=== PATIENT | male | born 1950 | race Hispanic/Latino ===

== ENCOUNTER 2019-01-11 19:57 | Inpatient (IN) | payer MEDICARE ==
--- NOTE | 2019-01-11 20:32 | Emergency Department Report ---
ED Neuro Deficit HPI - General Chief Complaint: Neuro Symptoms/Deficit Stated Complaint: HYPERGLYCEMIA Time Seen by Provider: 01/11/19 20:16 Source: patient, EMS Mode of arrival: Stretcher Limitations: Physical Limitation - History of Present Illness Initial Comments: Patient is a 68-year-old male that presents emergency with complaints of altered mental status and slurred speech. History Per the patient's caregiver and family and EMS. The patient last known well time is 1545 yesterday. She says she came back this morning at 9 AM and noticed he was having difficulties moving and his speech slurred. Patient's caregiver states that patient is on chronic pain medications and patches and tends to overmedicate. Brought in by EMS. Report received from EMS. Patient has a history of chronic pain, polypharmacy, diabetes, hypertension Report received from EMS: EMS states that the patient's blood pressure 124/74, heart rate 104, blood sugar read as high. Patient's presenting illness was slurred speech and difficulty stocking. Negative on the [place] stroke scale -: Sudden Location: speech Presenting Symptoms: Present: Unable to Speak Clearly, Altered Mental Status History of same: Yes Place: home Severity: severe Improves With: none Worsens With: none On Anticoagulants: No Context: sudden onset Associated Symptoms: confusion, loss of appetite, malise, weakness - Related Data Home Medications: Home Medications Medication Instructions Recorded Confirmed Last Taken Pregabalin [Lyrica] 300 mg PO BID 07/24/18 01/11/19 Unknown Buprenorphine [Butrans] 1 each TD QWEEK MDD 1 01/11/19 01/11/19 01/08/19 Insulin Glargine [Lantus VIAL] 40 units SQ QHS 01/11/19 01/11/19 Unknown Lotensin Hct 20-12.5 mg Tablet 1 tab PO DAILY 01/11/19 01/11/19 Unknown Allergies/Adverse Reactions: Allergies Allergy/AdvReac Type Severity Reaction Status Date / Time codeine Allergy Shortness Verified 01/11/19 20:03 of Breath levofloxacin [From Levaquin] AdvReac Anaphylaxis Verified 01/11/19 20:03 ED Review of Systems ROS: Stated complaint: HYPERGLYCEMIA Other details as noted in HPI Comment: Unobtainable due to pts medical conditions ED Past Medical Hx - Past Medical History Previous Medical History?: Yes Hx Hypertension: Yes Hx Diabetes: Yes Additional medical history: PVD - Surgical History Past Surgical History?: Yes Additional Surgical History: [id number] disc surgery in 1988 - Family History Family history: no significant - Social History Smoking Status: Unknown if ever smoked Substance Use Type: None - Medications Home Medications: Home Medications Medication Instructions Recorded Confirmed Last Taken Type Pregabalin [Lyrica] 300 mg PO BID 07/24/18 01/11/19 Unknown History Buprenorphine [Butrans] 1 each TD QWEEK MDD 1 01/11/19 01/11/19 01/08/19 History Insulin Glargine [Lantus VIAL] 40 units SQ QHS 01/11/19 01/11/19 Unknown History Lotensin Hct 20-12.5 mg Tablet 1 tab PO DAILY 01/11/19 01/11/19 Unknown History ED Neuro Physical Exam - General Limitations: Altered Mental Status, Physical Limitation General appearance: alert, in no apparent distress Suspected Stroke: Yes - Head Head exam: Present: atraumatic, normocephalic - Eye Eye exam: Present: normal appearance, PERRL Pupils: Present: normal accommodation - ENT ENT exam: Present: mucous membranes moist - Neck Neck exam: Present: normal inspection - Respiratory Respiratory exam: Present: normal lung sounds bilaterally. Absent: respiratory distress, wheezes, rales - Cardiovascular Cardiovascular Exam: Present: regular rate, normal rhythm. Absent: systolic murmur, diastolic murmur, rubs, gallop - GI/Abdominal GI/Abdominal exam: Present: soft, normal bowel sounds. Absent: distended, tenderness, guarding - Rectal Rectal exam: Present: deferred - Extremities Exam Extremities exam: Present: normal capillary refill, pedal edema, other (multiple areas of skin breakdown and redness on the patient's bilateral feet.). Absent: calf tenderness - Back Exam Back exam: Present: normal inspection - Neurological Exam Neurological exam: Present: alert, altered (patient is A&O 2) - NIHSS Assessment Interval: Baseline 1a. Level of Consciousness: alert/keenly responsive 1b. LOC Questions: answers both correctly 1c. LOC Commands: performs tasks correctly 2. Best Gaze: normal 3. Visual: no visual loss 4. Facial Palsy: minor paralysis 5b. Motor Arm Right: no drift 5a. Motor Arm Left: no drift 6a. Motor Leg Left: no drift 6b. Motor Leg Right: no drift 7. Limb Ataxia: absent 8. Sensory: normal 9. Best Language: no aphasia 10. Dysarthria: mild/moderate dysarthria 11. Extinction/Inattention: no abnormality Total Score: 2 Stroke Severity: Minor Stroke - Skin Skin exam: Present: warm, dry, normal color, rash (Vesicular rash noted on right hip.), other (multiple areas of breakdown on patient's bilateral feet and toes with redness. Redness noted to the sacral area but no skin breakdown to the sacrum.) ED Course Vital Signs 01/11/19 01/11/19 01/11/19 20:45 21:00 21:01 Temperature 99.5 F Pulse Rate 112 H 108 H Respiratory 7 L 15 18 Rate Blood Pressure 132/96 Blood Pressure 132/96 [Right] O2 Sat by Pulse 98 97 Oximetry 01/11/19 01/11/19 01/11/19 21:15 21:30 21:45 Temperature Pulse Rate 104 H 107 H 107 H Respiratory 15 25 H 12 Rate Blood Pressure 153/69 150/94 131/67 Blood Pressure [Right] O2 Sat by Pulse 97 97 97 Oximetry 01/11/19 01/11/19 01/11/19 22:00 22:15 22:30 Temperature Pulse Rate 108 H 107 H 107 H Respiratory 17 14 12 Rate Blood Pressure 131/67 139/92 126/90 Blood Pressure [Right] O2 Sat by Pulse 96 97 98 Oximetry 01/11/19 01/11/19 01/11/19 22:45 23:00 23:08 Temperature Pulse Rate 109 H 109 H 108 H Respiratory 27 H 12 13 Rate Blood Pressure 140/80 135/90 Blood Pressure [Right] O2 Sat by Pulse 97 99 99 Oximetry 01/11/19 01/11/19 01/11/19 23:15 23:30 23:45 Temperature Pulse Rate 117 H 108 H 110 H Respiratory 16 28 H 26 H Rate Blood Pressure 150/99 134/85 124/74 Blood Pressure [Right] O2 Sat by Pulse 99 97 99 Oximetry 01/12/19 01/12/19 00:00 00:15 Temperature Pulse Rate 109 H 109 H Respiratory 27 H 11 L Rate Blood Pressure 119/79 110/74 Blood Pressure [Right] O2 Sat by Pulse Oximetry - Reevaluation(s) Reevaluation #1: I discussed all results with patient and family. Patient will be admitted to the hospitalist service. Patient and family agree with plan of care. 01/11/19 22:25 - Consultations Consultation #1: Discussed case with neurologist and neurologist does not recommend TPA or CTA and recommends admission for further stroke workup. 01/11/19 20:45 Consultation #2: Hospitalist consult for admission. Hospitalist to admit patient and assume care of patient. 01/11/19 22:25 - Lab Data Result diagrams: 01/11/19 20:33 01/11/19 23:00 Lab Results 01/11/19 01/11/19 01/11/19 Range/Units 20:33 20:33 20:33 WBC 14.8 H (4.5-11.0) K/mm3 RBC 4.96 (3.65-5.03) M/mm3 Hgb 13.6 (11.8-15.2) gm/dl Hct 42.2 (35.5-45.6) % MCV 85 (84-94) fl MCH 28 (28-32) pg MCHC 32 (32-34) % RDW 16.8 H (13.2-15.2) % Plt Count 324 (140-440) K/mm3 Add Manual Diff Complete Total Counted 100 Seg Neuts % (Manual) 77.0 H (40.0-70.0) % Band Neutrophils % 1.0 % Lymphocytes % (Manual) 16.0 (13.4-35.0) % Reactive Lymphs % (Man) 0 % Monocytes % (Manual) 6.0 (0.0-7.3) % Eosinophils % (Manual) 0 (0.0-4.3) % Basophils % (Manual) 0 (0.0-1.8) % Metamyelocytes % 0 % Myelocytes % 0 % Promyelocytes % 0 % Blast Cells % 0 % Nucleated RBC % Not Reportable Seg Neutrophils # Man 11.4 H (1.8-7.7) K/mm3 Band Neutrophils # 0.1 K/mm3 Lymphocytes # (Manual) 2.4 (1.2-5.4) K/mm3 Abs React Lymphs (Man) 0.0 K/mm3 Monocytes # (Manual) 0.9 H (0.0-0.8) K/mm3 Eosinophils # (Manual) 0.0 (0.0-0.4) K/mm3 Basophils # (Manual) 0.0 (0.0-0.1) K/mm3 Metamyelocytes # 0.0 K/mm3 Myelocytes # 0.0 K/mm3 Promyelocytes # 0.0 K/mm3 Blast Cells # 0.0 K/mm3 WBC Morphology Not Reportable Hypersegmented Neuts Not Reportable Hyposegmented Neuts Not Reportable Hypogranular Neuts Not Reportable Smudge Cells Not Reportable Toxic Granulation Not Reportable Toxic Vacuolation Not Reportable Dohle Bodies Not Reportable Pelger-Huet Anomaly Not Reportable Marcus Rods Not Reportable Platelet Estimate Consistent w auto Clumped Platelets Not Reportable Plt Clumps, EDTA Not Reportable Large Platelets Not Reportable Giant Platelets Not Reportable Platelet Satelliting Not Reportable Plt Morphology Comment Not Reportable RBC Morphology Not Reportable Dimorphic RBCs Not Reportable Polychromasia Not Reportable Hypochromasia Not Reportable Poikilocytosis Not Reportable Anisocytosis 1+ Microcytosis Not Reportable Macrocytosis Not Reportable Spherocytes Not Reportable Pappenheimer Bodies Not Reportable Sickle Cells Not Reportable Target Cells Not Reportable Tear Drop Cells Not Reportable Ovalocytes Not Reportable Helmet Cells Not Reportable Nguyen-Parkdale Bodies Not Reportable Strum Rings Not Reportable [place] Cells Not Reportable Bite Cells Not Reportable Crenated Cell Not Reportable Elliptocytes Not Reportable Acanthocytes (Spur) Not Reportable Rouleaux Not Reportable Hemoglobin C Crystals Not Reportable Schistocytes Not Reportable Malaria parasites Not Reportable Edson Bodies Not Reportable Hem Pathologist Commnt No PT 15.3 H (12.2-14.9) Sec. INR 1.24 H (0.87-1.13) APTT 22.4 L (24.2-36.6) Sec. Thrombin Time (15.1-19.6) Sec. VBG pH (7.320-7.420) Sodium 124 L (137-145) mmol/L Potassium 3.8 (3.6-5.0) mmol/L Chloride 87.1 L (98-107) mmol/L Carbon Dioxide 20 L (22-30) mmol/L Anion Gap 21 mmol/L BUN 45 H (9-20) mg/dL Creatinine 1.3 (0.8-1.5) mg/dL Estimated GFR 55 ml/min BUN/Creatinine Ratio 35 % Glucose 801 H* (75-100) mg/dL POC Glucose (70-105) Lactic Acid (0.7-2.0) mmol/L Calcium 8.3 L (8.4-10.2) mg/dL Phosphorus (2.5-4.5) mg/dL Magnesium (1.7-2.3) mg/dL Troponin T 0.036 H (0.00-0.029) ng/mL Triglycerides 301 H (2-149) mg/dL Cholesterol 137 (50-199) mg/dL LDL Cholesterol Direct 85 (50-130) mg/dL HDL Cholesterol 25 L (40-59) mg/dL Cholesterol/HDL Ratio 5.48 % 01/11/19 01/11/19 01/11/19 Range/Units 20:33 20:33 22:02 WBC (4.5-11.0) K/mm3 RBC (3.65-5.03) M/mm3 Hgb (11.8-15.2) gm/dl Hct (35.5-45.6) % MCV (84-94) fl MCH (28-32) pg MCHC (32-34) % RDW (13.2-15.2) % Plt Count (140-440) K/mm3 Add Manual Diff Total Counted Seg Neuts % (Manual) (40.0-70.0) % Band Neutrophils % % Lymphocytes % (Manual) (13.4-35.0) % Reactive Lymphs % (Man) % Monocytes % (Manual) (0.0-7.3) % Eosinophils % (Manual) (0.0-4.3) % Basophils % (Manual) (0.0-1.8) % Metamyelocytes % % Myelocytes % % Promyelocytes % % Blast Cells % % Nucleated RBC % Seg Neutrophils # Man (1.8-7.7) K/mm3 Band Neutrophils # K/mm3 Lymphocytes # (Manual) (1.2-5.4) K/mm3 Abs React Lymphs (Man) K/mm3 Monocytes # (Manual) (0.0-0.8) K/mm3 Eosinophils # (Manual) (0.0-0.4) K/mm3 Basophils # (Manual) (0.0-0.1) K/mm3 Metamyelocytes # K/mm3 Myelocytes # K/mm3 Promyelocytes # K/mm3 Blast Cells # K/mm3 WBC Morphology Hypersegmented Neuts Hyposegmented Neuts Hypogranular Neuts Smudge Cells Toxic Granulation Toxic Vacuolation Dohle Bodies Pelger-Huet Anomaly Marcus Rods Platelet Estimate Clumped Platelets Plt Clumps, EDTA Large Platelets Giant Platelets Platelet Satelliting Plt Morphology Comment RBC Morphology Dimorphic RBCs Polychromasia Hypochromasia Poikilocytosis Anisocytosis Microcytosis Macrocytosis Spherocytes Pappenheimer Bodies Sickle Cells Target Cells Tear Drop Cells Ovalocytes Helmet Cells Nguyen-Parkdale Bodies Strum Rings [place] Cells Bite Cells Crenated Cell Elliptocytes Acanthocytes (Spur) Rouleaux Hemoglobin C Crystals Schistocytes Malaria parasites Edson Bodies Hem Pathologist Commnt PT (12.2-14.9) Sec. INR (0.87-1.13) APTT (24.2-36.6) Sec. Thrombin Time 17.8 (15.1-19.6) Sec. VBG pH (7.320-7.420) Sodium 128 L (137-145) mmol/L Potassium 4.0 (3.6-5.0) mmol/L Chloride 91.8 L (98-107) mmol/L Carbon Dioxide 21 L (22-30) mmol/L Anion Gap 19 mmol/L BUN 44 H (9-20) mg/dL Creatinine 1.2 (0.8-1.5) mg/dL Estimated GFR > 60 ml/min BUN/Creatinine Ratio 37 % Glucose 718 H* (75-100) mg/dL POC Glucose (70-105) Lactic Acid (0.7-2.0) mmol/L Calcium 8.0 L (8.4-10.2) mg/dL Phosphorus 3.40 (2.5-4.5) mg/dL Magnesium 2.30 (1.7-2.3) mg/dL Troponin T (0.00-0.029) ng/mL Triglycerides (2-149) mg/dL Cholesterol (50-199) mg/dL LDL Cholesterol Direct (50-130) mg/dL HDL Cholesterol (40-59) mg/dL Cholesterol/HDL Ratio % 01/11/19 01/11/19 01/11/19 Range/Units 22:02 22:02 23:00 WBC (4.5-11.0) K/mm3 RBC (3.65-5.03) M/mm3 Hgb (11.8-15.2) gm/dl Hct (35.5-45.6) % MCV (84-94) fl MCH (28-32) pg MCHC (32-34) % RDW (13.2-15.2) % Plt Count (140-440) K/mm3 Add Manual Diff Total Counted Seg Neuts % (Manual) (40.0-70.0) % Band Neutrophils % % Lymphocytes % (Manual) (13.4-35.0) % Reactive Lymphs % (Man) % Monocytes % (Manual) (0.0-7.3) % Eosinophils % (Manual) (0.0-4.3) % Basophils % (Manual) (0.0-1.8) % Metamyelocytes % % Myelocytes % % Promyelocytes % % Blast Cells % % Nucleated RBC % Seg Neutrophils # Man (1.8-7.7) K/mm3 Band Neutrophils # K/mm3 Lymphocytes # (Manual) (1.2-5.4) K/mm3 Abs React Lymphs (Man) K/mm3 Monocytes # (Manual) (0.0-0.8) K/mm3 Eosinophils # (Manual) (0.0-0.4) K/mm3 Basophils # (Manual) (0.0-0.1) K/mm3 Metamyelocytes # K/mm3 Myelocytes # K/mm3 Promyelocytes # K/mm3 Blast Cells # K/mm3 WBC Morphology Hypersegmented Neuts Hyposegmented Neuts Hypogranular Neuts Smudge Cells Toxic Granulation Toxic Vacuolation Dohle Bodies Pelger-Huet Anomaly Marcus Rods Platelet Estimate Clumped Platelets Plt Clumps, EDTA Large Platelets Giant Platelets Platelet Satelliting Plt Morphology Comment RBC Morphology Dimorphic RBCs Polychromasia Hypochromasia Poikilocytosis Anisocytosis Microcytosis Macrocytosis Spherocytes Pappenheimer Bodies Sickle Cells Target Cells Tear Drop Cells Ovalocytes Helmet Cells Nguyen-Parkdale Bodies Strum Rings Luz Cells Bite Cells Crenated Cell Elliptocytes Acanthocytes (Spur) Rouleaux Hemoglobin C Crystals Schistocytes Malaria parasites Edson Bodies Hem Pathologist Commnt PT (12.2-14.9) Sec. INR (0.87-1.13) APTT (24.2-36.6) Sec. Thrombin Time (15.1-19.6) Sec. VBG pH 7.401 (7.320-7.420) Sodium 133 L (137-145) mmol/L Potassium 3.5 L (3.6-5.0) mmol/L Chloride 95.1 L (98-107) mmol/L Carbon Dioxide 24 (22-30) mmol/L Anion Gap 17 mmol/L BUN 43 H (9-20) mg/dL Creatinine 1.4 (0.8-1.5) mg/dL Estimated GFR 51 ml/min BUN/Creatinine Ratio 31 % Glucose 588 H* (75-100) mg/dL POC Glucose (70-105) Lactic Acid 1.80 (0.7-2.0) mmol/L Calcium 7.8 L (8.4-10.2) mg/dL Phosphorus (2.5-4.5) mg/dL Magnesium (1.7-2.3) mg/dL Troponin T (0.00-0.029) ng/mL Triglycerides (2-149) mg/dL Cholesterol (50-199) mg/dL LDL Cholesterol Direct (50-130) mg/dL HDL Cholesterol (40-59) mg/dL Cholesterol/HDL Ratio % // Range/Units 23:02 WBC (4.5-11.0) K/mm3 RBC (3.65-5.03) M/mm3 Hgb (11.8-15.2) gm/dl Hct (35.5-45.6) % MCV (84-94) fl MCH (28-32) pg MCHC (32-34) % RDW (13.2-15.2) % Plt Count (140-440) K/mm3 Add Manual Diff Total Counted Seg Neuts % (Manual) (40.0-70.0) % Band Neutrophils % % Lymphocytes % (Manual) (13.4-35.0) % Reactive Lymphs % (Man) % Monocytes % (Manual) (0.0-7.3) % Eosinophils % (Manual) (0.0-4.3) % Basophils % (Manual) (0.0-1.8) % Metamyelocytes % % Myelocytes % % Promyelocytes % % Blast Cells % % Nucleated RBC % Seg Neutrophils # Man (1.8-7.7) K/mm3 Band Neutrophils # K/mm3 Lymphocytes # (Manual) (1.2-5.4) K/mm3 Abs React Lymphs (Man) K/mm3 Monocytes # (Manual) (0.0-0.8) K/mm3 Eosinophils # (Manual) (0.0-0.4) K/mm3 Basophils # (Manual) (0.0-0.1) K/mm3 Metamyelocytes # K/mm3 Myelocytes # K/mm3 Promyelocytes # K/mm3 Blast Cells # K/mm3 WBC Morphology Hypersegmented Neuts Hyposegmented Neuts Hypogranular Neuts Smudge Cells Toxic Granulation Toxic Vacuolation Dohle Bodies Pelger-Huet Anomaly Marcus Rods Platelet Estimate Clumped Platelets Plt Clumps, EDTA Large Platelets Giant Platelets Platelet Satelliting Plt Morphology Comment RBC Morphology Dimorphic RBCs Polychromasia Hypochromasia Poikilocytosis Anisocytosis Microcytosis Macrocytosis Spherocytes Pappenheimer Bodies Sickle Cells Target Cells Tear Drop Cells Ovalocytes Helmet Cells Nguyen-Parkdale Bodies Strum Rings Luz Cells Bite Cells Crenated Cell Elliptocytes Acanthocytes (Spur) Rouleaux Hemoglobin C Crystals Schistocytes Malaria parasites Edson Bodies Hem Pathologist Commnt PT (12.2-14.9) Sec. INR (0.87-1.13) APTT (24.2-36.6) Sec. Thrombin Time (15.1-19.6) Sec. VBG pH (7.320-7.420) Sodium (137-145) mmol/L Potassium (3.6-5.0) mmol/L Chloride (98-107) mmol/L Carbon Dioxide (22-30) mmol/L Anion Gap mmol/L BUN (9-20) mg/dL Creatinine (0.8-1.5) mg/dL Estimated GFR ml/min BUN/Creatinine Ratio % Glucose (75-100) mg/dL POC Glucose > 500 H (70-105) Lactic Acid (0.7-2.0) mmol/L Calcium (8.4-10.2) mg/dL Phosphorus (2.5-4.5) mg/dL Magnesium (1.7-2.3) mg/dL Troponin T (0.00-0.029) ng/mL Triglycerides (2-149) mg/dL Cholesterol (50-199) mg/dL LDL Cholesterol Direct (50-130) mg/dL HDL Cholesterol (40-59) mg/dL Cholesterol/HDL Ratio % - EKG Data -: EKG Interpreted by Me EKG shows normal: sinus rhythm, axis, intervals, QRS complexes, ST-T waves Rate: tachycardia - Radiology Data Radiology results: report reviewed CT head/brain wo con INDICATION: stroke. TECHNIQUE: Routine CT head without contrast. All CT scans at this location are performed using CT dose reduction for ALARA by means of automated exposure control. COMPARISON: Head CT on 02/29/2016 FINDINGS: BRAIN / INTRACRANIAL CONTENTS: No acute hemorrhage, mass effect, midline shift, or hydrocephalus. No appreciable acute large territorial or lacunar infarct. No chronic infarct. Age-commensurate ventricular and cisternal/sulcal prominence. ORBITS: No significant abnormality of visualized orbits. SINUSES / MASTOIDS: No significant abnormality of visualized sinuses and mastoid air cells. ADDITIONAL FINDINGS: None. IMPRESSION: 1. No acute intracranial abnormality. CHEST 1 VIEW INDICATION / CLINICAL INFORMATION: ams. COMPARISON: None FINDINGS: SUPPORT DEVICES: None. HEART / MEDIASTINUM: No significant abnormality. LUNGS / PLEURA: No significant pulmonary or pleural abnormality. No pneumothorax. ADDITIONAL FINDINGS: No significant additional findings. IMPRESSION: No acute pulmonary or pleural abnormality.. - Medical Decision Making Patient is a 68-year-old male that presents emergency room for slurred speech and difficulty speaking and weakness. Patient's symptoms are gone for more than 24 hours. Last known well time was 345 yesterday. Neurology consultation and code stroke ran based on complaints. Patient's history per caregiver, EMS and family due to the patient's confusion and altered mental status. Neurology recommendations received an neurology note reviewed. Patient is on a candidate for TPA or further advanced imaging i.e. CTA in the ER but will require further stroke workup and MRI as an inpatient. Patient's labs have multiple ab normalities. All labs reviewed. Patient's chest x-ray negative. Patient had CT negative. EKG reviewed and noted tachycardia. Patient given fluids. Patient given antibiotics for skin cellulitis of lower extremities. Patient started on a diabetic ketoacidosis protocol due to acidosis and elevated blood sugar. Patient admitted to the hospitalist service. Patient admitted into the ICU. Differential diagnosis include but not exclusive to weakness, slurred speech, CVA, metabolic encephalopathy, Sirs, sepsis, deconditioning, dehydration, hyperglycemia, DKA, HHS - Differential Diagnosis see MDM Critical Care Time: Yes Critical care attestation.: If time is entered above; I have spent that time in minutes in the direct care of this critically ill patient, excluding procedure time. Critical Care Time: 55 minutes ED Disposition Clinical Impression: SIRS (systemic inflammatory response syndrome), Metabolic encephalopathy, Slurred speech, Dehydration, Weakness, Elevated troponin I level, Physical deconditioning Cellulitis Qualifiers: Site of cellulitis: extremity Site of cellulitis of extremity: lower extremity Laterality: right Qualified Code(s): L03.115 - Cellulitis of right lower limb DKA (diabetic ketoacidoses) Qualifiers: Diabetes mellitus type: type 2 Diabetes mellitus complication detail: without coma Qualified Code(s): E11.10 - Type 2 diabetes mellitus with ketoacidosis without coma Shingles Qualifiers: Herpes zoster complications: without complications Qualified Code(s): B02.9 - Zoster without complications Altered mental state Qualifiers: Altered mental status type: unspecified Qualified Code(s): R41.82 - Altered mental status, unspecified Disposition: DC-09 OP ADMIT IP TO THIS HOSP Is pt being admited?: Yes Does the pt Need Aspirin: No Condition: Critical Time of Disposition: 22:11
--- NOTE | 2019-01-11 20:43 | Consultation ---
History of Present Illness History of present illness: [facility] Consult [facility] Impression: Patient with somnolence and slurred speech. Possible drug intoxication, but given left nasolabial fold flattening need to rule out new right hemispheric stroke. Not a tpa candidate due to: out of window Not an RANDY candidate due to: out of window, presentation not suggestive of LVO Differential Diagnosis: 1. Cardioembolic stroke 2. Small vessel disease/lacune 3. Thromboembolic, [id number] mechanism 4. Hypercoagulable state-related infarct 5. Transient ischemic attack 6. Thrombotic mechanism, large artery disease Comments: Door time: 1956 [facility] contacted: 2010 [facility] at bedside: 2019 NIHSS assessment time: 2027 Recommendations: MRI brain wo ASA Permissive HTN Statin inpatient neurology consultation Inpatient stroke evaluation as per Neurology/ Internal Medicine Discussed with ED MD --------- CC: stroke alert History of Present Illness Patient is a68 year old man with a history of chronic pain, polypharmacy, DM, HTN presenting with AMS. Last seen normal by his caregiver yesterday at 1545. This morning she arrived a little after 0900 and he would not eat or get up to move. His speech has been slurred. Caregiver states she noted some of his pain meds were missing, namely pain patches. She states he tends to overmedicate with his analgesics and this can happen. She was concerned so had him transported to the ED. Diagnostic: CT head wo - nothing acute Exam: NIHSS score: 3 Somnolent Left nasolabial fold flat Slurred speech Medical Decision Making: - Extensive number of diagnosis or management options are considered above. - Extensive amount of complex data reviewed. - High risk of complication and/or morbidity or mortality are associated with differential diagnostic considerations above. - There may be Uncertain outcome and increased probability of prolonged funct ional impairment or high probability of severe prolonged functional impairment associated with some of these differential diagnosis. Medical Data Reviewed: 1.Data reviewed include clinical labs, radiology, Medical Tests; 2.Tests results discussed w/performing or interpreting physician; 3.Obtaining/reviewing old medical records; 4.Obtaining case history from another source; 5.Independent review of image, tracing or specimen. Patient was informed the Neurology Consult would happen via Tele[facility] consult by way of interactive audio and video telecommunications and consented to receiving care in this manner. Medications and Allergies Allergies Allergy/AdvReac Type Severity Reaction Status Date / Time codeine Allergy Shortness Verified 01/11/19 20:03 of Breath levofloxacin [From Levaquin] AdvReac Anaphylaxis Verified 01/11/19 20:03 Home Medications Medication Instructions Recorded Confirmed Last Taken Type Lantus 40 units SQ HS 07/24/18 07/24/18 Unknown History Pregabalin [Lyrica] 300 mg PO BID 07/24/18 07/24/18 Unknown History Lisinopril [Zestril TAB] 20 mg PO QDAY #30 tablet 07/27/18 Unknown Rx Sulfamethoxazole/Trimethoprim 1 each PO Q12HR #10 tablet 07/27/18 Unknown Rx [Bactrim DS TAB] metroNIDAZOLE [Flagyl TAB] 500 mg PO Q8HR #15 tablet 07/27/18 Unknown Rx - Level of Consciousness 1a. Level of Consciousness: arousable/minor stimuli - LOC Questions 1b. LOC Questions: answers both correctly - LOC Command 1c. LOC Commands: performs tasks correctly - Best Gaze 2. Best Gaze: normal - Visual 3. Visual: no visual loss - Facial Palsy 4. Facial Palsy: minor paralysis - Motor Arm 5a. Motor Arm Left: no drift 5b. Motor Arm Right: no drift - Motor Leg 6a. Motor Leg Left: no drift 6b. Motor Leg Right: no drift - Limb Ataxia 7. Limb Ataxia: absent - Sensory 8. Sensory: normal - Best Language 9. Best Language: no aphasia - Dysarthria 10. Dysarthria: mild/moderate dysarthria - Extinction and Inattention 11. Extinction/Inattention: no abnormality - Scoring Total Score: 3 Stroke Severity: Minor Stroke
--- NOTE | 2019-01-11 20:49 | Cat Scan Report ---
CT head/brain wo con INDICATION: stroke. TECHNIQUE: Routine CT head without contrast. All CT scans at this location are performed using CT dos e reduction for ALARA by means of automated exposure control. COMPARISON: Head CT on 02/29/2016 FINDINGS: BRAIN / INTRACRANIAL CONTENTS: No acute hemorrhage, mass effect, midline shift, or hydrocephalus. No appreciable acute large territorial or lacunar infarct. No chronic infarct. Age-commensurate ventricu lar and cisternal/sulcal prominence. ORBITS: No significant abnormality of visualized orbits. SINUSES / MASTOIDS: No significant abnormality of visualized sinuses and mastoid air cells. ADDITIONAL FINDINGS: None. IMPRESSION: 1. No acute intracranial abnormality. Findings discussed with the ordering physician at 7:45 PM central time on 01/11/2019. Signer Name: Peter Charles MD Signed: 01/11/2019 8:45 PM Workstation Name: [id number]
[2019-01-11 20:50] LABS: Hematocrit 42.2 % (35.5-45.6); Hemoglobin 13.6 gm/dl (11.8-15.2); Mean Corpuscular HGB Conc 32 % (32-34); Mean Corpuscular Volume 85 fl (84-94); Platelet Count 324 K/mm3 (140-440); Red Blood Count 4.96 M/mm3 (3.65-5.03); Red Cell Distribution Width 16.8 % (13.2-15.2)
[2019-01-11 21:03] LABS: Calcium 8.3 mg/dL (8.4-10.2)
[2019-01-11 21:06] LABS: INR 1.24 (0.87-1.13); Partial Thromboplastin Time 22.4 Sec. (24.2-36.6)
[2019-01-11] MEDS ORDERED: D50W (25GM) Syringe IV PRN (21:19)
[2019-01-11] MEDS ORDERED: NACL 0.9% 1000 ML 1,000 ML IV ONE (21:19)
[2019-01-11] MEDS ORDERED: MAXIPIME/NS 2 GM/100 ML 2 GM/100 ML BAG IV ONE (21:20)
[2019-01-11] MEDS ORDERED: CLEOCIN 600 MG/50 mL 600 MG/50 ML BAG IV ONE (21:40)
[2019-01-11 21:46] LABS: Chol/HDL Ratio 5.48 %
[2019-01-11 22:00] LABS: Anisocytosis 1+; Band Neutrophils # (Manual) 0.1 K/mm3; Basophils % (Manual) 0 % (0.0-1.8); Eosinophils % (Manual) 0 % (0.0-4.3); Platelet Estimate Consistent w Auto; Total Cells Counted 100
[2019-01-11] MEDS ORDERED: HumuLIN R 100 UNITS in NACL 0.9% 99 ML IV SCH (22:00)
--- NOTE | 2019-01-11 22:45 | XRay Report ---
CHEST 1 VIEW INDICATION / CLINICAL INFORMATION: ams. COMPARISON: None FINDINGS: SUPPORT DEVICES: None. HEART / MEDIASTINUM: No significant abnormality. LUNGS / PLEURA: No significant pulmonary or pleural abnormality. No pneumothorax. ADDITIONAL FINDINGS: No significant additional findings. IMPRESSION: No acute pulmonary or pleural abnormality. Signer Name: Chacho Santos MD FACR Signed: 01/11/2019 10:40 PM Workstation Name: [id number]
[2019-01-11 23:09] LABS: BUN/Creatinine Ratio 37; Blood Urea Nitrogen 44 mg/dL (9-20); Hemolysis Index 27
[2019-01-11 23:39] LABS: Calcium 7.8 mg/dL (8.4-10.2)
[2019-01-12] MEDS ORDERED: VANCOMYCIN PHARMACY TO DOSE IV SCH (01:00)
[2019-01-12] MEDS ORDERED: NACL 0.9% 1000 ML 1,000 ML IV SCH (01:00)
[2019-01-12] MEDS ORDERED: VANCOMYCIN 1,750 MG in NACL 0.9% 500 ML 500 ML IV ONE (01:00)
[2019-01-12] MEDS: KCL 10MEQ/100ML 10 MEQ/100 ML BAG IV SCH ×5 (01:33→14:25)
[2019-01-12] MEDS ORDERED: TORADOL IV NR (03:18)
[2019-01-12] MEDS ORDERED: D5W/0.45% NACL/KCL 20 MEQ 20 MEQ/1,000 ML BAG IV SCH (04:00)
[2019-01-12 04:37] LABS: BUN/Creatinine Ratio 33; Blood Urea Nitrogen 39 mg/dL (9-20); Calcium 8.5 mg/dL (8.4-10.2); Hemolysis Index 5
--- NOTE | 2019-01-12 05:11 | History and Physical Report ---
CHIEF COMPLAINT: Change in mental status. Other complaint includes slurred speech. HISTORY OF PRESENTING ILLNESS: The patient is a 68-year-old male who lives alone and has a tariff clerk coming in to check on him. The patient was noted by the health tariff clerk that came in to be having mental status change with slurred speech. Also, the patient's right foot was noted to be swollen red and oozing fluids and the patient was sent in for evaluation. There was no history of fever or chills and no history of chest pain, shortness of breath, nausea or vomiting. PAST MEDICAL HISTORY: Pertinent for diabetes mellitus, hypertension, peripheral vascular disease. PAST SURGICAL HISTORY: Pertinent for surgery involving the L4, L5, S1 vertebral bones. FAMILY HISTORY: Family history was reviewed and noncontributory. SOCIAL HISTORY: The patient lives alone, does not smoke, does not drink alcohol and does not use illicit drug. MEDICATIONS: The patient is on Lyrica 300 mg by mouth twice daily. The patient is on buprenorphine 1 transdermally every week. The patient is also on Lantus insulin 40 units subcutaneous at bedtime and Lotensin/hydrochlorothiazide 20/12.5 one by mouth daily. ALLERGIES: The patient is allergic to CODEINE and LEVOFLOXACIN. REVIEW OF SYSTEMS: CONSTITUTIONAL: There is no fever, no chills, no diaphoresis. HEENT: There is no headache or sore throat. CARDIOVASCULAR SYSTEM: There is no chest pain or orthopnea. RESPIRATORY SYSTEM: There is no shortness of breath or cough. GASTROINTESTINAL SYSTEM: There is no abdominal pain, nausea, vomiting, diarrhea or constipation. NEUROLOGICAL SYSTEM: Altered mental status noted. Slurred speech noted. There is no numbness. MUSCULOSKELETAL: Swelling and pain in the right foot noted. DERMATOLOGICAL SYSTEM: Fluid discharge from the right foot with skin excoriation noted and redness of the right also noted with multiple skin excoriation and scattered all over the body. GENITOURINARY SYSTEM: There is no dysuria, hematuria or flank pain. Rest of system review is normal. PHYSICAL EXAMINATION: GENERAL: At the time of exam, the patient was found to be lethargic, but arousable and able to communicate and not in acute distress. VITAL SIGNS: Initially show temperature of 99.5 degrees Fahrenheit, pulse of 112, normal respiratory rate , blood pressure 132/96, O2 sat of 98% on room air. HEENT: Showed pupils to be equal, round, reactive to light and accommodating. Extraocular muscles are intact. NECK: Supple with no JVD or carotid bruit. CARDIOVASCULAR SYSTEM: Showed normal first and second heart sounds with no gallops or murmur. RESPIRATORY SYSTEM: Show good air entry on both sides of the lungs with no abnormal breath sounds. GASTROINTESTINAL SYSTEM: Show abdomen to be full, soft, nontender with no organomegaly or rigidity. NEUROLOGICAL: Shows the patient to be lethargic with flattening of the left nasolabial fold and slurred speech. There was also no weakness of any part of the limbs. The sensory function was intact. MUSCULOSKELETAL SYSTEM: Shows swelling of the right foot with oozing of fluid and redness. DERMATOLOGICAL SYSTEM: Shows redness of the right area with fluid oozing out of the right foot, especially in the distal toe areas. There are multiple areas of excoriations scattered all over the skin of the body. GENITOURINARY SYSTEM: Showed no costovertebral angle tenderness. PERTINENT LABORATORY AND IMAGING STUDIES: The patient has CT of the head without contrast done that showed no acute intracranial lesion. Also, the patient had chest x-ray done that shows no acute pulmonary or pleural abnormality. LABORATORY RESULTS: The patient's CBC showed elevated white count of 14,800 with normal hemoglobin and normal hematocrit with CBC differential showing high segmented neutrophil. The patient's coagulation studies show slight increase in protime of 15.3 with slight increase in INR of 1.24. The patient's chemistry showed low sodium level of 133 with slightly low potassium level of 3.5 and low chloride of 95.1 with normal CO2 of 24 and anion gap of 14 with slightly elevated BUN of 43 and normal creatinine level of 1.4 with low estimated GFR of 51 and high blood glucose of about 588. The patient's calcium level was also low with a value of 7.8 and troponin level was elevated with a value of 0.036 with rest of chemistry being unremarkable. DIAGNOSES: 1. Altered mental status with possible cerebrovascular accident. 2. Hyperosmolar state. 3. Elevated troponin level. 4. Cellulitis of the right foot. PLAN OF CARE: 1. The patient will be admitted to ICU. 2. The patient will continue IV insulin drip started in the Emergency Room until blood glucose normalizes. 3. The patient will have basic metabolic panel checked at 2 hourly and 8 hourly intervals. 4. The patient will have IV normal saline running at 125 mL an hour. 5. The patient will have IV potassium chloride 20 mEq given over 1 hour. 6. The patient will be on IV vancomycin with pharmacy to dose. 7. The patient will be on IV cefepime or Maxipime 1 gram q. 8 hours. 8. The patient will have wound care nurse consult for evaluation and treatment of right foot cellulitis. 9. The patient will have Neurology consult with Dr. Prashant Leija in the morning and will also have speech therapy consult for evaluation and treatment. 10. The patient will have Cardiology consult with Dr. Montero because of elevated troponin levels. 11. The patient will have critical care consult with Dr. Sheffield because of ICU admission that requires IV insulin drip. 12. The patient will have MRI of the brain without contrast done this morning. 13. The patient will have bilateral carotid Doppler done this morning because of suspected stroke. 14. The patient will have 2D echo done this morning for evaluation for possible stroke. 15. The patient will be on p.r.n. medications like Tylenol 650 mg by mouth every 4 hours for fever and headache and will also be on IV Zofran 4 mg every 8 hours as needed for nausea and vomiting. 16. The patient will be on oxygen by nasal cannula at 2 liters per minute. JOB# [id number] [facility]IS[facility]
[2019-01-12] MEDS: MAXIPIME/NS 1 GM/100 ML 1 GM/100 ML BAG IV SCH ×3 (07:00→22:33)
[2019-01-12 07:35] LABS: Creatine Kinase MB 1.2 ng/mL (0.0-4.0)
[2019-01-12 07:40] LABS: BUN/Creatinine Ratio 36; Blood Urea Nitrogen 36 mg/dL (9-20); Calcium 8.3 mg/dL (8.4-10.2); Hemolysis Index 4
--- NOTE | 2019-01-12 07:49 | Progress Note ---
Assessment and Plan Assessment and plan: --Hyperosmolar nonketotic hyperglycemia; On insulin drip, blood sugars reasonably controlled Start ADA diet, DC insulin drip, start long-acting 7030 insulin Check A1C, diabetic education, nutrition and education --Non-ST elevation RI; nonspecific elevation of cardiac enzymes Continue current cardiac medications, follow echocardiogram, cardiology consult --Possible acute CVA;slurred speech and left-sided weakness not a candidate for TPA Continue aspirin and statin ,Neuro workup is in progress, neurology consult. --Hypokalemia; replace per protocol monitor lites --Hyponatremia; isn't on admission, probably pseudohyponatremia Secondary to hyperglycemia, mild improvement --History of hypertension; blood pressures well controlled Continue current management, PRN hydralazine --Diabetic foot infection:Elevate the limb, IV antibiotics Wound cultures, wound care, ID consult if needed Vascular consult, arterial venous Doppler X-ray bilateral feet and ankles to rule out osteomyelitis --Dyslipidemia; Statin --DVT prophylaxis; Lovenox --Full code; Monitor closely and adjust the management as needed Patient is stable to be transferred out of ICU to [facility] unit Critical care time 35 minutes History Interval history: Patient seen and examined,Chart reviewed Patient was admitted with Hyperosmolar nonketotic Hyperglycemia on insulin drip, Patient's blood sugars reasonable Patient was also admitted with strokelike symptoms, workup is in progress Neck awake responding appropriately Vital signs noted Hospitalist Physical - Constitutional Vitals: Temp Pulse Resp BP Pulse Ox 99.5 F 101 H 31 H 138/81 96 01/11/19 21:00 01/12/19 07:41 01/12/19 07:41 01/12/19 07:41 01/12/19 07:41 General appearance: Present: no acute distress, well-nourished - EENT Eyes: Present: PERRL, EOM intact - Neck Neck: Present: supple, normal ROM - Respiratory Respiratory effort: normal Respiratory: bilateral: diminished, negative: rales, rhonchi, wheezing - Cardiovascular Rhythm: regular Heart Sounds: Present: S1 & S2 - Extremities Extremities: abnormal (diabetic foot infection) Extremity abnormal: edema, erythema - Abdominal General gastrointestinal: soft, non-tender, non-distended, normal bowel sounds - Integumentary Integumentary: Present: clear, warm - Psychiatric Psychiatric: appropriate mood/affect, cooperative - Neurologic Neurologic: moves all extremities, other (Lt-sided weakness) Results - Labs CBC & Chem 7: 01/11/19 20:33 01/12/19 15:07 Labs: Laboratory Last Values WBC 14.8 K/mm3 (4.5-11.0) H 01/11/19 20:33 RBC 4.96 M/mm3 (3.65-5.03) 01/11/19 20:33 Hgb 13.6 gm/dl (11.8-15.2) 01/11/19 20:33 Hct 42.2 % (35.5-45.6) 01/11/19 20:33 MCV 85 fl (84-94) 01/11/19 20:33 MCH 28 pg (28-32) 01/11/19 20:33 MCHC 32 % (32-34) 01/11/19 20:33 RDW 16.8 % (13.2-15.2) H 01/11/19 20:33 Plt Count 324 K/mm3 (140-440) 01/11/19 20:33 Add Manual Diff Complete 01/11/19 20:33 Total Counted 100 01/11/19 20:33 Seg Neuts % (Manual) 77.0 % (40.0-70.0) H 01/11/19 20:33 1.0 % 01/11/19 20:33 16.0 % (13.4-35.0) 01/11/19 20:33 Reactive Lymphs % (Man) 0 % 01/11/19 20:33 6.0 % (0.0-7.3) 01/11/19 20:33 0 % (0.0-4.3) 01/11/19 20:33 0 % (0.0-1.8) 01/11/19 20:33 0 % 01/11/19 20:33 0 % 01/11/19 20:33 0 % 01/11/19 20:33 0 % 01/11/19 20:33 Nucleated RBC % Not Reportable 01/11/19 20:33 Seg Neutrophils # Man 11.4 K/mm3 (1.8-7.7) H 01/11/19 20:33 Band Neutrophils # 0.1 K/mm3 01/11/19 20:33 2.4 K/mm3 (1.2-5.4) 01/11/19 20:33 Abs React Lymphs (Man) 0.0 K/mm3 01/11/19 20:33 0.9 K/mm3 (0.0-0.8) H 01/11/19 20:33 0.0 K/mm3 (0.0-0.4) 01/11/19 20:33 0.0 K/mm3 (0.0-0.1) 01/11/19 20:33 0.0 K/mm3 01/11/19 20:33 0.0 K/mm3 01/11/19 20:33 0.0 K/mm3 01/11/19 20:33 Blast Cells # 0.0 K/mm3 01/11/19 20:33 WBC Morphology Not Reportable 01/11/19 20:33 Hypersegmented Neuts Not Reportable 01/11/19 20:33 Hyposegmented Neuts Not Reportable 01/11/19 20:33 Hypogranular Neuts Not Reportable 01/11/19 20:33 Not Reportable 01/11/19 20:33 Not Reportable 01/11/19 20:33 Not Reportable 01/11/19 20:33 Not Reportable 01/11/19 20:33 Not Reportable 01/11/19 20:33 Not Reportable 01/11/19 20:33 Consistent w auto 01/11/19 20:33 Not Reportable 01/11/19 20:33 Plt Clumps, EDTA Not Reportable 01/11/19 20:33 Not Reportable 01/11/19 20:33 Not Reportable 01/11/19 20:33 Not Reportable 01/11/19 20:33 Plt Morphology Comment Not Reportable 01/11/19 20:33 RBC Morphology Not Reportable 01/11/19 20:33 Dimorphic RBCs Not Reportable 01/11/19 20:33 Not Reportable 01/11/19 20:33 Not Reportable 01/11/19 20:33 Not Reportable 01/11/19 20:33 1+ 01/11/19 20:33 Not Reportable 01/11/19 20:33 Not Reportable 01/11/19 20:33 Not Reportable 01/11/19 20:33 Not Reportable 01/11/19 20:33 Not Reportable 01/11/19 20:33 Not Reportable 01/11/19 20:33 Not Reportable 01/11/19 20:33 Not Reportable 01/11/19 20:33 Not Reportable 01/11/19 20:33 Not Reportable 01/11/19 20:33 Not Reportable 01/11/19 20:33 Not Reportable 01/11/19 20:33 Not Reportable 01/11/19 20:33 Not Reportable 01/11/19 20:33 Not Reportable 01/11/19 20:33 Acanthocytes (Spur) Not Reportable 01/11/19 20:33 Rouleaux Not Reportable 01/11/19 20:33 Not Reportable 01/11/19 20:33 Not Reportable 01/11/19 20:33 Not Reportable 01/11/19 20:33 Not Reportable 01/11/19 20:33 Hem Pathologist Commnt No 01/11/19 20:33 PT 15.3 Sec. (12.2-14.9) H 01/11/19 20:33 INR 1.24 (0.87-1.13) H 01/11/19 20:33 APTT 22.4 Sec. (24.2-36.6) L 01/11/19 20:33 17.8 Sec. (15.1-19.6) 01/11/19 20:33 VBG pH 7.401 (7.320-7.420) 01/11/19 22:02 Sodium 137 mmol/L (137-145) 01/12/19 06:47 Potassium 3.3 mmol/L (3.6-5.0) L 01/12/19 06:47 Chloride 101.0 mmol/L (98-107) 01/12/19 06:47 Carbon Dioxide 24 mmol/L (22-30) 01/12/19 06:47 15 mmol/L 01/12/19 06:47 BUN 36 mg/dL (9-20) H 01/12/19 06:47 1.0 mg/dL (0.8-1.5) 01/12/19 06:47 Estimated GFR > 60 ml/min 01/12/19 06:47 36 % 01/12/19 06:47 Glucose 121 mg/dL (75-100) H 01/12/19 06:47 POC Glucose 118 (70-105) H 01/12/19 06:26 Lactic Acid 1.80 mmol/L (0.7-2.0) 01/11/19 22:02 Calcium 8.3 mg/dL (8.4-10.2) L 01/12/19 06:47 Phosphorus 3.40 mg/dL (2.5-4.5) 01/11/19 20:33 Magnesium 2.30 mg/dL (1.7-2.3) 01/11/19 20:33 27 units/L (55-170) L 01/12/19 06:47 CK-MB (CK-2) 1.2 ng/mL (0.0-4.0) 01/12/19 06:47 CK-MB (CK-2) Rel Index 4.4 (0-4) H 01/12/19 06:47 0.031 ng/mL (0.00-0.029) H 01/12/19 06:47 Triglycerides 301 mg/dL (2-149) H 01/11/19 20:33 Cholesterol 137 mg/dL (50-199) 01/11/19 20:33 85 mg/dL (50-130) 01/11/19 20:33 25 mg/dL (40-59) L 01/11/19 20:33 5.48 % 01/11/19 20:33 Active Medications - Current Medications Current Medications: Generic Name Dose Route Start Last Admin Trade Name Freq PRN Reason Stop Dose Admin Acetaminophen 650 mg 01/12/19 00:10 Tylenol PO Q4H PRN Fever >101 Dextrose 0 ml 01/11/19 21:19 D50w (25gm) Syringe IV PRN PRN Hypoglycemia Heparin Sodium (Porcine) 5,000 unit 01/12/19 10:00 Heparin SUB-Q Q12HR MOOES Insulin Human Regular 100 100 mls @ 1 mls/hr 01/11/19 22:00 01/12/19 06:25 units/ Sodium Chloride IV 1.5 units/hr TITR MOOSE 1.5 mls/hr Titration Protocol 1 UNITS/HR Cefepime HCl 1 gm in 100 mls @ 200 mls/hr 01/12/19 06:00 01/12/19 07:00 Maxipime/Ns 1 Gm/100 Ml IV 200 mls/hr Q8HR MOOSE Administration Protocol Vancomycin HCl 1,250 mg/ 275 mls @ 183.333 mls/hr 01/12/19 14:00 Sodium Chloride IV Q24H MOOSE Potassium Chloride/Dextrose/Sod Cl 20 meq in 1,000 mls @ 125 mls/hr 01/12/19 04:00 01/12/19 03:59 D5w/0.45% Nacl/Kcl 20 Meq IV 125 mls/hr DIRECT MOOSE Administration
[2019-01-12] MEDS ORDERED: K-DUR PO ONE (07:50)
--- NOTE | 2019-01-12 10:16 | Consultation ---
History of Present Illness Consult date: 01/12/19 Requesting physician: ISSAC MORALEZ Consult reason: elevated troponin History of present illness: Patient is a 68-year-old male with a past medical history of HTN, DM, debility, ? muscular dystrophy, psych d/o. He is lethargic on evaluation and thus HPI is obtained per the chart. He presented for evaluation of altered mental status and slurred speech noted by pt's caregiver. Patient's caregiver states that patient is on chronic pain medications and patches and tends to overmedicate. Following arrival, pt noted to have hyperglycemia with suspected HHNK and was initiated on insulin gtt. Pt also noted to have minimally elevated troponins and thus cardiology has been consulted. Past History Past Medical History: diabetes, hypertension, other (? muscular dystrophy ) Medications and Allergies Allergies Allergy/AdvReac Type Severity Reaction Status Date / Time codeine Allergy Shortness Verified 01/11/19 20:03 of Breath levofloxacin [From Levaquin] AdvReac Anaphylaxis Verified 01/11/19 20:03 Home Medications Medication Instructions Recorded Confirmed Last Taken Type Pregabalin [Lyrica] 300 mg PO BID 07/24/18 01/11/19 Unknown History Buprenorphine [Butrans] 1 each TD QWEEK MDD 1 01/11/19 01/11/19 01/08/19 History Insulin Glargine [Lantus VIAL] 40 units SQ QHS 01/11/19 01/11/19 Unknown History Lotensin Hct 20-12.5 mg Tablet 1 tab PO DAILY 01/11/19 01/11/19 Unknown History Active Meds: Active Medications Acetaminophen (Tylenol) 650 mg PO Q4H PRN PRN Reason: Fever >101 Dextrose (D50w (25gm) Syringe) 0 ml IV PRN PRN PRN Reason: Hypoglycemia Heparin Sodium (Porcine) (Heparin) 5,000 unit SUB-Q Q12HR [facility] Insulin Human Regular 100 (units/ Sodium Chloride) 100 mls @ 1 mls/hr IV TITR [facility]; Protocol Last Titration: 01/12/19 06:25 Dose: 1.5 units/hr, 1.5 mls/hr Documented by: Cefepime HCl (Maxipime/Ns 1 Gm/100 Ml) 1 gm in 100 mls @ 200 mls/hr IV Q8HR [facility]; Protocol Last Admin: 01/12/19 07:00 Dose: 200 mls/hr Documented by: Vancomycin HCl 1,250 mg/ (Sodium Chloride) 275 mls @ 183.333 mls/hr IV Q24H [facility] Potassium Chloride/Dextrose/Sod Cl (D5w/0.45% Nacl/Kcl 20 Meq) 20 meq in 1,000 mls @ 125 mls/hr IV DIRECT MOOSE Last Admin: 01/12/19 03:59 Dose: 125 mls/hr Documented by: Potassium Chloride (Kcl 10meq/100ml) 10 meq in 100 mls @ 100 mls/hr IV Q1H MOOSE Stop: 01/12/19 11:59 Review of Systems ROS unobtainable: due to mental status Physical Examination Vital Signs Pulse Resp 112 H 7 L 01/11/19 20:45 01/11/19 20:45 General appearance: other (lethargic) Cardiac: Positive: Reg Rate and Rhythm, S1/S2 Lungs: Positive: Decreased Breath Sounds Neuro: Positive: Other (lethargic) Skin: Negative: Rash Extremities: Absent: edema Results 01/11/19 20:33 01/12/19 06:47 Cardiac Enzymes 01/12/19 Range/Units 06:47 CK-MB (CK-2) 1.2 (0.0-4.0) ng/mL Coagulation 01/11/19 Range/Units 20:33 PT 15.3 H (12.2-14.9) Sec. INR 1.24 H (0.87-1.13) APTT 22.4 L (24.2-36.6) Sec. Lipids 01/11/19 Range/Units 20:33 Triglycerides 301 H (2-149) mg/dL Cholesterol 137 (50-199) mg/dL HDL Cholesterol 25 L (40-59) mg/dL Cholesterol/HDL Ratio 5.48 % CBC 01/11/19 Range/Units 20:33 WBC 14.8 H (4.5-11.0) K/mm3 RBC 4.96 (3.65-5.03) M/mm3 Hgb 13.6 (11.8-15.2) gm/dl Hct 42.2 (35.5-45.6) % Plt Count 324 (140-440) K/mm3 Comprehensive Metabolic Panel 01/11/19 01/11/19 01/11/19 Range/Units 20:33 22:02 23:00 Sodium 124 L 128 L 133 L (137-145) mmol/L Potassium 3.8 4.0 3.5 L (3.6-5.0) mmol/L Chloride 87.1 L 91.8 L 95.1 L (98-107) mmol/L Carbon Dioxide 20 L 21 L 24 (22-30) mmol/L BUN 45 H 44 H 43 H (9-20) mg/dL Creatinine 1.3 1.2 1.4 (0.8-1.5) mg/dL Glucose 801 H* 718 H* 588 H* (75-100) mg/dL Calcium 8.3 L 8.0 L 7.8 L (8.4-10.2) mg/dL 01/12/19 01/12/19 Range/Units 03:56 06:47 Sodium 136 L 137 (137-145) mmol/L Potassium 3.7 3.3 L (3.6-5.0) mmol/L Chloride 99.2 101.0 (98-107) mmol/L Carbon Dioxide 23 24 (22-30) mmol/L BUN 39 H 36 H (9-20) mg/dL Creatinine 1.2 1.0 (0.8-1.5) mg/dL Glucose 220 H 121 H (75-100) mg/dL Calcium 8.5 8.3 L (8.4-10.2) mg/dL - Imaging and Cardiology Echo: pending EKG: report reviewed, image reviewed EKG interpretations - Telemetry EKG Rhythm: Sinus Rhythm - EKG Sinus rhythms and dysrhythmias: sinus rhythm Assessment and Plan Pt noted to have minimally elevated troponins which are nonspecific at this t william, ECG with no acute ischemic changes. Cont to trend Maki and repeat ECG in AM. Initiate ASA and statin. Await echo. Pt also noted to have mild sinus tachycardia, likely physiologic. Can consider low dose BB if necessary for HR control if BPs permit. Further recs to follow per hospital course. The patient has been seen in conjunction with Dr. Cammy Montalvo who agrees with the assessment and plan of care. - Patient Problems (1) Diabetes mellitus with hyperglycemia Current Visit: Yes Status: Acute (2) HHNC (hyperglycemic hyperosmolar nonketotic coma) Current Visit: Yes Status: Suspected (3) Altered mental state Current Visit: Yes Status: Acute Qualifiers: Altered mental status type: unspecified Qualified Code(s): R41.82 - Altered mental status, unspecified (4) Slurred speech Current Visit: Yes Status: Acute (5) Elevated troponin I level Current Visit: Yes Status: Acute (6) Sinus tachycardia Current Visit: Yes Status: Acute (7) HTN (hypertension) Current Visit: Yes Status: Chronic Qualifiers: Hypertension type: essential hypertension Qualified Code(s): I10 - Essential (primary) hypertension (8) Physical deconditioning Current Visit: Yes Status: Chronic
[2019-01-12] MEDS: HEPARIN SUB-Q SCH ×2 (10:59→22:33)
--- NOTE | 2019-01-12 11:20 | Vascular Lab Report ---
BILATERAL CAROTID DOPPLER ULTRASOUND INDICATION : Stroke TECHNIQUE: Grayscale and color Doppler imaging performed through the neck. COMPARISON: None FINDINGS: Right: There is minimal soft plaque in the carotid bulb. Peak systolic velocity in the CCA is 86 cm /s with end-diastolic velocity of 12 cm/s. Peak systolic velocity in the proximal ICA is 51 cm/s with end-diastolic velocity of 12 cm/s. ICA to CCA ratio is less than 2. There is antegrade flow in the ECA and the vertebral artery. Left: There is minimal partially calcified plaque in the carotid bulb. Peak systolic velocity in the CCA is 88 cm/s with end-diastolic velocity of 18 cm/s. Peak systolic velocity in the proximal ICA is 59 cm/s with end-diastolic velocity of 19 cm/s. ICA to CCA ratio is less than 2. There is antegrade flow in the ECA and the vertebral artery. IMPRESSION: No hemodynamically significant stenosis by NASCET criteria. Signer Name: Cheo Steward Jr, MD Signed: 01/12/2019 11:15 AM Workstation Name: [id number]
[2019-01-12 12:40] LABS: Creatine Kinase MB < 1.0 ng/mL (0.0-4.0)
[2019-01-12] MEDS ORDERED: VANCOMYCIN 1,250 MG in NACL 0.9% 250ML 250 ML IV SCH (14:00)
--- NOTE | 2019-01-12 14:02 | Consultation ---
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 Slurred speech and weakness were noted. Patient seen and evaluated but outside of the safe window for TPA. Was found to be in diabetic ketoacidosis so started on insulin drip and admitted to the ICU. Currently being evaluated by neurology. No family present at bedside. Past History Past Medical History: diabetes, hypertension, other (? muscular dystrophy ) Past Surgical History: No surgical history Social history: Lives alone Family history: no significant family history Medications and Allergies Allergies Allergy/AdvReac Type Severity Reaction Status Date / Time codeine Allergy Shortness Verified 01/11/19 20:03 of Breath levofloxacin [From Levaquin] AdvReac Anaphylaxis Verified 01/11/19 20:03 Home Medications Medication Instructions Recorded Confirmed Last Taken Type Pregabalin [Lyrica] 300 mg PO BID 07/24/18 01/11/19 Unknown History Buprenorphine [Butrans] 1 each TD QWEEK MDD 1 01/11/19 01/11/19 01/08/19 History Insulin Glargine [Lantus VIAL] 40 units SQ QHS 01/11/19 01/11/19 Unknown History Lotensin Hct 20-12.5 mg Tablet 1 tab PO DAILY 01/11/19 01/11/19 Unknown History Active Meds: Active Medications Acetaminophen (Tylenol) 650 mg PO Q4H PRN PRN Reason: Fever >101 Aspirin (Baby Aspirin) 81 mg PO QDAY [facility] Atorvastatin Calcium (Lipitor) 20 mg PO QHS [facility] Dextrose (D50w (25gm) Syringe) 0 ml IV PRN PRN PRN Reason: Hypoglycemia Heparin Sodium (Porcine) (Heparin) 5,000 unit SUB-Q Q12HR [facility] Last Admin: 01/12/19 10:59 Dose: 5,000 unit Documented by: Insulin Human Regular 100 (units/ Sodium Chloride) 100 mls @ 1 mls/hr IV TITR [facility]; Protocol Stop: 01/12/19 15:00 Last Titration: 01/12/19 10:59 Dose: 1.5 units/hr, 1.5 mls/hr Documented by: Cefepime HCl (Maxipime/Ns 1 Gm/100 Ml) 1 gm in 100 mls @ 200 mls/hr IV Q8HR [facility]; Protocol Last Admin: 01/12/19 07:00 Dose: 200 mls/hr Documented by: Vancomycin HCl 1,250 mg/ (Sodium Chloride) 275 mls @ 183.333 mls/hr IV Q24H [facility] Potassium Chloride/Dextrose/Sod Cl (D5w/0.45% Nacl/Kcl 20 Meq) 20 meq in 1,000 mls @ 125 mls/hr IV DIRECT [facility] Stop: 01/12/19 23:59 Last Admin: 01/12/19 03:59 Dose: 125 mls/hr Documented by: Insulin Human Isoph/Insulin Regular (Humulin 70/30) 10 unit SUB-Q ONCE ONE Stop: 01/12/19 14:01 Insulin Human Isoph/Insulin Regular (Humulin 70/30) 10 unit SUB-Q ONCE ONE Stop: 01/12/19 22:01 Insulin Human Isoph/Insulin Regular (Humulin 70/30) 10 unit SUB-Q BIDDIAB [facility] Insulin Human Lispro (Humalog) 0 unit SUB-Q ACHS [facility]; Protocol Review of Systems All systems: negative Exam - Constitutional Vitals: Temp Pulse Resp BP Pulse Ox 99.7 F H 105 H 31 H 109/69 99 01/12/19 12:00 01/12/19 12:41 01/12/19 12:41 01/12/19 12:41 01/12/19 12:41 Results - Labs CBC & Chem 7: 01/11/19 20:33 01/12/19 06:47 Labs: Abnormal lab results 01/11/19 01/11/19 01/11/19 Range/Units 20:33 20:33 20:33 WBC 14.8 H (4.5-11.0) K/mm3 RDW 16.8 H (13.2-15.2) % Seg Neuts % (Manual) 77.0 H (40.0-70.0) % Seg Neutrophils # Man 11.4 H (1.8-7.7) K/mm3 Monocytes # (Manual) 0.9 H (0.0-0.8) K/mm3 PT 15.3 H (12.2-14.9) Sec. INR 1.24 H (0.87-1.13) APTT 22.4 L (24.2-36.6) Sec. Sodium 124 L (137-145) mmol/L Potassium (3.6-5.0) mmol/L Chloride 87.1 L (98-107) mmol/L Carbon Dioxide 20 L (22-30) mmol/L BUN 45 H (9-20) mg/dL Glucose 801 H* (75-100) mg/dL POC Glucose (70-105) Calcium 8.3 L (8.4-10.2) mg/dL Total Creatine Kinase (55-170) units/L CK-MB (CK-2) Rel Index (0-4) Troponin T 0.036 H (0.00-0.029) ng/mL Triglycerides 301 H (2-149) mg/dL HDL Cholesterol 25 L (40-59) mg/dL 01/11/19 01/11/19 01/11/19 Range/Units 22:02 23:00 23:02 WBC (4.5-11.0) K/mm3 RDW (13.2-15.2) % Seg Neuts % (Manual) (40.0-70.0) % Seg Neutrophils # Man (1.8-7.7) K/mm3 Monocytes # (Manual) (0.0-0.8) K/mm3 PT (12.2-14.9) Sec. INR (0.87-1.13) APTT (24.2-36.6) Sec. Sodium 128 L 133 L (137-145) mmol/L Potassium 3.5 L (3.6-5.0) mmol/L Chloride 91.8 L 95.1 L (98-107) mmol/L Carbon Dioxide 21 L (22-30) mmol/L BUN 44 H 43 H (9-20) mg/dL Glucose 718 H* 588 H* (75-100) mg/dL POC Glucose > 500 H (70-105) Calcium 8.0 L 7.8 L (8.4-10.2) mg/dL Total Creatine Kinase (55-170) units/L CK-MB (CK-2) Rel Index (0-4) Troponin T (0.00-0.029) ng/mL Triglycerides (2-149) mg/dL HDL Cholesterol (40-59) mg/dL 01/12/19 01/12/19 01/12/19 Range/Units 00:11 01:10 02:02 WBC (4.5-11.0) K/mm3 RDW (13.2-15.2) % Seg Neuts % (Manual) (40.0-70.0) % Seg Neutrophils # Man (1.8-7.7) K/mm3 Monocytes # (Manual) (0.0-0.8) K/mm3 PT (12.2-14.9) Sec. INR (0.87-1.13) APTT (24.2-36.6) Sec. Sodium (137-145) mmol/L Potassium (3.6-5.0) mmol/L Chloride (98-107) mmol/L Carbon Dioxide (22-30) mmol/L BUN (9-20) mg/dL Glucose (75-100) mg/dL POC Glucose 434 H 434 H 317 H (70-105) Calcium (8.4-10.2) mg/dL Total Creatine Kinase (55-170) units/L CK-MB (CK-2) Rel Index (0-4) Troponin T (0.00-0.029) ng/mL Triglycerides (2-149) mg/dL HDL Cholesterol (40-59) mg/dL 01/12/19 01/12/19 01/12/19 Range/Units 03:15 03:56 04:11 WBC (4.5-11.0) K/mm3 RDW (13.2-15.2) % Seg Neuts % (Manual) (40.0-70.0) % Seg Neutrophils # Man (1.8-7.7) K/mm3 Monocytes # (Manual) (0.0-0.8) K/mm3 PT (12.2-14.9) Sec. INR (0.87-1.13) APTT (24.2-36.6) Sec. Sodium 136 L (137-145) mmol/L Potassium (3.6-5.0) mmol/L Chloride (98-107) mmol/L Carbon Dioxide (22-30) mmol/L BUN 39 H (9-20) mg/dL Glucose 220 H (75-100) mg/dL POC Glucose 219 H 137 H (70-105) Calcium (8.4-10.2) mg/dL Total Creatine Kinase (55-170) units/L CK-MB (CK-2) Rel Index (0-4) Troponin T (0.00-0.029) ng/mL Triglycerides (2-149) mg/dL HDL Cholesterol (40-59) mg/dL 01/12/19 01/12/19 01/12/19 Range/Units 05:12 06:26 06:47 WBC (4.5-11.0) K/mm3 RDW (13.2-15.2) % Seg Neuts % (Manual) (40.0-70.0) % Seg Neutrophils # Man (1.8-7.7) K/mm3 Monocytes # (Manual) (0.0-0.8) K/mm3 PT (12.2-14.9) Sec. INR (0.87-1.13) APTT (24.2-36.6) Sec. Sodium (137-145) mmol/L Potassium 3.3 L (3.6-5.0) mmol/L Chloride (98-107) mmol/L Carbon Dioxide (22-30) mmol/L BUN 36 H (9-20) mg/dL Glucose 121 H (75-100) mg/dL POC Glucose 145 H 118 H (70-105) Calcium 8.3 L (8.4-10.2) mg/dL Total Creatine Kinase (55-170) units/L CK-MB (CK-2) Rel Index (0-4) Troponin T (0.00-0.029) ng/mL Triglycerides (2-149) mg/dL HDL Cholesterol (40-59) mg/dL 01/12/19 01/12/19 01/12/19 Range/Units 06:47 07:48 09:07 WBC (4.5-11.0) K/mm3 RDW (13.2-15.2) % Seg Neuts % (Manual) (40.0-70.0) % Seg Neutrophils # Man (1.8-7.7) K/mm3 Monocytes # (Manual) (0.0-0.8) K/mm3 PT (12.2-14.9) Sec. INR (0.87-1.13) APTT (24.2-36.6) Sec. Sodium (137-145) mmol/L Potassium (3.6-5.0) mmol/L Chloride (98-107) mmol/L Carbon Dioxide (22-30) mmol/L BUN (9-20) mg/dL Glucose (75-100) mg/dL POC Glucose 114 H 159 H (70-105) Calcium (8.4-10.2) mg/dL Total Creatine Kinase 27 L (55-170) units/L CK-MB (CK-2) Rel Index 4.4 H (0-4) Troponin T 0.031 H (0.00-0.029) ng/mL Triglycerides (2-149) mg/dL HDL Cholesterol (40-59) mg/dL 01/12/19 01/12/19 01/12/19 Range/Units 10:55 12:04 12:47 WBC (4.5-11.0) K/mm3 RDW (13.2-15.2) % Seg Neuts % (Manual) (40.0-70.0) % Seg Neutrophils # Man (1.8-7.7) K/mm3 Monocytes # (Manual) (0.0-0.8) K/mm3 PT (12.2-14.9) Sec. INR (0.87-1.13) APTT (24.2-36.6) Sec. Sodium (137-145) mmol/L Potassium (3.6-5.0) mmol/L Chloride (98-107) mmol/L Carbon Dioxide (22-30) mmol/L BUN (9-20) mg/dL Glucose (75-100) mg/dL POC Glucose 142 H 183 H (70-105) Calcium (8.4-10.2) mg/dL Total Creatine Kinase 33 L (55-170) units/L CK-MB (CK-2) Rel Index (0-4) Troponin T (0.00-0.029) ng/mL Triglycerides (2-149) mg/dL HDL Cholesterol (40-59) mg/dL - Imaging and Cardiology Chest x-ray: image reviewed (clear, no evidence of acute disease) Assessment and Plan 68 y/o male with known diabetes, admitted with weakness, concerned for CVA, and found to be in DKA. 1. Agree with Insulin drip, Anion Gap is closed. Will transition to long acting insulin. Pharmacy has just ordered this. Will likely need adjustments in long acting insulin. 2. Neurology evaluating now. Follow up on their recs. MRI is pending 3. Sinus tach, appears stable. Will look for other causes, would not treat with medication 4. From a critical care standpoint, stable for transfer out of unit. Will ask IMS to transfer. CCT 31minute
[2019-01-12 15:40] LABS: BUN/Creatinine Ratio 34; Blood Urea Nitrogen 31 mg/dL (9-20); Hemolysis Index 24
[2019-01-12] MEDS: HumaLOG SUB-Q SCH ×2 (17:26→22:33)
[2019-01-12 17:50] LABS: Alanine Aminotransferase 6 units/L (7-56)
--- NOTE | 2019-01-12 20:05 | Consultation ---
History of Present Illness Consult date: 01/12/19 Requesting physician: NOVA RODRIGUEZ Reason for Consult: slurred speech, flattened left nasolabial fold Chief complaint: slurred speech, flattened left nasolabial fold History of present illness: This 68-year-old right-handed white male was admitted for slurred speech with possible left nasal labial fold flattening. Sodium was noted to be 124 but is now 137. Glucose was as high as 801 and now is 121. LDL is 81. He denies headache but he states he has been having trouble saying words but not any difficulty thinking of the words. He has had recent pain in both arms but no chest pain and complains of feeling "worn out" or "tired". CT scan shows moderate to severe atrophy. Duplex of carotids was normal. Past medical history: Medical illnesses: Diabetes but no hypertension or stroke or [place]. Surgeries: None Social history: Negative for tobacco, alcohol or illicit drugs. Single, no children, never . 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 Family history: Negative for strokes, epilepsy, diabetes or hypertension. Review of systems: No headaches or dizziness, unknown if snoring, does nap or doze off at times. No memory problems. No paresthesias. General physical exam: General appearance: Well-developed but overweight (per BMI) late 60s white male, sleepy, with obvious purulent right foot. HEENT: Atraumatic, normocephalic, no bruits. Neck: Supple, no bruits. Heart: No murmur or extra sounds. Extremities: Edematous swollen and purulent right foot, scaling on both feet, no pulses palpable on either side but no pretibial edema. Neurologic exam: Mental status: Arouses to wake, alert, season is Spring but cannot give year even after 1999 as prompt, cannot give day of week, says he is at [employer]. Speech is clear. Cannot do 3 of 3 objects task, gives president after first name prompt but cannot give visitor services specialist. He cannot do serial sevens or even 5+7, echoing only the 7. Spells WORLD forwards correctly but cannot spell it backwards. Cannot do right-left task. Names comb but not its teeth and pen but not its point. Cranial nerves: Partial extinction superior nunez, no papilledema, left pupil greater than right and nonreactive on the left to light. Right pupil reacts to accommodation but not the left. EOMs full, sensory intact, no facial weakness, Rao is midline, gags are positive, poor shoulder shrug bilaterally with questionable effort, tongue protrudes in the midline. Cerebellar: Finger to nose dysmetric bilaterally especially left, cannot do heel to kelly since unable to move his legs enough. Sensory exam: Light touch diminished below the waist, pinprick diminished below the knees, vibration is absent in toes bilaterally, double simultaneous stimulation intact in arms but cannot do in lower extremities. Motor exam upper extremities: No drift or pronation, animal treatment investigator are 5 bilaterally, there is first DI atrophy on the right. Rapid alternating movements are slow bilaterally. Motor exam of lower extremities: Cannot lift legs off the bed that support. Iliopsoas are 5. Quadriceps with knees supported are 4 right and 4- left, and anterior tibials and gastrocnemius are 5- bilaterally. Rapid alternating movements are slow bilaterally. Reflexes: Jaw jerk is negative, palmomental is positive bilaterally, snout is slightly positive. Triceps, biceps and brachioradialis are trace bilaterally. Uyen's is negative bilaterally. Knee jerks and ankle jerks are 0 bilaterally even with reinforcement and without clonus. Toes are bilaterally downgoing to Babinski testing. Past History Past Medical History: diabetes, hypertension, other (? muscular dystrophy ) Past Surgical History: No surgical history Social history: Lives alone Family history: no significant family history Medications and Allergies Allergies Allergy/AdvReac Type Severity Reaction Status Date / Time codeine Allergy Shortness Verified 01/11/19 20:03 of Breath levofloxacin [From Levaquin] AdvReac Anaphylaxis Verified 01/11/19 20:03 Home Medications Medication Instructions Recorded Confirmed Last Taken Type Pregabalin [Lyrica] 300 mg PO BID 07/24/18 01/11/19 Unknown History Buprenorphine [Butrans] 1 each TD QWEEK MDD 1 01/11/19 01/11/19 01/08/19 History Insulin Glargine [Lantus VIAL] 40 units SQ QHS 01/11/19 01/11/19 Unknown History Lotensin Hct 20-12.5 mg Tablet 1 tab PO DAILY 01/11/19 01/11/19 Unknown History Active Meds: Active Medications Acetaminophen (Tylenol) 650 mg PO Q4H PRN PRN Reason: Fever >101 Aspirin (Baby Aspirin) 81 mg PO QDAY [facility] Atorvastatin Calcium (Lipitor) 20 mg PO QHS [facility] Dextrose (D50w (25gm) Syringe) 0 ml IV PRN PRN PRN Reason: Hypoglycemia Heparin Sodium (Porcine) (Heparin) 5,000 unit SUB-Q Q12HR [facility] Last Admin: 01/12/19 10:59 Dose: 5,000 unit Documented by: Cefepime HCl (Maxipime/Ns 1 Gm/100 Ml) 1 gm in 100 mls @ 200 mls/hr IV Q8HR [facility]; Protocol Last Admin: 01/12/19 14:27 Dose: 200 mls/hr Documented by: Vancomycin HCl 1,250 mg/ (Sodium Chloride) 275 mls @ 183.333 mls/hr IV Q24H [facility] Last Admin: 01/12/19 15:18 Dose: 183.333 mls/hr Documented by: Insulin Human Isoph/Insulin Regular (Humulin 70/30) 10 unit SUB-Q BIDDIAB [facility] Insulin Human Lispro (Humalog) 0 unit SUB-Q ACHS [facility]; Protocol Last Admin: 01/12/19 17:26 Dose: 4 unit Documented by: Physical Examination - Vital Signs Vital Signs: Vital Signs Pulse Resp 112 H 7 L 01/11/19 20:45 01/11/19 20:45 Results - Laboratory Findings CBC and BMP: 01/11/19 20:33 01/12/19 15:07 Abnormal Lab Findings: Abnormal Labs 01/11/19 01/11/19 01/11/19 20:33 20:33 20:33 WBC 14.8 H RDW 16.8 H Seg Neuts % (Manual) 77.0 H Seg Neutrophils # Man 11.4 H Monocytes # (Manual) 0.9 H PT 15.3 H INR 1.24 H APTT 22.4 L Sodium 124 L Potassium Chloride 87.1 L Carbon Dioxide 20 L BUN 45 H Glucose 801 H* POC Glucose Calcium 8.3 L ALT Total Creatine Kinase CK-MB (CK-2) Rel Index Troponin T 0.036 H Triglycerides 301 H HDL Cholesterol 25 L 01/11/19 01/11/19 01/11/19 22:02 23:00 23:02 WBC RDW Seg Neuts % (Manual) Seg Neutrophils # Man Monocytes # (Manual) PT INR APTT Sodium 128 L 133 L Potassium 3.5 L Chloride 91.8 L 95.1 L Carbon Dioxide 21 L BUN 44 H 43 H Glucose 718 H* 588 H* POC Glucose > 500 H Calcium 8.0 L 7.8 L ALT Total Creatine Kinase CK-MB (CK-2) Rel Index Troponin T Triglycerides HDL Cholesterol 01/12/19 01/12/19 01/12/19 00:11 01:10 02:02 WBC RDW Seg Neuts % (Manual) Seg Neutrophils # Man Monocytes # (Manual) PT INR APTT Sodium Potassium Chloride Carbon Dioxide BUN Glucose POC Glucose 434 H 434 H 317 H Calcium ALT Total Creatine Kinase CK-MB (CK-2) Rel Index Troponin T Triglycerides HDL Cholesterol 01/12/19 01/12/19 01/12/19 03:15 03:56 04:11 WBC RDW Seg Neuts % (Manual) Seg Neutrophils # Man Monocytes # (Manual) PT INR APTT Sodium 136 L Potassium Chloride Carbon Dioxide BUN 39 H Glucose 220 H POC Glucose 219 H 137 H Calcium ALT Total Creatine Kinase CK-MB (CK-2) Rel Index Troponin T Triglycerides HDL Cholesterol 01/12/19 01/12/19 01/12/19 05:12 06:26 06:47 WBC RDW Seg Neuts % (Manual) Seg Neutrophils # Man Monocytes # (Manual) PT INR APTT Sodium Potassium 3.3 L Chloride Carbon Dioxide BUN 36 H Glucose 121 H POC Glucose 145 H 118 H Calcium 8.3 L ALT Total Creatine Kinase CK-MB (CK-2) Rel Index Troponin T Triglycerides HDL Cholesterol 01/12/19 01/12/19 01/12/19 06:47 07:48 09:07 WBC RDW Seg Neuts % (Manual) Seg Neutrophils # Man Monocytes # (Manual) PT INR APTT Sodium Potassium Chloride Carbon Dioxide BUN Glucose POC Glucose 114 H 159 H Calcium ALT Total Creatine Kinase 27 L CK-MB (CK-2) Rel Index 4.4 H Troponin T 0.031 H Triglycerides HDL Cholesterol 01/12/19 01/12/19 01/12/19 10:55 12:04 12:47 WBC RDW Seg Neuts % (Manual) Seg Neutrophils # Man Monocytes # (Manual) PT INR APTT Sodium Potassium Chloride Carbon Dioxide BUN Glucose POC Glucose 142 H 183 H Calcium ALT Total Creatine Kinase 33 L CK-MB (CK-2) Rel Index Troponin T Triglycerides HDL Cholesterol 01/12/19 01/12/19 15:07 16:57 WBC RDW Seg Neuts % (Manual) Seg Neutrophils # Man Monocytes # (Manual) PT INR APTT Sodium 133 L Potassium Chloride Carbon Dioxide 19 L BUN 31 H Glucose 221 H POC Glucose Calcium 8.0 L ALT 6 L Total Creatine Kinase CK-MB (CK-2) Rel Index Troponin T Triglycerides HDL Cholesterol Assessment and Plan Impression: 1. Metabolic encephalopathy 2. Memory loss 3. Dysarthria 4. Peripheral neuropathy Plan: 1. Brain MRI already ordered. Will add spine MRIs given possible sensory level though more likely peripheral neuropathy pattern. 2. Memory labs and NH3 45 min critical care time spent. Thanks for an interesting consultation on this unfortunate late 60's male. Signing off, call if any unexpected MRI findings.
[2019-01-12 21:13] LABS: BUN/Creatinine Ratio 30; Blood Urea Nitrogen 24 mg/dL (9-20); Calcium 7.8 mg/dL (8.4-10.2); Hemolysis Index 30
--- NOTE | 2019-01-12 22:05 | XRay Report ---
BILATERAL FEET 4 VIEWS BILATERAL ANKLES 4 VIEWS INDICATION / CLINICAL INFORMATION: Cellulitis/swelling of bilateral feet and ankles. COMPARISON: None available. FINDINGS: BONES and JOINT(S): There is generalized osteopenia. No acute displaced fracture or dislocation is se en. Calcaneal enthesophytes are noted bilaterally with degenerative changes of the mid feet and foref eet. No suspicious destructive bony changes are seen. SOFT TISSUES: There is mild dorsal edema along the right midfoot. No additional acute soft tissue abn ormality. Moderate generalized atherosclerosis is noted. ADDITIONAL FINDINGS: None. IMPRESSION: 1. Mild edema of the right foot without an acute osseous abnormality. 2. Additional findings as above. Signer Name: Fam Smith MD Signed: 01/12/2019 10:00 PM Workstation Name: [id number]
[2019-01-13] MEDS: TYLENOL PO PRN ×3 (01:58→23:19)
[2019-01-13] MEDS: MAXIPIME/NS 1 GM/100 ML 1 GM/100 ML BAG IV SCH ×2 (05:53→13:52)
[2019-01-13 06:08] LABS: Hematocrit 32.7 % (35.5-45.6); Mean Corpuscular HGB Conc 34 % (32-34); Mean Corpuscular Volume 83 fl (84-94); Platelet Count 256 K/mm3 (140-440); Red Blood Count 3.92 M/mm3 (3.65-5.03); Red Cell Distribution Width 16.3 % (13.2-15.2)
[2019-01-13 06:29] LABS: Albumin 2.1 g/dL (3.9-5); BUN/Creatinine Ratio 25; Blood Urea Nitrogen 20 mg/dL (9-20); Calcium 7.8 mg/dL (8.4-10.2); Hemolysis Index 0
[2019-01-13 06:39] LABS: Alanine Aminotransferase < 5 units/L (7-56)
[2019-01-13] MEDS: HumaLOG SUB-Q SCH ×3 (07:40→16:46)
--- NOTE | 2019-01-13 07:48 | Progress Note ---
Assessment and Plan Assessment and plan: --Possible acute CVA;slurred speech and left-sided weakness not a candidate for TPA Continue aspirin and statin ,Neuro workup is in progress, Patient refused MRI studies recommended by neurology --Hyperosmolar nonketotic hyperglycemia; On insulin drip, blood sugars reasonably controlled Start ADA diet, DC insulin drip, start long-acting 7030 insulin July 2018 HbA1c is 10.0, diabetic education, nutrition and education --Insulin-dependent diabetes mellitus; Uncontrolled blood sugars, secondary to noncompliance Accu-Chek sliding scale coverage, long-acting insulin increased to 20 units 7030 Novolin twice a day --Bilateral ankle and foot cellulitis/diabetic foot infection Continue wound care, IV antibiotics, follow cultures, elevated bili and Vascular/surgery consulted, Foot x-rays; no evidence of osteomyelitis --Peripheral Vascular disease: On antiplatelets and statins Vascular following --Non-ST elevation IA; nonspecific elevation of cardiac enzymes Continue current cardiac medications, follow echocardiogram, cardiology consult --Hyponatremia; present on admission, resolved probably pseudohyponatremia, Secondary to hyperglycemia, --History of hypertension; blood pressures well controlled Continue current management, PRN hydralazine --Dyslipidemia; Statin --DVT prophylaxis; Lovenox --Full code; Consults and recommendations noted and appreciated Monitor closely and adjust the management as needed Plan of care reviewed with the patient caregiver at the bedside as well as his nurse I also discussed with neurologist History Interval history: Patient seen and examined this morning ,medical records reviewed Patient is very upset that he was not given food. Refused MRI studies ordered by neurologist Alert and awake Vital signs reviewed Hospitalist Physical - Constitutional Vitals: Temp Pulse Resp BP Pulse Ox 100.2 F H 97 H 18 107/65 95 01/13/19 01:49 01/13/19 01:49 01/13/19 01:49 01/13/19 01:49 01/13/19 01:49 General appearance: Present: no acute distress, well-nourished, other (lateral awake) - EENT Eyes: Present: PERRL, EOM intact - Neck Neck: Present: supple, normal ROM - Respiratory Respiratory effort: normal Respiratory: bilateral: diminished, negative: rales, rhonchi, wheezing - Cardiovascular Rhythm: regular Heart Sounds: Present: S1 & S2 - Extremities Extremities: no ischemia, abnormal (chronic infection with bilateral feet, dres sing in place) Extremity abnormal: edema - Abdominal General gastrointestinal: soft, non-tender, non-distended, normal bowel sounds - Integumentary Integumentary: Present: clear, warm - Psychiatric Psychiatric: appropriate mood/affect, cooperative - Neurologic Neurologic: moves all extremities, other (residual weakness) Results - Labs CBC & Chem 7: 01/13/19 05:46 01/13/19 05:46 Labs: Laboratory Last Values WBC 8.3 K/mm3 (4.5-11.0) 01/13/19 05:46 RBC 3.92 M/mm3 (3.65-5.03) 01/13/19 05:46 Hgb 11.0 gm/dl (11.8-15.2) L 01/13/19 05:46 Hct 32.7 % (35.5-45.6) L D 01/13/19 05:46 MCV 83 fl (84-94) L 01/13/19 05:46 MCH 28 pg (28-32) 01/13/19 05:46 MCHC 34 % (32-34) 01/13/19 05:46 RDW 16.3 % (13.2-15.2) H 01/13/19 05:46 Plt Count 256 K/mm3 (140-440) 01/13/19 05:46 Add Manual Diff Complete 01/11/19 20:33 Total Counted 100 01/11/19 20:33 Seg Neuts % (Manual) 77.0 % (40.0-70.0) H 01/11/19 20:33 1.0 % 01/11/19 20:33 16.0 % (13.4-35.0) 01/11/19 20:33 Reactive Lymphs % (Man) 0 % 01/11/19 20:33 6.0 % (0.0-7.3) 01/11/19 20:33 0 % (0.0-4.3) 01/11/19 20:33 0 % (0.0-1.8) 01/11/19 20:33 0 % 01/11/19 20:33 0 % 01/11/19 20:33 0 % 01/11/19 20:33 0 % 01/11/19 20:33 Nucleated RBC % Not Reportable 01/11/19 20:33 Seg Neutrophils # Man 11.4 K/mm3 (1.8-7.7) H 01/11/19 20:33 Band Neutrophils # 0.1 K/mm3 01/11/19 20:33 2.4 K/mm3 (1.2-5.4) 01/11/19 20:33 Abs React Lymphs (Man) 0.0 K/mm3 01/11/19 20:33 0.9 K/mm3 (0.0-0.8) H 01/11/19 20:33 0.0 K/mm3 (0.0-0.4) 01/11/19 20:33 0.0 K/mm3 (0.0-0.1) 01/11/19 20:33 0.0 K/mm3 01/11/19 20:33 0.0 K/mm3 01/11/19 20:33 0.0 K/mm3 01/11/19 20:33 Blast Cells # 0.0 K/mm3 01/11/19 20:33 WBC Morphology Not Reportable 01/11/19 20:33 Hypersegmented Neuts Not Reportable 01/11/19 20:33 Hyposegmented Neuts Not Reportable 01/11/19 20:33 Hypogranular Neuts Not Reportable 01/11/19 20:33 Not Reportable 01/11/19 20:33 Not Reportable 01/11/19 20:33 Not Reportable 01/11/19 20:33 Not Reportable 01/11/19 20:33 Not Reportable 01/11/19 20:33 Not Reportable 01/11/19 20:33 Consistent w auto 01/11/19 20:33 Not Reportable 01/11/19 20:33 Plt Clumps, EDTA Not Reportable 01/11/19 20:33 Not Reportable 01/11/19 20:33 Not Reportable 01/11/19 20:33 Not Reportable 01/11/19 20:33 Plt Morphology Comment Not Reportable 01/11/19 20:33 RBC Morphology Not Reportable 01/11/19 20:33 Dimorphic RBCs Not Reportable 01/11/19 20:33 Not Reportable 01/11/19 20:33 Not Reportable 01/11/19 20:33 Not Reportable 01/11/19 20:33 1+ 01/11/19 20:33 Not Reportable 01/11/19 20:33 Not Reportable 01/11/19 20:33 Not Reportable 01/11/19 20:33 Not Reportable 01/11/19 20:33 Not Reportable 01/11/19 20:33 Not Reportable 01/11/19 20:33 Not Reportable 01/11/19 20:33 Not Reportable 01/11/19 20:33 Not Reportable 01/11/19 20:33 Not Reportable 01/11/19 20:33 Not Reportable 01/11/19 20:33 Not Reportable 01/11/19 20:33 Not Reportable 01/11/19 20:33 Not Reportable 01/11/19 20:33 Not Reportable 01/11/19 20:33 Acanthocytes (Spur) Not Reportable 01/11/19 20:33 Rouleaux Not Reportable 01/11/19 20:33 Not Reportable 01/11/19 20:33 Not Reportable 01/11/19 20:33 Not Reportable 01/11/19 20:33 Not Reportable 01/11/19 20:33 Hem Pathologist Commnt No 01/11/19 20:33 PT 15.3 Sec. (12.2-14.9) H 01/11/19 20:33 INR 1.24 (0.87-1.13) H 01/11/19 20:33 APTT 22.4 Sec. (24.2-36.6) L 01/11/19 20:33 17.8 Sec. (15.1-19.6) 01/11/19 20:33 VBG pH 7.401 (7.320-7.420) 01/11/19 22:02 Sodium 136 mmol/L (137-145) L 01/13/19 05:46 Potassium 3.6 mmol/L (3.6-5.0) 01/13/19 05:46 Chloride 105.7 mmol/L (98-107) 01/13/19 05:46 Carbon Dioxide 19 mmol/L (22-30) L 01/13/19 05:46 15 mmol/L 01/13/19 05:46 BUN 20 mg/dL (9-20) 01/13/19 05:46 0.8 mg/dL (0.8-1.5) 01/13/19 05:46 Estimated GFR > 60 ml/min 01/13/19 05:46 25 % 01/13/19 05:46 Glucose 298 mg/dL (75-100) H 01/13/19 05:46 POC Glucose 359 (70-105) H 01/13/19 07:12 Lactic Acid 1.80 mmol/L (0.7-2.0) 01/11/19 22:02 Calcium 7.8 mg/dL (8.4-10.2) L 01/13/19 05:46 Phosphorus 3.40 mg/dL (2.5-4.5) 01/11/19 20:33 Magnesium 1.80 mg/dL (1.7-2.3) 01/13/19 05:46 0.30 mg/dL (0.1-1.2) 01/13/19 05:46 AST 6 units/L (5-40) 01/13/19 05:46 ALT < 5 units/L (7-56) L 01/13/19 05:46 77 units/L (35-129) 01/13/19 05:46 34.0 umol/L (25-60) 01/12/19 16:57 33 units/L (55-170) L 01/12/19 12:04 CK-MB (CK-2) < 1.0 ng/mL (0.0-4.0) 01/12/19 12:04 CK-MB (CK-2) Rel Index 3.0 (0-4) 01/12/19 12:04 0.012 ng/mL (0.00-0.029) 01/12/19 12:04 5.5 g/dL (6.3-8.2) L 01/13/19 05:46 2.1 g/dL (3.9-5) L 01/13/19 05:46 0.6 % 01/13/19 05:46 Triglycerides 301 mg/dL (2-149) H 01/11/19 20:33 Cholesterol 137 mg/dL (50-199) 01/11/19 20:33 85 mg/dL (50-130) 01/11/19 20:33 25 mg/dL (40-59) L 01/11/19 20:33 5.48 % 01/11/19 20:33 Vitamin B12 357.4 pg/mL (211-911) 01/12/19 16:57 7.96 ng/mL (7.3-26.0) 01/12/19 16:57 TSH 1.160 mlU/mL (0.270-4.200) 01/12/19 16:57 Free T4 0.98 ng/dL (0.76-1.46) 01/12/19 16:57 Active Medications - Current Medications Current Medications: Generic Name Dose Route Start Last Admin Trade Name Freq PRN Reason Stop Dose Admin Acetaminophen 650 mg 01/12/19 00:10 01/13/19 01:58 Tylenol PO 650 mg Q4H PRN Administration Fever >101 Aspirin 81 mg 01/13/19 10:00 Baby Aspirin PO QDAY MOOSE Atorvastatin Calcium 20 mg 01/12/19 22:00 01/12/19 22:33 Lipitor PO 20 mg QHS MOOSE Administration Dextrose 0 ml 01/11/19 21:19 D50w (25gm) Syringe IV PRN PRN Hypoglycemia Heparin Sodium (Porcine) 5,000 unit 01/12/19 10:00 01/12/19 22:33 Heparin SUB-Q 5,000 unit Q12HR MOOSE Administration Cefepime HCl 1 gm in 100 mls @ 200 mls/hr 01/12/19 06:00 01/13/19 05:53 Maxipime/Ns 1 Gm/100 Ml IV 200 mls/hr Q8HR MOOSE Administration Protocol Vancomycin HCl 1,250 mg/ 275 mls @ 183.333 mls/hr 01/12/19 14:00 01/12/19 15 :18 Sodium Chloride IV 183.333 mls/hr Q24H MOOSE Administration Insulin Human Isoph/Insulin Regular 20 unit 01/13/19 08:00 Humulin 70/30 SUB-Q BIDDIAB MOOSE Insulin Human Lispro 0 unit 01/12/19 16:30 01/13/19 07:40 Humalog SUB-Q 8 unit ACHS MOOSE Administration Protocol Nutrition/Malnutrition Assess - Dietary Evaluation Nutrition/Malnutrition Findings: Nutrition Notes Start: 01/12/19 10:44 Freq: Status: Active Protocol: Document 01/12/19 10:44 LP (Rec: 01/12/19 10:56 LP [email or web address]) Nutrition Notes Need for Assessment generated from: sprinkler tender Initial or Follow up Assessment Current Diagnosis Decubitus(Pressure Ulcer), Diabetes,Hypertension Other Pertinent Diagnosis cellulitis, DKA, DM foot wound , AMS Current Diet NPO Labs/Tests K 3.3 Pertinent Medications Insulin Drip KCL Height 5 ft 10 in Weight 87.4 kg [place] Body Weight (kg) 75.45 BMI 27.6 Subjective/Other Information Screen for MST and skin risk. Pt has foot wound. Pt with AMS and unable to talk to, no family at bedside. Burn Absent Trauma Absent #1 Nutrition Diagnosis Increased nutrient needs ( specify in comment below) Comments: protein Etiology Wound healing As Evidenced by Signs and Symptoms Pt with infected foot wound Is patient on ventilator? No Is Patient Ambulatory and/or Out of Bed No REE-([facility]-confined to bed) Calculation Used for Recommendations [facility] Additional Notes Protein needs are 87-105g (1-1 .2g/kg) Fluid needs are 1ml/kcal Nutrition Intervention Change Diet Order: Advance diet to cardiac/ consistent CHO Add Supplement/Snack (indicate name/kcal Darryl BID /protein ) Provides kCal: 190 Provides Protein (gm) 5 Goal #1 Meet at least 80% of kcal and protein needs Goal #2 Wound healing Anticipated Discharge Needs: Cardiac/consistent CHO with ONS as needed Follow-Up By: 01/16/19 Additional Comments Follow for assessment needs, intakes
[2019-01-13 09:26] LABS: Band Neutrophils # (Manual) 0.2 K/mm3; Basophils % (Manual) 0 % (0.0-1.8); Total Cells Counted 100
[2019-01-13 09:27] LABS: Platelet Estimate Consistent w Auto; RBC Morphology Normal
[2019-01-13] MEDS: HEPARIN SUB-Q SCH ×2 (10:10→23:06)
[2019-01-13] MEDS: BABY ASPIRIN PO SCH (10:12)
[2019-01-13] MEDS: VANCOMYCIN/NS 1 GM/250 ML 1 GM/250 ML BAG IV SCH ×2 (10:13→23:10)
--- NOTE | 2019-01-13 12:14 | Progress Note ---
Assessment and Plan Echo reviewed - EF 40-45%, impaired relaxation. Minimally elevated troponins appear nonspecific at this time. Cont ASA and statin, initiate BB in setting of mild LV dysfunction. No apparent clinical evidence of acutely decompensated HF at this time. Can consider stress test as OP once medically stable to r/o ischemic CMP. Currently stable cardiac status. Nothing further to add from cardiac perspective at this time. Will sign off. Recommend follow up in our office with Dr. Cammy Montalvo within 1-2 weeks of hospital discharge ([phone]). The patient has been seen in conjunction with Dr. Cammy Montalvo who agrees with the assessment and plan of care. - Patient Problems (1) Diabetes mellitus with hyperglycemia Current Visit: Yes Status: Acute (2) HHNC (hyperglycemic hyperosmolar nonketotic coma) Current Visit: Yes Status: Suspected (3) Altered mental state Current Visit: Yes Status: Acute Qualifiers: Altered mental status type: unspecified Qualified Code(s): R41.82 - Altered mental status, unspecified (4) Slurred speech Current Visit: Yes Status: Acute (5) Elevated troponin I level Current Visit: Yes Status: Acute (6) Cardiomyopathy Current Visit: Yes Status: Chronic (7) Sinus tachycardia Current Visit: Yes Status: Acute (8) HTN (hypertension) Current Visit: Yes Status: Chronic Qualifiers: Hypertension type: essential hypertension Qualified Code(s): I10 - Essential (primary) hypertension (9) Physical deconditioning Current Visit: Yes Status: Chronic Subjective Date of service: 01/13/19 Principal diagnosis: HHNK Interval history: pt resting in bed, states he is feeling better, appears more alert. fever noted overnight. Objective Last Vital Signs Temp 98.2 F 01/13/19 07:05 Pulse 87 01/13/19 08:00 Resp 20 01/13/19 08:00 BP 133/74 01/13/19 07:05 Pulse Ox 96 01/13/19 08:00 - Physical Examination General: No Apparent Distress HEENT: Positive: PERRL, Normocephaly, Mucus Membranes Moist Neck: Positive: neck supple, trachea midline Cardiac: Positive: Reg Rate and Rhythm, S1/S2 Lungs: Positive: Decreased Breath Sounds Neuro: Positive: Grossly Intact Abdomen: Negative: Tender Skin: Negative: Rash Extremities: Absent: edema - Labs and Meds Cardiac Enzymes 01/12/19 01/12/19 01/13/19 Range/Units 12:04 16:57 05:46 AST 7 6 (5-40) units/L CK-MB (CK-2) < 1.0 (0.0-4.0) ng/mL CBC 01/13/19 Range/Units 05:46 WBC 8.3 (4.5-11.0) K/mm3 RBC 3.92 (3.65-5.03) M/mm3 Hgb 11.0 L (11.8-15.2) gm/dl Hct 32.7 L D (35.5-45.6) % Plt Count 256 (140-440) K/mm3 Comprehensive Metabolic Panel 01/12/19 01/12/19 01/12/19 Range/Units 15:07 16:57 20:43 Sodium 133 L 132 L (137-145) mmol/L Potassium 3.8 3.9 (3.6-5.0) mmol/L Chloride 100.8 101.2 (98-107) mmol/L Carbon Dioxide 19 L 21 L (22-30) mmol/L BUN 31 H 24 H (9-20) mg/dL Creatinine 0.9 0.8 (0.8-1.5) mg/dL Glucose 221 H 336 H (75-100) mg/dL Calcium 8.0 L 7.8 L (8.4-10.2) mg/dL AST 7 (5-40) units/L ALT 6 L (7-56) units/L Alkaline Phosphatase (35-129) units/L Total Protein (6.3-8.2) g/dL Albumin (3.9-5) g/dL 01/13/19 Range/Units 05:46 Sodium 136 L (137-145) mmol/L Potassium 3.6 (3.6-5.0) mmol/L Chloride 105.7 (98-107) mmol/L Carbon Dioxide 19 L (22-30) mmol/L BUN 20 (9-20) mg/dL Creatinine 0.8 (0.8-1.5) mg/dL Glucose 298 H (75-100) mg/dL Calcium 7.8 L (8.4-10.2) mg/dL AST 6 (5-40) units/L ALT < 5 L (7-56) units/L Alkaline Phosphatase 77 (35-129) units/L Total Protein 5.5 L (6.3-8.2) g/dL Albumin 2.1 L (3.9-5) g/dL - Imaging and Cardiology EKG: report reviewed, image reviewed Echo: pending - EKG Sinus rhythms and dysrhythmias: sinus rhythm
--- NOTE | 2019-01-13 12:47 | Consultation ---
History of Present Illness Consult date: 01/13/19 Chief complaint: foot wound - History of present illness History of present illness: 68 yo M with hx of DM, foot wounds presented to ER with caregiver due to slurred speech and difficulty moving. The patient is ambulatory with assistance. Patient is a 68-year-old male that presents emergency with complaints of altered mental status and slurred speech. The patient also had redness of right foot and wound care was ordered. He was seen by paraffin plant sweater operator who recommended surgical and vascular consult. Per the patient and caregiver, the patient previously had a wound on the plantar aspect of the left foot for which he was being seen at [facility] last year. The wound did heal. Patient does not remember trauma to the foot. He wears sneakers to walk. He states he only has pressure sensation in the feet and does not feel sharp objects. Past History Past Medical History: diabetes, hypertension, other (? muscular dystrophy ) Past Surgical History: No surgical history Social history: Lives alone Family history: no significant family history Medications and Allergies Allergies Allergy/AdvReac Type Severity Reaction Status Date / Time codeine Allergy Shortness Verified 01/11/19 20:03 of Breath levofloxacin [From Levaquin] AdvReac Anaphylaxis Verified 01/11/19 20:03 Home Medications Medication Instructions Recorded Confirmed Last Taken Type Pregabalin [Lyrica] 300 mg PO BID 07/24/18 01/11/19 Unknown History Buprenorphine [Butrans] 1 each TD QWEEK MDD 1 01/11/19 01/11/19 01/08/19 History Insulin Glargine [Lantus VIAL] 40 units SQ QHS 01/11/19 01/11/19 Unknown History Lotensin Hct 20-12.5 mg Tablet 1 tab PO DAILY 01/11/19 01/11/19 Unknown History Active Meds: Active Medications Acetaminophen (Tylenol) 650 mg PO Q4H PRN PRN Reason: Fever >101 Last Admin: 01/13/19 01:58 Dose: 650 mg Documented by: Aspirin (Baby Aspirin) 81 mg PO QDAY [facility] Last Admin: 01/13/19 10:12 Dose: 81 mg Documented by: Atorvastatin Calcium (Lipitor) 20 mg PO QHS [facility] Last Admin: 01/12/19 22:33 Dose: 20 mg Documented by: Dextrose (D50w (25gm) Syringe) 0 ml IV PRN PRN PRN Reason: Hypoglycemia Heparin Sodium (Porcine) (Heparin) 5,000 unit SUB-Q Q12HR [facility] Last Admin: 01/13/19 10:10 Dose: 5,000 unit Documented by: Cefepime HCl (Maxipime/Ns 1 Gm/100 Ml) 1 gm in 100 mls @ 200 mls/hr IV Q8HR MOOSE; Protocol Last Admin: 01/13/19 05:53 Dose: 200 mls/hr Documented by: Vancomycin HCl (Vancomycin/Ns 1 Gm/250 Ml) 1 gm in 250 mls @ 166.667 mls/hr IV Q12HR MOOSE Last Admin: 01/13/19 10:13 Dose: 166.667 mls/hr Documented by: Insulin Human Isoph/Insulin Regular (Humulin 70/30) 20 unit SUB-Q BIDDIAB MOOSE Insulin Human Lispro (Humalog) 0 unit SUB-Q ACHS MOOSE; Protocol Last Admin: 01/13/19 11:53 Dose: 3 unit Documented by: Metoprolol Tartrate (Lopressor) 25 mg PO BID [facility] Review of Systems All systems: negative (10 pt ROS performed and negative except for that listed in HPI) Exam Vital Signs Pulse Resp 112 H 7 L 01/11/19 20:45 01/11/19 20:45 Narrative exam: Gen; AAOx3. NAD CV; s1, s2+ resp; even and unlabored Ext: LE warm with dry skin. L foot with small wound on plantar aspect of great toe with surrounding callus. No drainage. Red base. Some blanching erythema of medial aspect of great toe. No induration or fluctuance. Alginate applied to wound, covered with 4x4 gauze and wrapped with kerlex. R foot with edema, erythema. There is a wound on the lateral aspect of the great toe (in between toes) that can be probed and tunnels to approximately 2.5 cm. Some necrotic skin present which was easily wiped away with gauze. The dorsal aspect of the foot has blisters which drained pus and serosanguenous fluid. 2 openings presents which were probed with a cotton tip applicator. Superficial and connected. All purulent fluid expressed. All open wounds covered with alginate, 4x4 gauze, and foot wrapped with kerlex. Patient has no sharp/dull discrimination. Results - Labs 01/13/19 05:46 01/13/19 05:46 Abnormal lab results 01/12/19 01/12/19 01/12/19 Range/Units 12:04 12:47 15:07 Hgb (11.8-15.2) gm/dl Hct (35.5-45.6) % MCV (84-94) fl RDW (13.2-15.2) % Seg Neuts % (Manual) (40.0-70.0) % Lymphocytes % (Manual) (13.4-35.0) % Lymphocytes # (Manual) (1.2-5.4) K/mm3 Sodium 133 L (137-145) mmol/L Carbon Dioxide 19 L (22-30) mmol/L BUN 31 H (9-20) mg/dL Glucose 221 H (75-100) mg/dL POC Glucose 183 H (70-105) Calcium 8.0 L (8.4-10.2) mg/dL ALT (7-56) units/L Total Creatine Kinase 33 L (55-170) units/L Total Protein (6.3-8.2) g/dL Albumin (3.9-5) g/dL 01/12/19 01/12/19 01/12/19 Range/Units 15:55 16:57 17:15 Hgb (11.8-15.2) gm/dl Hct (35.5-45.6) % MCV (84-94) fl RDW (13.2-15.2) % Seg Neuts % (Manual) (40.0-70.0) % Lymphocytes % (Manual) (13.4-35.0) % Lymphocytes # (Manual) (1.2-5.4) K/mm3 Sodium (137-145) mmol/L Carbon Dioxide (22-30) mmol/L BUN (9-20) mg/dL Glucose (75-100) mg/dL POC Glucose 305 H 266 H (70-105) Calcium (8.4-10.2) mg/dL ALT 6 L (7-56) units/L Total Creatine Kinase (55-170) units/L Total Protein (6.3-8.2) g/dL Albumin (3.9-5) g/dL 01/12/19 01/12/1919 Range/Units 20:43 21:14 05:46 Hgb (11.8-15.2) gm/dl Hct (35.5-45.6) % MCV (84-94) fl RDW (13.2-15.2) % Seg Neuts % (Manual) (40.0-70.0) % Lymphocytes % (Manual) (13.4-35.0) % Lymphocytes # (Manual) (1.2-5.4) K/mm3 Sodium 132 L 136 L (137-145) mmol/L Carbon Dioxide 21 L 19 L (22-30) mmol/L BUN 24 H (9-20) mg/dL Glucose 336 H 298 H (75-100) mg/dL POC Glucose 350 H (70-105) Calcium 7.8 L 7.8 L (8.4-10.2) mg/dL ALT < 5 L (7-56) units/L Total Creatine Kinase (55-170) units/L Total Protein 5.5 L (6.3-8.2) g/dL Albumin 2.1 L (3.9-5) g/dL 01/13/19 01/13/19 01/13/19 Range/Units 05:46 07:12 11:39 Hgb 11.0 L (11.8-15.2) gm/dl Hct 32.7 L D (35.5-45.6) % MCV 83 L (84-94) fl RDW 16.3 H (13.2-15.2) % Seg Neuts % (Manual) 91.0 H (40.0-70.0) % Lymphocytes % (Manual) 3.0 L (13.4-35.0) % Lymphocytes # (Manual) 0.2 L (1.2-5.4) K/mm3 Sodium (137-145) mmol/L Carbon Dioxide (22-30) mmol/L BUN (9-20) mg/dL Glucose (75-100) mg/dL POC Glucose 359 H 236 H (70-105) Calcium (8.4-10.2) mg/dL ALT (7-56) units/L Total Creatine Kinase (55-170) units/L Total Protein (6.3-8.2) g/dL Albumin (3.9-5) g/dL Diabetes panel 01/12/19 01/12/19 01/12/19 Range/Units 15:07 16:57 20:43 Sodium 133 L 132 L (137-145) mmol/L Potassium 3.8 3.9 (3.6-5.0) mmol/L Chloride 100.8 101.2 (98-107) mmol/L Carbon Dioxide 19 L 21 L (22-30) mmol/L BUN 31 H 24 H (9-20) mg/dL Creatinine 0.9 0.8 (0.8-1.5) mg/dL Glucose 221 H 336 H (75-100) mg/dL Calcium 8.0 L 7.8 L (8.4-10.2) mg/dL AST 7 (5-40) units/L ALT 6 L (7-56) units/L Alkaline Phosphatase (35-129) units/L Total Protein (6.3-8.2) g/dL Albumin (3.9-5) g/dL 01/13/19 Range/Units 05:46 Sodium 136 L (137-145) mmol/L Potassium 3.6 (3.6-5.0) mmol/L Chloride 105.7 (98-107) mmol/L Carbon Dioxide 19 L (22-30) mmol/L BUN 20 (9-20) mg/dL Creatinine 0.8 (0.8-1.5) mg/dL Glucose 298 H (75-100) mg/dL Calcium 7.8 L (8.4-10.2) mg/dL AST 6 (5-40) units/L ALT < 5 L (7-56) units/L Alkaline Phosphatase 77 (35-129) units/L Total Protein 5.5 L (6.3-8.2) g/dL Albumin 2.1 L (3.9-5) g/dL Thyroid panel 01/12/19 Range/Units 16:57 TSH 1.160 (0.270-4.200) mlU/mL Calcium panel 01/12/19 01/12/19 01/13/19 Range/Units 15:07 20:43 05:46 Calcium 8.0 L 7.8 L 7.8 L (8.4-10.2) mg/dL Albumin 2.1 L (3.9-5) g/dL Pituitary panel 01/12/19 01/12/19 01/12/19 Range/Units 15:07 16:57 20:43 Sodium 133 L 132 L (137-145) mmol/L Potassium 3.8 3.9 (3.6-5.0) mmol/L Chloride 100.8 101.2 (98-107) mmol/L Carbon Dioxide 19 L 21 L (22-30) mmol/L BUN 31 H 24 H (9-20) mg/dL Creatinine 0.9 0.8 (0.8-1.5) mg/dL Glucose 221 H 336 H (75-100) mg/dL Calcium 8.0 L 7.8 L (8.4-10.2) mg/dL TSH 1.160 (0.270-4.200) mlU/mL 01/13/19 Range/Units 05:46 Sodium 136 L (137-145) mmol/L Potassium 3.6 (3.6-5.0) mmol/L Chloride 105.7 (98-107) mmol/L Carbon Dioxide 19 L (22-30) mmol/L BUN 20 (9-20) mg/dL Creatinine 0.8 (0.8-1.5) mg/dL Glucose 298 H (75-100) mg/dL Calcium 7.8 L (8.4-10.2) mg/dL TSH (0.270-4.200) mlU/mL Adrenal panel 01/12/19 01/12/19 01/12/19 Range/Units 15:07 16:57 20:43 Sodium 133 L 132 L (137-145) mmol/L Potassium 3.8 3.9 (3.6-5.0) mmol/L Chloride 100.8 101.2 (98-107) mmol/L Carbon Dioxide 19 L 21 L (22-30) mmol/L BUN 31 H 24 H (9-20) mg/dL Creatinine 0.9 0.8 (0.8-1.5) mg/dL Glucose 221 H 336 H (75-100) mg/dL Calcium 8.0 L 7.8 L (8.4-10.2) mg/dL Total Bilirubin (0.1-1.2) mg/dL AST 7 (5-40) units/L ALT 6 L (7-56) units/L Alkaline Phosphatase (35-129) units/L Total Protein (6.3-8.2) g/dL Albumin (3.9-5) g/dL 01/13/19 Range/Units 05:46 Sodium 136 L (137-145) mmol/L Potassium 3.6 (3.6-5.0) mmol/L Chloride 105.7 (98-107) mmol/L Carbon Dioxide 19 L (22-30) mmol/L BUN 20 (9-20) mg/dL Creatinine 0.8 (0.8-1.5) mg/dL Glucose 298 H (75-100) mg/dL Calcium 7.8 L (8.4-10.2) mg/dL Total Bilirubin 0.30 (0.1-1.2) mg/dL AST 6 (5-40) units/L ALT < 5 L (7-56) units/L Alkaline Phosphatase 77 (35-129) units/L Total Protein 5.5 L (6.3-8.2) g/dL Albumin 2.1 L (3.9-5) g/dL - Imaging Additional studies: R foot xray Assessment and Plan 68 yo M with 1. cellulitis, infection of right foot 2. wound of right great toe 3. chronic wound of left great toe 4. DM 5. PVD Plan: 1. continue IV abx 2. right toe wound culture obtained - will follow up 3. continue wound care per orders 4. A&D ointment to both legs 5. offloading 6. optimize nutrition, obtain prealbumin 7. vascular consulted, arterial duplex obtained - pending official read 8. no urgent need for surgical debridement Patient will need follow up in wound care center upon dc Thank you, please call with questions
--- NOTE | 2019-01-13 13:38 | Progress Note ---
Subjective Date of service: 01/13/19 Principal diagnosis: paraparesis, dysarthria Interval history: Refused MRI after starting it. Nurse says brother who is a PA tried to convince to have it, to no avail. Dr. Najera asked me to speak to patient about it. Spoke to him, denies claustrophobia just does not want more tests. Says he would not agree even to a CT of spine. Will update Dr. Najera. Objective - Vital Sign Vital Signs - 12hr 01/13/19 01/13/19 01/13/19 01:49 07:05 08:00 Temperature 100.2 F H 98.2 F Pulse Rate 97 H 87 Pulse Rate [ 87 Apical] Respiratory 18 20 20 Rate Blood Pressure 107/65 133/74 O2 Sat by Pulse 95 96 96 Oximetry - Laboratory Findings CBC and BMP: 01/13/19 05:46 01/13/19 05:46 Abnormal Lab Findings: Abnormal Labs 01/11/19 01/11/19 01/11/19 20:33 20:33 20:33 WBC 14.8 H Hgb Hct MCV RDW 16.8 H Seg Neuts % (Manual) 77.0 H Lymphocytes % (Manual) Seg Neutrophils # Man 11.4 H Lymphocytes # (Manual) Monocytes # (Manual) 0.9 H PT 15.3 H INR 1.24 H APTT 22.4 L Sodium 124 L Potassium Chloride 87.1 L Carbon Dioxide 20 L BUN 45 H Glucose 801 H* POC Glucose Calcium 8.3 L ALT Total Creatine Kinase CK-MB (CK-2) Rel Index Troponin T 0.036 H Total Protein Albumin Triglycerides 301 H HDL Cholesterol 25 L 01/11/19 01/11/19 01/11/19 22:02 23:00 23:02 WBC Hgb Hct MCV RDW Seg Neuts % (Manual) Lymphocytes % (Manual) Seg Neutrophils # Man Lymphocytes # (Manual) Monocytes # (Manual) PT INR APTT Sodium 128 L 133 L Potassium 3.5 L Chloride 91.8 L 95.1 L Carbon Dioxide 21 L BUN 44 H 43 H Glucose 718 H* 588 H* POC Glucose > 500 H Calcium 8.0 L 7.8 L ALT Total Creatine Kinase CK-MB (CK-2) Rel Index Troponin T Total Protein Albumin Triglycerides HDL Cholesterol 01/12/19 01/12/19 01/12/19 00:11 01:10 02:02 WBC Hgb Hct MCV RDW Seg Neuts % (Manual) Lymphocytes % (Manual) Seg Neutrophils # Man Lymphocytes # (Manual) Monocytes # (Manual) PT INR APTT Sodium Potassium Chloride Carbon Dioxide BUN Glucose POC Glucose 434 H 434 H 317 H Calcium ALT Total Creatine Kinase CK-MB (CK-2) Rel Index Troponin T Total Protein Albumin Triglycerides HDL Cholesterol 01/12/19 01/12/19 01/12/19 03:15 03:56 04:11 WBC Hgb Hct MCV RDW Seg Neuts % (Manual) Lymphocytes % (Manual) Seg Neutrophils # Man Lymphocytes # (Manual) Monocytes # (Manual) PT INR APTT Sodium 136 L Potassium Chloride Carbon Dioxide BUN 39 H Glucose 220 H POC Glucose 219 H 137 H Calcium ALT Total Creatine Kinase CK-MB (CK-2) Rel Index Troponin T Total Protein Albumin Triglycerides HDL Cholesterol 01/12/19 01/12/19 01/12/19 05:12 06:26 06:47 WBC Hgb Hct MCV RDW Seg Neuts % (Manual) Lymphocytes % (Manual) Seg Neutrophils # Man Lymphocytes # (Manual) Monocytes # (Manual) PT INR APTT Sodium Potassium 3.3 L Chloride Carbon Dioxide BUN 36 H Glucose 121 H POC Glucose 145 H 118 H Calcium 8.3 L ALT Total Creatine Kinase CK-MB (CK-2) Rel Index Troponin T Total Protein Albumin Triglycerides HDL Cholesterol 01/12/19 01/12/19 01/12/19 06:47 07:48 09:07 WBC Hgb Hct MCV RDW Seg Neuts % (Manual) Lymphocytes % (Manual) Seg Neutrophils # Man Lymphocytes # (Manual) Monocytes # (Manual) PT INR APTT Sodium Potassium Chloride Carbon Dioxide BUN Glucose POC Glucose 114 H 159 H Calcium ALT Total Creatine Kinase 27 L CK-MB (CK-2) Rel Index 4.4 H Troponin T 0.031 H Total Protein Albumin Triglycerides HDL Cholesterol 01/12/19 01/12/19 01/12/19 10:55 12:04 12:47 WBC Hgb Hct MCV RDW Seg Neuts % (Manual) Lymphocytes % (Manual) Seg Neutrophils # Man Lymphocytes # (Manual) Monocytes # (Manual) PT INR APTT Sodium Potassium Chloride Carbon Dioxide BUN Glucose POC Glucose 142 H 183 H Calcium ALT Total Creatine Kinase 33 L CK-MB (CK-2) Rel Index Troponin T Total Protein Albumin Triglycerides HDL Cholesterol 01/12/19 01/12/19 01/12/19 15:07 15:55 16:57 WBC Hgb Hct MCV RDW Seg Neuts % (Manual) Lymphocytes % (Manual) Seg Neutrophils # Man Lymphocytes # (Manual) Monocytes # (Manual) PT INR APTT Sodium 133 L Potassium Chloride Carbon Dioxide 19 L BUN 31 H Glucose 221 H POC Glucose 305 H Calcium 8.0 L ALT 6 L Total Creatine Kinase CK-MB (CK-2) Rel Index Troponin T Total Protein Albumin Triglycerides HDL Cholesterol 01/12/19 01/12/19 01/12/19 17:15 20:43 21:14 WBC Hgb Hct MCV RDW Seg Neuts % (Manual) Lymphocytes % (Manual) Seg Neutrophils # Man Lymphocytes # (Manual) Monocytes # (Manual) PT INR APTT Sodium 132 L Potassium Chloride Carbon Dioxide 21 L BUN 24 H Glucose 336 H POC Glucose 266 H 350 H Calcium 7.8 L ALT Total Creatine Kinase CK-MB (CK-2) Rel Index Troponin T Total Protein Albumin Triglycerides HDL Cholesterol 01/13/19 01/13/19 01/13/19 05:46 05:46 07:12 WBC Hgb 11.0 L Hct 32.7 L D MCV 83 L RDW 16.3 H Seg Neuts % (Manual) 91.0 H Lymphocytes % (Manual) 3.0 L Seg Neutrophils # Man Lymphocytes # (Manual) 0.2 L Monocytes # (Manual) PT INR APTT Sodium 136 L Potassium Chloride Carbon Dioxide 19 L BUN Glucose 298 H POC Glucose 359 H Calcium 7.8 L ALT < 5 L Total Creatine Kinase CK-MB (CK-2) Rel Index Troponin T Total Protein 5.5 L Albumin 2.1 L Triglycerides HDL Cholesterol 01/13/19 11:39 WBC Hgb Hct MCV RDW Seg Neuts % (Manual) Lymphocytes % (Manual) Seg Neutrophils # Man Lymphocytes # (Manual) Monocytes # (Manual) PT INR APTT Sodium Potassium Chloride Carbon Dioxide BUN Glucose POC Glucose 236 H Calcium ALT Total Creatine Kinase CK-MB (CK-2) Rel Index Troponin T Total Protein Albumin Triglycerides HDL Cholesterol
[2019-01-13] MEDS: AD OINTMENT TP SCH (13:52)
--- NOTE | 2019-01-13 13:53 | Vascular Lab Report ---
DUPLEX DOPPLER LOWER EXTREMITY ARTERIAL, BILATERAL INDICATION: PVD/ Diabetic foot infection. Peripheral vascular disease. TECHNIQUE: Arterial duplex examination of both lower extremities performed using B-mode, color flow and spectral Doppler assessment. FINDINGS: RIGHT: Common Femoral Artery: PSV 90 cm/sec. Triphasic waveform. Proximal SFA: PSV 87 cm/sec. Triphasic waveform. Mid SFA: PSV 78 cm/sec. Triphasic waveform. Distal SFA: PSV 58 cm/sec. Triphasic waveform. Popliteal artery: PSV 88 cm/sec. Triphasic waveform. Posterior tibial artery: PSV 92 cm/sec. Triphasic waveform. Anterior tibial artery: PSV 69 cm/sec. Triphasic waveform. LEFT: Common Femoral Artery: PSV 133 cm/sec. Triphasic waveform. Proximal SFA: PSV 97 cm/sec. Triphasic waveform. Mid SFA: PSV 72 cm/sec. Triphasic waveform. Distal SFA: PSV 63 cm/sec. Triphasic waveform. Popliteal artery: PSV 87 cm/sec. Triphasic waveform. Posterior tibial artery: PSV 79 cm/sec. Triphasic waveform. Dorsalis Pedis Artery: PSV 33 cm/sec. Triphasic waveform. IMPRESSION: No significant lower extremity peripheral artery disease. Doppler Waveform: * Triphasic is normal. * Biphasic is abnormal if clear transition from triphasic signal along vascular tree. * Monophasic is abnormal. Signer Name: Cheo Steward Jr, MD Signed: 01/13/2019 1:48 PM Workstation Name: [id number]
--- NOTE | 2019-01-13 13:53 | Vascular Lab Report ---
DUPLEX DOPPLER LOWER EXTREMITY VEINS, BILATERAL INDICATION: cellulitis,r/o DVT. TECHNIQUE: Duplex doppler imaging was performed through the veins of both lower extremities using ve nous compression and other maneuvers. COMPARISON: No relevant prior imaging study available. FINDINGS: Right Common femoral vein: Negative. Right Superficial femoral vein: Negative. Right Popliteal vein: Negative. Right Calf veins: Negative. Left Common femoral vein: Negative. Left Superficial femoral vein: Negative. Left Popliteal vein: Negative. Left Calf veins: Negative. Additional findings: None.. IMPRESSION: No sonographic evidence for DVT in either lower extremity. Signer Name: Cheo Steward Jr, MD Signed: 01/13/2019 1:49 PM Workstation Name: [id number]
--- NOTE | 2019-01-13 14:36 | Progress Note ---
Assessment and Plan 68 y/o male with known diabetes, admitted with weakness, concerned for CVA, and found to be in DKA. 1. Stable pulm status. Will sign off at this time. Call if any questions or concerns. Subjective Date of service: 01/13/19 Principal diagnosis: paraparesis, dysarthria Interval history: Successful transfer out of unit. On room air. Appears to have refused MRI based on neurology note. Objective - Constitutional Vitals: Vital Signs - 12hr 01/13/19 01/13/19 07:05 08:00 Temperature 98.2 F Pulse Rate 87 Pulse Rate [ 87 Apical] Respiratory 20 20 Rate Blood Pressure 133/74 O2 Sat by Pulse 96 96 Oximetry - Labs CBC & Chem 7: 01/13/19 05:46 01/13/19 05:46 Labs: Abnormal lab results 01/12/19 01/12/19 01/12/19 Range/Units 15:07 15:55 16:57 Hgb (11.8-15.2) gm/dl Hct (35.5-45.6) % MCV (84-94) fl RDW (13.2-15.2) % Seg Neuts % (Manual) (40.0-70.0) % Lymphocytes % (Manual) (13.4-35.0) % Lymphocytes # (Manual) (1.2-5.4) K/mm3 Sodium 133 L (137-145) mmol/L Carbon Dioxide 19 L (22-30) mmol/L BUN 31 H (9-20) mg/dL Glucose 221 H (75-100) mg/dL POC Glucose 305 H (70-105) Calcium 8.0 L (8.4-10.2) mg/dL ALT 6 L (7-56) units/L Total Protein (6.3-8.2) g/dL Albumin (3.9-5) g/dL 01/12/19 01/12/19 01/12/19 Range/Units 17:15 20:43 21:14 Hgb (11.8-15.2) gm/dl Hct (35.5-45.6) % MCV (84-94) fl RDW (13.2-15.2) % Seg Neuts % (Manual) (40.0-70.0) % Lymphocytes % (Manual) (13.4-35.0) % Lymphocytes # (Manual) (1.2-5.4) K/mm3 Sodium 132 L (137-145) mmol/L Carbon Dioxide 21 L (22-30) mmol/L BUN 24 H (9-20) mg/dL Glucose 336 H (75-100) mg/dL POC Glucose 266 H 350 H (70-105) Calcium 7.8 L (8.4-10.2) mg/dL ALT (7-56) units/L Total Protein (6.3-8.2) g/dL Albumin (3.9-5) g/dL 01/13/19 01/13/19 01/13/19 Range/Units 05:46 05:46 07:12 Hgb 11.0 L (11.8-15.2) gm/dl Hct 32.7 L D (35.5-45.6) % MCV 83 L (84-94) fl RDW 16.3 H (13.2-15.2) % Seg Neuts % (Manual) 91.0 H (40.0-70.0) % Lymphocytes % (Manual) 3.0 L (13.4-35.0) % Lymphocytes # (Manual) 0.2 L (1.2-5.4) K/mm3 Sodium 136 L (137-145) mmol/L Carbon Dioxide 19 L (22-30) mmol/L BUN (9-20) mg/dL Glucose 298 H (75-100) mg/dL POC Glucose 359 H (70-105) Calcium 7.8 L (8.4-10.2) mg/dL ALT < 5 L (7-56) units/L Total Protein 5.5 L (6.3-8.2) g/dL Albumin 2.1 L (3.9-5) g/dL 01/13/19 Range/Units 11:39 Hgb (11.8-15.2) gm/dl Hct (35.5-45.6) % MCV (84-94) fl RDW (13.2-15.2) % Seg Neuts % (Manual) (40.0-70.0) % Lymphocytes % (Manual) (13.4-35.0) % Lymphocytes # (Manual) (1.2-5.4) K/mm3 Sodium (137-145) mmol/L Carbon Dioxide (22-30) mmol/L BUN (9-20) mg/dL Glucose (75-100) mg/dL POC Glucose 236 H (70-105) Calcium (8.4-10.2) mg/dL ALT (7-56) units/L Total Protein (6.3-8.2) g/dL Albumin (3.9-5) g/dL Medications & Allergies - Medications Allergies/Adverse Reactions: Allergies codeine Allergy (Verified 01/11/19 20:03) Shortness of Breath levofloxacin [From Levaquin] Adverse Reaction (Verified 01/11/19 20:03) Anaphylaxis Home Medications: Home Medications Medication Instructions Recorded Confirmed Last Taken Type Pregabalin [Lyrica] 300 mg PO BID 07/24/18 01/11/19 Unknown History Buprenorphine [Butrans] 1 each TD QWEEK MDD 1 01/11/19 01/11/19 01/08/19 History Insulin Glargine [Lantus VIAL] 40 units SQ QHS 01/11/19 01/11/19 Unknown History Lotensin Hct 20-12.5 mg Tablet 1 tab PO DAILY 01/11/19 01/11/19 Unknown History Active Medications: Generic Name Dose Route Start Last Admin Trade Name Freq PRN Reason Stop Dose Admin Acetaminophen 650 mg 01/12/19 00:10 01/13/19 01:58 Tylenol PO 650 mg Q4H PRN Administration Fever >101 Aspirin 81 mg 01/13/19 10:00 01/13/19 10:12 Baby Aspirin PO 81 mg QDAY MOOSE Administration Atorvastatin Calcium 20 mg 01/12/19 22:00 01/12/19 22:33 Lipitor PO 20 mg QHS MOOSE Administration Dextrose 0 ml 01/11/19 21:19 D50w (25gm) Syringe IV PRN PRN Hypoglycemia Heparin Sodium (Porcine) 5,000 unit 01/12/19 10:00 01/13/19 10:10 Heparin SUB-Q 5,000 unit Q12HR MOOSE Administration Cefepime HCl 1 gm in 100 mls @ 200 mls/hr 01/12/19 06:00 01/13/19 13:52 Maxipime/Ns 1 Gm/100 Ml IV 200 mls/hr Q8HR MOOSE Administration Protocol Vancomycin HCl 1 gm in 250 mls @ 166.667 mls/hr 01/13/19 10:00 01/13/19 10:13 Vancomycin/Ns 1 Gm/250 Ml IV 166.667 mls/hr Q12HR MOOSE Administration Insulin Human Isoph/Insulin Regular 20 unit 01/13/19 17:00 Humulin 70/30 SUB-Q BIDDIAB MOOSE Insulin Human Lispro 0 unit 01/12/19 16:30 01/13/19 11:53 Humalog SUB-Q 3 unit ACHS MOOSE Administration Protocol Metoprolol Tartrate 25 mg 01/13/19 22:00 Lopressor PO BID MOOSE Vitamin A/Vitamin D 1 applic 01/13/19 13:00 01/13/19 13:52 Ad Ointment TP 1 applic QDAY MOOSE Administration
--- NOTE | 2019-01-13 14:53 | Consultation ---
History of Present Illness - Reason for Consult Consult date: 01/13/19 nonhealing wounds bilateral feet - History of Present Illness With a history of nonhealing wounds to bilateral feet presents with altered mental status secondary to hyperosmolar nonketotic hyperglycemia. Ultrasound evaluation of his legs demonstrate no evidence of DVT. The patient does have multiphasic wave flow in the visualized vessels. On examination, the patient has sequela of venous insufficiency. His lower legs legs are warm Past History Past Medical History: diabetes, hypertension, other (? muscular dystrophy ) Past Surgical History: No surgical history Social history: Lives alone Family history: no significant family history Medications and Allergies Allergies Allergy/AdvReac Type Severity Reaction Status Date / Time codeine Allergy Shortness Verified 01/11/19 20:03 of Breath levofloxacin [From Levaquin] AdvReac Anaphylaxis Verified 01/11/19 20:03 Home Medications Medication Instructions Recorded Confirmed Last Taken Type Pregabalin [Lyrica] 300 mg PO BID 07/24/18 01/11/19 Unknown History Buprenorphine [Butrans] 1 each TD QWEEK MDD 1 01/11/19 01/11/19 01/08/19 History Insulin Glargine [Lantus VIAL] 40 units SQ QHS 01/11/19 01/11/19 Unknown History Lotensin Hct 20-12.5 mg Tablet 1 tab PO DAILY 01/11/19 01/11/19 Unknown History Active Meds: Active Medications Acetaminophen (Tylenol) 650 mg PO Q4H PRN PRN Reason: Fever >101 Last Admin: 01/13/19 14:40 Dose: 650 mg Documented by: Aspirin (Baby Aspirin) 81 mg PO QDAY [facility] Last Admin: 01/13/19 10:12 Dose: 81 mg Documented by: Atorvastatin Calcium (Lipitor) 20 mg PO QHS [facility] Last Admin: 01/12/19 22:33 Dose: 20 mg Documented by: Dextrose (D50w (25gm) Syringe) 0 ml IV PRN PRN PRN Reason: Hypoglycemia Heparin Sodium (Porcine) (Heparin) 5,000 unit SUB-Q Q12HR [facility] Last Admin: 01/13/19 10:10 Dose: 5,000 unit Documented by: Cefepime HCl (Maxipime/Ns 1 Gm/100 Ml) 1 gm in 100 mls @ 200 mls/hr IV Q8HR [facility]; Protocol Last Admin: 01/13/19 13:52 Dose: 200 mls/hr Documented by: Vancomycin HCl (Vancomycin/Ns 1 Gm/250 Ml) 1 gm in 250 mls @ 166.667 mls/hr IV Q12HR [facility] Last Admin: 01/13/19 10:13 Dose: 166.667 mls/hr Documented by: Insulin Human Isoph/Insulin Regular (Humulin 70/30) 20 unit SUB-Q BIDDIAB MOOSE Insulin Human Lispro (Humalog) 0 unit SUB-Q ACHS MOOSE; Protocol Last Admin: 01/13/19 11:53 Dose: 3 unit Documented by: Metoprolol Tartrate (Lopressor) 25 mg PO BID MOOSE Vitamin A/Vitamin D (Ad Ointment) 1 applic TP QDAY [facility] Last Admin: 01/13/19 13:52 Dose: 1 applic Documented by: Review of Systems ROS unobtainable: due to mental status Exam - Constitutional Vitals: Temp Pulse Resp BP Pulse Ox 98.2 F 87 20 133/74 96 01/13/19 07:05 01/13/19 08:00 01/13/19 08:00 01/13/19 07:05 01/13/19 08:00 General appearance: Present: no acute distress - EENT Eyes: Present: EOM intact ENT: hearing intact - Neck Neck: Present: supple, normal ROM - Respiratory Respiratory effort: normal - Extremities Extremities: abnormal Extremity abnormal: edema - Abdominal Male genitourinary: Present: deferred - Rectal Rectal Exam: deferred - Psychiatric Psychiatric: cooperative - Neurologic Neurologic: moves all extremities Results - Labs CBC & Chem 7: 01/13/19 05:46 01/13/19 05:46 Labs: Abnormal lab results 01/12/19 01/12/19 01/12/19 Range/Units 15:07 15:55 16:57 Hgb (11.8-15.2) gm/dl Hct (35.5-45.6) % MCV (84-94) fl RDW (13.2-15.2) % Seg Neuts % (Manual) (40.0-70.0) % Lymphocytes % (Manual) (13.4-35.0) % Lymphocytes # (Manual) (1.2-5.4) K/mm3 Sodium 133 L (137-145) mmol/L Carbon Dioxide 19 L (22-30) mmol/L BUN 31 H (9-20) mg/dL Glucose 221 H (75-100) mg/dL POC Glucose 305 H (70-105) Calcium 8.0 L (8.4-10.2) mg/dL ALT 6 L (7-56) units/L Total Protein (6.3-8.2) g/dL Albumin (3.9-5) g/dL 01/12/19 01/12/19 01/12/19 Range/Units 17:15 20:43 21:14 Hgb (11.8-15.2) gm/dl Hct (35.5-45.6) % MCV (84-94) fl RDW (13.2-15.2) % Seg Neuts % (Manual) (40.0-70.0) % Lymphocytes % (Manual) (13.4-35.0) % Lymphocytes # (Manual) (1.2-5.4) K/mm3 Sodium 132 L (137-145) mmol/L Carbon Dioxide 21 L (22-30) mmol/L BUN 24 H (9-20) mg/dL Glucose 336 H (75-100) mg/dL POC Glucose 266 H 350 H (70-105) Calcium 7.8 L (8.4-10.2) mg/dL ALT (7-56) units/L Total Protein (6.3-8.2) g/dL Albumin (3.9-5) g/dL 01/13/19 01/13/19 01/13/19 Range/Units 05:46 05:46 07:12 Hgb 11.0 L (11.8-15.2) gm/dl Hct 32.7 L D (35.5-45.6) % MCV 83 L (84-94) fl RDW 16.3 H (13.2-15.2) % Seg Neuts % (Manual) 91.0 H (40.0-70.0) % Lymphocytes % (Manual) 3.0 L (13.4-35.0) % Lymphocytes # (Manual) 0.2 L (1.2-5.4) K/mm3 Sodium 136 L (137-145) mmol/L Carbon Dioxide 19 L (22-30) mmol/L BUN (9-20) mg/dL Glucose 298 H (75-100) mg/dL POC Glucose 359 H (70-105) Calcium 7.8 L (8.4-10.2) mg/dL ALT < 5 L (7-56) units/L Total Protein 5.5 L (6.3-8.2) g/dL Albumin 2.1 L (3.9-5) g/dL 01/13/19 Range/Units 11:39 Hgb (11.8-15.2) gm/dl Hct (35.5-45.6) % MCV (84-94) fl RDW (13.2-15.2) % Seg Neuts % (Manual) (40.0-70.0) % Lymphocytes % (Manual) (13.4-35.0) % Lymphocytes # (Manual) (1.2-5.4) K/mm3 Sodium (137-145) mmol/L Carbon Dioxide (22-30) mmol/L BUN (9-20) mg/dL Glucose (75-100) mg/dL POC Glucose 236 H (70-105) Calcium (8.4-10.2) mg/dL ALT (7-56) units/L Total Protein (6.3-8.2) g/dL Albumin (3.9-5) g/dL - Imaging and Cardiology Venous US: report reviewed, image reviewed Assessment and Plan Given the patient's nonhealing wounds, but suspect a component of this is sec ondary to venous insufficiency. Small vessel disease secondary to uncontrolled diabetes is also contributing. His arterial ultrasound was performed however, did not adequately evaluate the distal vessels. We'll order a CTA of the abdomen and pelvis with runoff to the feet.`
--- NOTE | 2019-01-13 21:03 | Cat Scan Report ---
CTA ABDOMEN, PELVIS, AND LOWER EXTREMITIES INDICATION / CLINICAL INFORMATION: Non-healing wounds bilateral feet. TECHNIQUE: Axial CT images were obtained through the abdomen, pelvis and lower extremities after injection of 10 0 cc Omnipaque 350 IV contrast. 3 plane MIP / 3D reconstructions were produced. All CT scans at this location are performed using CT dose reduction for ALARA by means of automated exposure control. COMPARISON: CT abdomen and pelvis 07/24/2018 FINDINGS: CTA ABDOMEN: Abdominal Aorta: Mild to moderate vascular calcifications without stenosis, dissection or aneurysm Celiac Artery: No significant abnormality. Superior Mesenteric Artery: Moderate amount of calcification at its origin without stenosis. Right Renal Artery: Right kidney surgically absent Left Renal Artery: Moderate calcification at its origin without focal stenosis Inferior Mesenteric Artery: No significant abnormality. CTA PELVIS: RIGHT: - Common Iliac Artery: No significant abnormality. - Internal Iliac Artery: No significant abnormality. - External Iliac Artery: No significant abnormality. LEFT: - Common Iliac Artery: No significant abnormality. - Internal Iliac Artery: No significant abnormality. - External Iliac Artery: No significant abnormality. CTA LOWER EXTREMITIES: RIGHT LOWER EXTREMITY: - Common Femoral Artery: No significant abnormality. - Femoral Artery: Moderate diffuse atherosclerotic vascular disease without focal hemodynamically sig nificant stenosis or occlusion - Profunda Femoral Artery: No significant abnormality. - Popliteal Artery: No significant abnormality. - Anterior Tibial Artery: No significant abnormality. - Tibioperoneal Trunk: No significant abnormality. - Posterior Tibial Artery: No significant abnormality. - Peroneal Artery: No significant abnormality. - Ankle runoff: Three vessel. LEFT LOWER EXTREMITY: - Common Femoral Artery: No significant abnormality. - Femoral Artery: Moderate diffuse atherosclerotic vascular disease without focal hemodynamically si gnificant stenosis or occlusion- Profunda Femoral Artery: No significant abnormality. - Popliteal Artery: No significant abnormality. - Anterior Tibial Artery: No significant abnormality. - Tibioperoneal Trunk: No significant abnormality. - Posterior Tibial Artery: No significant abnormality. - Peroneal Artery: No significant abnormality. - Ankle runoff: Three vessel. NONTARGET STRUCTURES: ABDOMEN:Right kidney surgically absent. No significant abnormality PELVIS:No significant abnormality. LOWER EXTREMITIES:No significant abnormality. SKELETAL: Moderate degenerative changes lumbar spine ADDITIONAL FINDINGS: None. IMPRESSION: 1. Moderate atherosclerotic vascular calcifications within abdominal aorta and both femoral arteries without occlusive disease or stenosis. Normal bilateral 3 vessel runoffs. 2. Right kidney surgically absent, unchanged Signer Name: Henry Drew MD Signed: 01/13/2019 8:58 PM Workstation Name: [id number]
[2019-01-13] MEDS: LOPRESSOR PO SCH (23:08)
[2019-01-14] MEDS: BENADRYL PO PRN (01:08)
[2019-01-14] MEDS: MAXIPIME/NS 1 GM/100 ML 1 GM/100 ML BAG IV SCH ×3 (01:45→13:00)
[2019-01-14] MEDS: TYLENOL PO PRN (06:06)
[2019-01-14] MEDS: HumaLOG SUB-Q SCH ×3 (09:52→17:05)
[2019-01-14] MEDS: HEPARIN SUB-Q SCH ×2 (09:53→22:47)
[2019-01-14] MEDS: AD OINTMENT TP SCH (10:03)
[2019-01-14] MEDS: LOPRESSOR PO SCH ×2 (10:03→22:48)
[2019-01-14] MEDS: BABY ASPIRIN PO SCH (10:04)
--- NOTE | 2019-01-14 10:54 | Progress Note ---
Assessment and Plan 68 year old male with nonhealing wounds of the lower extremities with nonpalpable pedal pulses. CTA demonstrates left anterior tibial artery intermittent occlusions. Arterial study demonstrates triphasic flow to the ankles, but the left LINDA was probably dopplered ABOVE the occlusion. PPG left side blunted compared to right side. Will discuss case with the patient tomorrow. Multifactorial causes for nonhealing wounds, with the largest being uncontrolled diabetes. Subjective Date of service: 01/14/19 Principal diagnosis: paraparesis, dysarthria Interval history: Reviewed CTA which reports that there is bilaterally 3 vessel runoff which is not correct. There are intermittent occlusions of the left anterior tibial artery distally. Non palpable pedal pulses. Unsure if the ultrasound was performed above the level of the occlusion demonstrating falsely normal triphasic flow. ELADIO/PPG demonstrates normal ELADIO/PPG RLE and abnormal PPG LLE c onsistent with tibial disease. Objective - Constitutional Vitals: Vital Signs - 12hr 01/13/19 01/14/19 01/14/19 23:08 02:54 07:24 Temperature 99.6 F 98.3 F Pulse Rate 88 88 Respiratory 18 20 Rate Blood Pressure 103/63 108/65 103/65 O2 Sat by Pulse 97 95 Oximetry General appearance: Present: no acute distress - EENT Eyes: EOM intact ENT: hearing intact - Respiratory Respiratory effort: normal Extremities: normal temperature, normal color, abnormal (wounds to the bilateral feet) Extremity abnormal: pulses diminished - Psychiatric Psychiatric: appropriate mood/affect, cooperative - Labs CBC & Chem 7: 01/13/19 05:46 01/13/19 05:46 Labs: Abnormal lab results 01/13/19 01/13/19 01/13/19 Range/Units 11:39 16:47 21:38 POC Glucose 236 H 363 H 180 H (70-105) Hemoglobin A1c (4-6) % Prealbumin (0.200-0.400) g/L 01/14/19 01/14/19 01/14/19 Range/Units 05:07 05:07 07:32 POC Glucose 228 H (70-105) Hemoglobin A1c 15.2 H (4-6) % Prealbumin 0.059 L (0.200-0.400) g/L Medications & Allergies - Medications Allergies/Adverse Reactions: Allergies codeine Allergy (Verified 01/11/19 20:03) Shortness of Breath levofloxacin [From Levaquin] Adverse Reaction (Verified 01/11/19 20:03) Anaphylaxis Home Medications: Home Medications Medication Instructions Recorded Confirmed Last Taken Type Pregabalin [Lyrica] 300 mg PO BID 07/24/18 01/11/19 Unknown History Buprenorphine [Butrans] 1 each TD QWEEK MDD 1 01/11/19 01/11/19 01/08/19 History Insulin Glargine [Lantus VIAL] 40 units SQ QHS 01/11/19 01/11/19 Unknown History Lotensin Hct 20-12.5 mg Tablet 1 tab PO DAILY 01/11/19 01/11/19 Unknown History Active Medications: Generic Name Dose Route Start Last Admin Trade Name Freq PRN Reason Stop Dose Admin Acetaminophen 650 mg 01/12/19 00:10 01/14/19 06:06 Tylenol PO 650 mg Q4H PRN Administration Fever >101 Aspirin 81 mg 01/13/19 10:00 01/14/19 10:04 Baby Aspirin PO 81 mg QDAY MOOSE Administration Atorvastatin Calcium 20 mg 01/12/19 22:00 01/13/19 23:06 Lipitor PO 20 mg QHS MOOSE Administration Dextrose 0 ml 01/11/19 21:19 D50w (25gm) Syringe IV PRN PRN Hypoglycemia Diphenhydramine HCl 25 mg 01/14/19 00:52 01/14/19 01:08 Benadryl PO 25 mg QHS PRN Administration Sleep Heparin Sodium (Porcine) 5,000 unit 01/12/19 10:00 01/14/19 09:53 Heparin SUB-Q 5,000 unit Q12HR MOOSE Administration Cefepime HCl 1 gm in 100 mls @ 200 mls/hr 01/12/19 06:00 01/14/19 09:53 Maxipime/Ns 1 Gm/100 Ml IV 200 mls/hr Q8HR MOOSE Administration Protocol Vancomycin HCl 1 gm in 250 mls @ 166.667 mls/hr 01/13/19 10:00 01/13/19 23:10 Vancomycin/Ns 1 Gm/250 Ml IV 166.667 mls/hr Q12HR MOOSE Administration Insulin Human Isoph/Insulin Regular 20 unit 01/13/19 17:00 01/14/19 09:53 Humulin 70/30 SUB-Q 20 unit BIDDIAB MOOSE Administration Insulin Human Lispro 0 unit 01/12/19 16:30 01/14/19 09:52 Humalog SUB-Q 3 unit ACHS MOOSE Administration Protocol Metoprolol Tartrate 25 mg 01/13/19 22:00 01/14/19 10:03 Lopressor PO 25 mg BID MOOSE Administration Vitamin A/Vitamin D 1 applic 01/13/19 13:00 01/14/19 10:03 Ad Ointment TP 1 applic QDAY MOOSE Administration
[2019-01-14] MEDS: VANCOMYCIN/NS 1 GM/250 ML 1 GM/250 ML BAG IV SCH (11:33)
[2019-01-14] MEDS: PERCOCET 5/325 PO PRN ×2 (11:41→22:46)
--- NOTE | 2019-01-14 14:59 | Progress Note ---
Assessment and Plan Assessment and plan: --Bilateral ankle and foot cellulitis/diabetic foot infection Continue wound care, IV antibiotics, elevate the limb Vascular/surgery following, Foot x-rays; no evidence of osteomyelitis --Peripheral Vascular disease: On antiplatelets and statins Vascular following --Non-ST elevation KS; nonspecific elevation of cardiac enzymes Continue current cardiac medications, follow echocardiogram, cardiology if needed --Possible acute CVA;slurred speech and left-sided weakness;improved not a candidate for TPA,aspirin and statin ,Neuro evaluated Patient refused MRI studies recommended by neurology --Hyperosmolar nonketotic hyperglycemia; On insulin drip, blood sugars reasonably controlled Start ADA diet, DC insulin drip, start long-acting 7030 insulin 07/2018 HbA1c is 10.0, diabetic education, nutrition and education --Insulin-dependent diabetes mellitus; Uncontrolled blood sugars, noncompliance,Accu-Chek sliding scale coverage, long-acting insulin increased to 24 units 7030 Novolin twice a day --Hyponatremia; present on admission, resolved probably pseudohyponatremia, Secondary to hyperglycemia, --History of hypertension; blood pressures well controlled Continue current management, PRN hydralazine --Dyslipidemia; Statin --Severe Malnutrition/nutrition consult, supportive care --DVT prophylaxis; Lovenox --Full code; Consults and recommendations noted and appreciated Monitor closely and adjust the management as needed History Interval history: Patient seen and examined medical records reviewed Patient feels better wants to go home Patient refused all the neuro workup Complaints of some back pain Alert awake oriented 3 Vital signs reviewed Hospitalist Physical - Constitutional Vitals: Temp Pulse Resp BP Pulse Ox 98.0 F 81 20 91/57 96 01/14/19 13:43 01/14/19 13:44 01/14/19 13:43 01/14/19 13:43 01/14/19 13:44 General appearance: Present: no acute distress, well-nourished, cachectic - EENT Eyes: Present: PERRL, EOM intact - Neck Neck: Present: supple, normal ROM - Respiratory Respiratory effort: normal Respiratory: bilateral: diminished, negative: rales, rhonchi, wheezing - Cardiovascular Rhythm: regular Heart Sounds: Present: S1 & S2 - Extremities Extremities: no ischemia, No edema, abnormal (bilateral feet dressing in place) - Abdominal General gastrointestinal: soft, non-tender, non-distended, normal bowel sounds - Integumentary Integumentary: Present: clear, warm - Psychiatric Psychiatric: appropriate mood/affect, cooperative - Neurologic Neurologic: CNII-XII intact, moves all extremities Results - Labs CBC & Chem 7: 01/13/19 05:46 01/13/19 05:46 Labs: Laboratory Last Values WBC 8.3 K/mm3 (4.5-11.0) 01/13/19 05:46 RBC 3.92 M/mm3 (3.65-5.03) 01/13/19 05:46 Hgb 11.0 gm/dl (11.8-15.2) L 01/13/19 05:46 Hct 32.7 % (35.5-45.6) L D 01/13/19 05:46 MCV 83 fl (84-94) L 01/13/19 05:46 MCH 28 pg (28-32) 01/13/19 05:46 MCHC 34 % (32-34) 01/13/19 05:46 RDW 16.3 % (13.2-15.2) H 01/13/19 05:46 Plt Count 256 K/mm3 (140-440) 01/13/19 05:46 Add Manual Diff Complete 01/13/19 05:46 Total Counted 100 01/13/19 05:46 Seg Neuts % (Manual) 91.0 % (40.0-70.0) H 01/13/19 05:46 2.0 % 01/13/19 05:46 3.0 % (13.4-35.0) L 01/13/19 05:46 Reactive Lymphs % (Man) 0 % 01/13/19 05:46 3.0 % (0.0-7.3) 01/13/19 05:46 1.0 % (0.0-4.3) 01/13/19 05:46 0 % (0.0-1.8) 01/13/19 05:46 0 % 01/13/19 05:46 0 % 01/13/19 05:46 0 % 01/13/19 05:46 0 % 01/13/19 05:46 Nucleated RBC % Not Reportable 01/13/19 05:46 Seg Neutrophils # Man 7.6 K/mm3 (1.8-7.7) 01/13/19 05:46 Band Neutrophils # 0.2 K/mm3 01/13/19 05:46 0.2 K/mm3 (1.2-5.4) L 01/13/19 05:46 Abs React Lymphs (Man) 0.0 K/mm3 01/13/19 05:46 0.2 K/mm3 (0.0-0.8) 01/13/19 05:46 0.1 K/mm3 (0.0-0.4) 01/13/19 05:46 0.0 K/mm3 (0.0-0.1) 01/13/19 05:46 0.0 K/mm3 01/13/19 05:46 0.0 K/mm3 01/13/19 05:46 0.0 K/mm3 01/13/19 05:46 Blast Cells # 0.0 K/mm3 01/13/19 05:46 WBC Morphology Not Reportable 01/13/19 05:46 Hypersegmented Neuts Not Reportable 01/13/19 05:46 Hyposegmented Neuts Not Reportable 01/13/19 05:46 Hypogranular Neuts Not Reportable 01/13/19 05:46 Not Reportable 01/13/19 05:46 Not Reportable 01/13/19 05:46 Not Reportable 01/13/19 05:46 Not Reportable 01/13/19 05:46 Not Reportable 01/13/19 05:46 Not Reportable 01/13/19 05:46 Consistent w auto 01/13/19 05:46 Not Reportable 01/13/19 05:46 Plt Clumps, EDTA Not Reportable 01/13/19 05:46 Not Reportable 01/13/19 05:46 Not Reportable 01/13/19 05:46 Not Reportable 01/13/19 05:46 Plt Morphology Comment Not Reportable 01/13/19 05:46 RBC Morphology Normal 01/13/19 05:46 Dimorphic RBCs Not Reportable 01/13/19 05:46 Not Reportable 01/13/19 05:46 Not Reportable 01/13/19 05:46 Not Reportable 01/13/19 05:46 Not Reportable 01/13/19 05:46 Not Reportable 01/13/19 05:46 Not Reportable 01/13/19 05:46 Not Reportable 01/13/19 05:46 Not Reportable 01/13/19 05:46 Not Reportable 01/13/19 05:46 Not Reportable 01/13/19 05:46 Not Reportable 01/13/19 05:46 Not Reportable 01/13/19 05:46 Not Reportable 01/13/19 05:46 Not Reportable 01/13/19 05:46 Not Reportable 01/13/19 05:46 Not Reportable 01/13/19 05:46 Not Reportable 01/13/19 05:46 Not Reportable 01/13/19 05:46 Not Reportable 01/13/19 05:46 Acanthocytes (Spur) Not Reportable 01/13/19 05:46 Rouleaux Not Reportable 01/13/19 05:46 Not Reportable 01/13/19 05:46 Not Reportable 01/13/19 05:46 Not Reportable 01/13/19 05:46 Not Reportable 01/13/19 05:46 Hem Pathologist Commnt No 01/13/19 05:46 PT 15.3 Sec. (12.2-14.9) H 01/11/19 20:33 INR 1.24 (0.87-1.13) H 01/11/19 20:33 APTT 22.4 Sec. (24.2-36.6) L 01/11/19 20:33 17.8 Sec. (15.1-19.6) 01/11/19 20:33 VBG pH 7.401 (7.320-7.420) 01/11/19 22:02 Sodium 136 mmol/L (137-145) L 01/13/19 05:46 Potassium 3.6 mmol/L (3.6-5.0) 01/13/19 05:46 Chloride 105.7 mmol/L (98-107) 01/13/19 05:46 Carbon Dioxide 19 mmol/L (22-30) L 01/13/19 05:46 15 mmol/L 01/13/19 05:46 BUN 20 mg/dL (9-20) 01/13/19 05:46 0.8 mg/dL (0.8-1.5) 01/13/19 05:46 Estimated GFR > 60 ml/min 01/13/19 05:46 25 % 01/13/19 05:46 Glucose 298 mg/dL (75-100) H 01/13/19 05:46 POC Glucose 260 (70-105) H 01/14/19 11:51 15.2 % (4-6) H 01/14/19 05:07 Lactic Acid 1.80 mmol/L (0.7-2.0) 01/11/19 22:02 Calcium 7.8 mg/dL (8.4-10.2) L 01/13/19 05:46 Phosphorus 3.40 mg/dL (2.5-4.5) 01/11/19 20:33 Magnesium 1.80 mg/dL (1.7-2.3) 01/13/19 05:46 0.30 mg/dL (0.1-1.2) 01/13/19 05:46 AST 6 units/L (5-40) 01/13/19 05:46 ALT < 5 units/L (7-56) L 01/13/19 05:46 77 units/L (35-129) 01/13/19 05:46 34.0 umol/L (25-60) 01/12/19 16:57 33 units/L (55-170) L 01/12/19 12:04 CK-MB (CK-2) < 1.0 ng/mL (0.0-4.0) 01/12/19 12:04 CK-MB (CK-2) Rel Index 3.0 (0-4) 01/12/19 12:04 0.012 ng/mL (0.00-0.029) 01/12/19 12:04 5.5 g/dL (6.3-8.2) L 01/13/19 05:46 2.1 g/dL (3.9-5) L 01/13/19 05:46 0.6 % 01/13/19 05:46 0.059 g/L (0.200-0.400) L 01/14/19 05:07 Triglycerides 301 mg/dL (2-149) H 01/11/19 20:33 Cholesterol 137 mg/dL (50-199) 01/11/19 20:33 85 mg/dL (50-130) 01/11/19 20:33 25 mg/dL (40-59) L 01/11/19 20:33 5.48 % 01/11/19 20:33 Vitamin B12 357.4 pg/mL (211-911) 01/12/19 16:57 7.96 ng/mL (7.3-26.0) 01/12/19 16:57 TSH 1.160 mlU/mL (0.270-4.200) 01/12/19 16:57 Free T4 0.98 ng/dL (0.76-1.46) 01/12/19 16:57 Active Medications - Current Medications Current Medications: Generic Name Dose Route Start Last Admin Trade Name Freq PRN Reason Stop Dose Admin Acetaminophen 650 mg 01/12/19 00:10 01/14/19 06:06 Tylenol PO 650 mg Q4H PRN Administration Fever >101 Aspirin 81 mg 01/13/19 10:00 01/14/19 10:04 Baby Aspirin PO 81 mg QDAY MOOSE Administration Atorvastatin Calcium 20 mg 01/12/19 22:00 01/13/19 23:06 Lipitor PO 20 mg QHS MOOSE Administration Dextrose 0 ml 01/11/19 21:19 D50w (25gm) Syringe IV PRN PRN Hypoglycemia Diphenhydramine HCl 25 mg 01/14/19 00:52 01/14/19 01:08 Benadryl PO 25 mg QHS PRN Administration Sleep Heparin Sodium (Porcine) 5,000 unit 01/12/19 10:00 01/14/19 09:53 Heparin SUB-Q 5,000 unit Q12HR MOOSE Administration Cefepime HCl 1 gm in 100 mls @ 200 mls/hr 01/12/19 06:00 01/14/19 13:00 Maxipime/Ns 1 Gm/100 Ml IV 200 mls/hr Q8HR MOOSE Administration Protocol Vancomycin HCl 1 gm in 250 mls @ 166.667 mls/hr 01/13/19 10:00 01/14/19 11:33 Vancomycin/Ns 1 Gm/250 Ml IV 166.667 mls/hr Q12HR MOOSE Administration Insulin Human Isoph/Insulin Regular 24 unit 01/14/19 17:00 Humulin 70/30 SUB-Q BIDDIAB MOOSE Insulin Human Lispro 0 unit 01/12/19 16:30 01/14/19 13:00 Humalog SUB-Q 4 unit ACHS MOOSE Administration Protocol Metoprolol Tartrate 25 mg 01/13/19 22:00 01/14/19 10:03 Lopressor PO 25 mg BID MOOSE Administration Oxycodone/Acetaminophen 1 tab 01/14/19 10:53 01/14/19 11:41 Percocet 5/325 PO 1 tab Q6H PRN Administration Pain, Moderate (4-6) Vitamin A/Vitamin D 1 applic 01/13/19 13:00 01/14/19 10:03 Ad Ointment TP 1 applic QDAY MOOSE Administration Nutrition/Malnutrition Assess - Dietary Evaluation Nutrition/Malnutrition Findings: Nutrition Notes Start: 01/12/19 10 :44 Freq: Status: Active Protocol: Document 01/12/19 10:44 LP (Rec: 01/12/19 10:56 LP [email or web address]) Nutrition Notes 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 Pt has foot wound. Pt with AMS and unable to talk to, no family at bedside. Burn Absent Trauma Absent #1 Nutrition Diagnosis Increased nutrient needs ( specify in comment below) Comments: protein Etiology Wound healing As Evidenced by Signs and Symptoms Pt with infected foot wound Is patient on ventilator? No Is Patient Ambulatory and/or Out of Bed No REE-([facility]-confined to bed) Calculation Used for Recommendations [facility] Additional Notes Protein needs are 87-105g (1-1 .2g/kg) Fluid needs are 1ml/kcal Nutrition Intervention Change Diet Order: Advance diet to cardiac/ consistent CHO Add Supplement/Snack (indicate name/kcal Darryl BID /protein ) Provides kCal: 190 Provides Protein (gm) 5 Goal #1 Meet at least 80% of kcal and protein needs Goal #2 Wound healing Anticipated Discharge Needs: Cardiac/consistent CHO with ONS as needed Follow-Up By: 01/16/19 Additional Comments Follow for assessment needs, intakes
[2019-01-15] MEDS: HumaLOG SUB-Q SCH ×5 (01:37→23:26)
[2019-01-15 06:10] LABS: Hematocrit 32.7 % (35.5-45.6); Hemoglobin 11.1 gm/dl (11.8-15.2); Mean Corpuscular HGB Conc 34 % (32-34); Mean Corpuscular Volume 83 fl (84-94); Platelet Count 267 K/mm3 (140-440); Red Blood Count 3.95 M/mm3 (3.65-5.03); Red Cell Distribution Width 16.1 % (13.2-15.2)
[2019-01-15 06:26] LABS: BUN/Creatinine Ratio 11; Blood Urea Nitrogen 9 mg/dL (9-20); Calcium 8.1 mg/dL (8.4-10.2); Hemolysis Index 17
[2019-01-15] MEDS: MAXIPIME/NS 1 GM/100 ML 1 GM/100 ML BAG IV SCH ×4 (07:29→21:56)
[2019-01-15 08:07] LABS: Basophils # (Auto) 0.1 K/mm3 (0.0-0.1); Eosinophils # (Auto) 0.3 K/mm3 (0.0-0.4); Monocytes # (Auto) 0.5 K/mm3 (0.0-0.8)
[2019-01-15 08:45] LABS: Total Cells Counted 100
[2019-01-15 08:46] LABS: Basophils % (Manual) 0 % (0.0-1.8); Platelet Estimate Consistent w Auto; RBC Morphology Normal
[2019-01-15] MEDS: AD OINTMENT TP SCH ×2 (08:49→10:00)
[2019-01-15] MEDS: BABY ASPIRIN PO SCH ×2 (08:49→10:00)
[2019-01-15] MEDS: LOPRESSOR PO SCH ×3 (08:49→21:55)
[2019-01-15] MEDS: HEPARIN SUB-Q SCH ×3 (08:49→21:58)
[2019-01-15] MEDS: VANCOMYCIN/NS 1 GM/250 ML 1 GM/250 ML BAG IV SCH ×3 (09:04→23:06)
[2019-01-15] MEDS: PERCOCET 5/325 PO PRN ×2 (13:56→20:14)
--- NOTE | 2019-01-15 14:59 | Progress Note ---
Assessment and Plan 68 year old male with nonhealing wounds of the lower extremities with nonpalpable pedal pulses. CTA demonstrates left anterior tibial artery intermittent occlusions. Arterial study demonstrates triphasic flow to the ankles, but the left LINDA was probably dopplered ABOVE the occlusion. PPG left side blunted compared to right side. I had a long discussion discussion with the patient about his multifactorial causes for nonhealing wounds. His left lower extremity has arterial causes, but his underlying issues are predominately poor wound care and uncontrolled diabetes. I discussed revascularization with him but he wants to defer this until he is discharged. I discussed with him that he needs to followup with his PCP for diabetic c ontrol, followup with a wound care facility of his choosing (he prefers [facility]), and followup with me in 2 weeks. Patient understands. Subjective Date of service: 01/15/19 Principal diagnosis: paraparesis, dysarthria Interval history: Reviewed CTA which reports that there is bilaterally 3 vessel runoff which is not correct. There are intermittent occlusions of the left anterior tibial artery distally. Non palpable pedal pulses. Unsure if the ultrasound was performed above the level of the occlusion demonstrating falsely normal triphasic flow. ELADIO/PPG demonstrates normal ELADIO/PPG RLE and abnormal PPG LLE consistent with tibial disease. Objective - Constitutional Vitals: Vital Signs - 12hr 01/15/19 07:08 Temperature 98.6 F Pulse Rate 85 Respiratory 18 Rate Blood Pressure 112/62 O2 Sat by Pulse 98 Oximetry General appearance: Present: no acute distress - EENT Eyes: EOM intact ENT: hearing intact - Respiratory Respiratory effort: normal Extremities: normal temperature, normal color, abnormal (wounds of the bilateral feet) Extremity abnormal: pulses diminished - Psychiatric Psychiatric: appropriate mood/affect, cooperative - Labs CBC & Chem 7: 01/15/19 05:29 01/15/19 05:29 Labs: Abnormal lab results 01/14/19 01/15/19 01/15/19 Range/Units 16:50 05:29 05:29 Hgb 11.1 L (11.8-15.2) gm/dl Hct 32.7 L (35.5-45.6) % MCV 83 L (84-94) fl RDW 16.1 H (13.2-15.2) % Seg Neutrophils % 75.8 H (40.0-70.0) % Seg Neuts % (Manual) 87.0 H (40.0-70.0) % Lymphocytes % (Manual) 5.0 L (13.4-35.0) % Seg Neutrophils # Man 8.7 H (1.8-7.7) K/mm3 Lymphocytes # (Manual) 0.5 L (1.2-5.4) K/mm3 Sodium 134 L (137-145) mmol/L Carbon Dioxide 18 L (22-30) mmol/L Glucose 65 L (75-100) mg/dL POC Glucose 118 H (70-105) Calcium 8.1 L (8.4-10.2) mg/dL 01/15/19 Range/Units 11:18 Hgb (11.8-15.2) gm/dl Hct (35.5-45.6) % MCV (84-94) fl RDW (13.2-15.2) % Seg Neutrophils % (40.0-70.0) % Seg Neuts % (Manual) (40.0-70.0) % Lymphocytes % (Manual) (13.4-35.0) % Seg Neutrophils # Man (1.8-7.7) K/mm3 Lymphocytes # (Manual) (1.2-5.4) K/mm3 Sodium (137-145) mmol/L Carbon Dioxide (22-30) mmol/L Glucose (75-100) mg/dL POC Glucose 126 H (70-105) Calcium (8.4-10.2) mg/dL Medications & Allergies - Medications Allergies/Adverse Reactions: Allergies codeine Allergy (Verified 01/11/19 20:03) Shortness of Breath levofloxacin [From Levaquin] Adverse Reaction (Verified 01/11/19 20:03) Anaphylaxis Home Medications: Home Medications Medication Instructions Recorded Confirmed Last Taken Type Pregabalin [Lyrica] 300 mg PO BID 07/24/18 01/11/19 Unknown History Buprenorphine [Butrans] 1 each TD QWEEK MDD 1 01/11/19 01/11/19 01/08/19 History Insulin Glargine [Lantus VIAL] 40 units SQ QHS 01/11/19 01/11/19 Unknown History Lotensin Hct 20-12.5 mg Tablet 1 tab PO DAILY 01/11/19 01/11/19 Unknown History Active Medications: Generic Name Dose Route Start Last Admin Trade Name Freq PRN Reason Stop Dose Admin Acetaminophen 650 mg 01/12/19 00:10 01/14/19 06:06 Tylenol PO 650 mg Q4H PRN Administration Fever >101 Aspirin 81 mg 01/13/19 10:00 01/15/19 10:00 Baby Aspirin PO Not Given QDAY [facility] Atorvastatin Calcium 20 mg 01/12/19 22:00 01/14/19 22:47 Lipitor PO 20 mg QHS MOOSE Administration Dextrose 0 ml 01/11/19 21:19 D50w (25gm) Syringe IV PRN PRN Hypoglycemia Diphenhydramine HCl 25 mg 01/14/19 00:52 01/14/19 01:08 Benadryl PO 25 mg QHS PRN Administration Sleep Heparin Sodium (Porcine) 5,000 unit 01/12/19 10:00 01/15/19 10:00 Heparin SUB-Q Not Given Q12HR [facility] Cefepime HCl 1 gm in 100 mls @ 200 mls/hr 01/12/19 06:00 01/15/19 13:56 Maxipime/Ns 1 Gm/100 Ml IV 200 mls/hr Q8HR MOOSE Administration Protocol Vancomycin HCl 1 gm in 250 mls @ 166.667 mls/hr 01/13/19 10:00 01/15/19 09:05 Vancomycin/Ns 1 Gm/250 Ml IV 166.667 mls/hr Q12HR MOOSE Administration Insulin Human Isoph/Insulin Regular 24 unit 01/14/19 17:00 01/15/19 07:30 Humulin 70/30 SUB-Q 24 unit BIDDIAB MOOSE Administration Insulin Human Lispro 0 unit 01/12/19 16:30 01/15/19 11:37 Humalog SUB-Q Not Given ACHS [facility] Protocol Metoprolol Tartrate 25 mg 01/13/19 22:00 01/15/19 10:00 Lopressor PO Not Given BID [facility] Oxycodone/Acetaminophen 1 tab 01/14/19 10:53 01/15/19 13:56 Percocet 5/325 PO 1 tab Q6H PRN Administration Pain, Moderate (4-6) Vitamin A/Vitamin D 1 applic 01/13/19 13:00 01/15/19 10:00 Ad Ointment TP Not Given QDAY [facility]
--- NOTE | 2019-01-15 17:04 | Progress Note ---
Assessment and Plan Assessment and plan: --Bilateral ankle and foot cellulitis/diabetic foot infection Continue wound care, IV antibiotics, elevate the limb Vascular/surgery following, Foot x-rays; no evidence of osteomyelitis --Enterococcus wound cultures; continue Vanco cefepime, ID consult --Peripheral Vascular disease: On aspirin and statin, Vascular following Left anterior tibial artery intermittent occlusions on CTA Vascular recommend revascularization, Pt wants to defer until he is discharged and f/u OP --Non-ST elevation MT; nonspecific elevation of cardiac enzymes Continue current cardiac medications, follow echocardiogram, cardiology if needed --Possible acute CVA;slurred speech and left-sided weakness;improved not a candidate for TPA,aspirin and statin ,Neuro evaluated Patient refused MRI studies recommended by neurology --Hyperosmolar nonketotic hyperglycemia; present on admission s/p insulin drip, blood sugars well controlled Accu-Chek sliding scale coverage, long-acting 7030 insulin, ADA diet 07/2018 HbA1c is 10.0, diabetic education, nutrition and education --Insulin-dependent diabetes mellitus; well controlled Accu-Chek sliding scale coverage, Novolin 70/30, 24 units twice a day --Hyponatremia; present on admission, resolved probably pseudohyponatremia, Secondary to hyperglycemia, --History of hypertension; blood pressures well controlled Continue current management, PRN hydralazine --Dyslipidemia; Statin --Severe Malnutrition/nutrition consult, supportive care --DVT prophylaxis; Lovenox --Full code; Consults and recommendations noted and appreciated Monitor closely and adjust the management as needed Disposition; follow ID evaluation and recommendations Discharge and medically stable, outpatient wound care History Interval history: Patient seen and examined patient's chart reviewed Patient's blood sugars have been controlled Vascular evaluation and recommendations noted CT abdomen; moderate atherosclerotic vascular calcification within the abdominal aorta and Bennett lactose without occlusive disease or stenosisNormal bilateral three-vessel runoff Rt.kidney surgically absent . Hospitalist Physical - Constitutional Vitals: Temp Pulse Resp BP Pulse Ox 99.8 F H 88 18 98/53 95 01/15/19 14:13 01/15/19 14:13 01/15/19 14:13 01/15/19 14:13 01/15/19 14:13 General appearance: Present: no acute distress, well-nourished - EENT Eyes: Present: PERRL, EOM intact - Neck Neck: Present: supple, normal ROM - Respiratory Respiratory effort: normal Respiratory: bilateral: diminished, negative: rales, rhonchi, wheezing - Cardiovascular Rhythm: regular Heart Sounds: Present: S1 & S2 - Extremities Extremities: No edema, abnormal (bilateral nonhealing wounds/cellulitis, dressing in place) - Abdominal General gastrointestinal: soft, non-tender, non-distended, normal bowel sounds - Integumentary Integumentary: Present: clear, warm - Psychiatric Psychiatric: appropriate mood/affect, cooperative - Neurologic Neurologic: CNII-XII intact, moves all extremities Results - Labs CBC & Chem 7: 01/15/19 05:29 01/15/19 05:29 Labs: Laboratory Last Values WBC 10.0 K/mm3 (4.5-11.0) 01/15/19 05:29 RBC 3.95 M/mm3 (3.65-5.03) 01/15/19 05:29 Hgb 11.1 gm/dl (11.8-15.2) L 01/15/19 05:29 Hct 32.7 % (35.5-45.6) L 01/15/19 05:29 MCV 83 fl (84-94) L 01/15/19 05:29 MCH 28 pg (28-32) 01/15/19 05:29 MCHC 34 % (32-34) 01/15/19 05:29 RDW 16.1 % (13.2-15.2) H 01/15/19 05:29 Plt Count 267 K/mm3 (140-440) 01/15/19 05:29 [place] % (Auto) 5.0 % (0.0-7.3) 01/15/19 05:29 Eos % (Auto) 3.0 % (0.0-4.3) 01/15/19 05:29 [place] # 0.5 K/mm3 (0.0-0.8) 01/15/19 05:29 Eos # 0.3 K/mm3 (0.0-0.4) 01/15/19 05:29 Baso # 0.1 K/mm3 (0.0-0.1) 01/15/19 05:29 Add Manual Diff Complete 01/15/19 05:29 Total Counted 100 01/15/19 05:29 Seg Neutrophils % 75.8 % (40.0-70.0) H 01/15/19 05:29 Seg Neuts % (Manual) 87.0 % (40.0-70.0) H 01/15/19 05:29 0 % 01/15/19 05:29 5.0 % (13.4-35.0) L 01/15/19 05:29 Reactive Lymphs % (Man) 0 % 01/15/19 05:29 5.0 % (0.0-7.3) 01/15/19 05:29 1.0 % (0.0-4.3) 01/15/19 05:29 0 % (0.0-1.8) 01/15/19 05:29 2.0 % 01/15/19 05:29 0 % 01/15/19 05:29 0 % 01/15/19 05:29 0 % 01/15/19 05:29 Nucleated RBC % Not Reportable 01/15/19 05:29 Seg Neutrophils # 7.7 K/mm3 (1.8-7.7) 01/15/19 05:29 Seg Neutrophils # Man 8.7 K/mm3 (1.8-7.7) H 01/15/19 05:29 Band Neutrophils # 0.0 K/mm3 01/15/19 05:29 0.5 K/mm3 (1.2-5.4) L 01/15/19 05:29 Abs React Lymphs (Man) 0.0 K/mm3 01/15/19 05:29 0.5 K/mm3 (0.0-0.8) 01/15/19 05:29 0.1 K/mm3 (0.0-0.4) 01/15/19 05:29 0.0 K/mm3 (0.0-0.1) 01/15/19 05:29 0.2 K/mm3 01/15/19 05:29 0.0 K/mm3 01/15/19 05:29 0.0 K/mm3 01/15/19 05:29 Blast Cells # 0.0 K/mm3 01/15/19 05:29 WBC Morphology Not Reportable 01/15/19 05:29 Hypersegmented Neuts Not Reportable 01/15/19 05:29 Hyposegmented Neuts Not Reportable 01/15/19 05:29 Hypogranular Neuts Not Reportable 01/15/19 05:29 Not Reportable 01/15/19 05:29 Not Reportable 01/15/19 05:29 Not Reportable 01/15/19 05:29 Not Reportable 01/15/19 05:29 Not Reportable 01/15/19 05:29 Not Reportable 01/15/19 05:29 Consistent w auto 01/15/19 05:29 Not Reportable 01/15/19 05:29 Plt Clumps, EDTA Not Reportable 01/15/19 05:29 Not Reportable 01/15/19 05:29 Not Reportable 01/15/19 05:29 Not Reportable 01/15/19 05:29 Plt Morphology Comment Not Reportable 01/15/19 05:29 RBC Morphology Normal 01/15/19 05:29 Dimorphic RBCs Not Reportable 01/15/19 05:29 Not Reportable 01/15/19 05:29 Not Reportable 01/15/19 05:29 Not Reportable 01/15/19 05:29 Not Reportable 01/15/19 05:29 Not Reportable 01/15/19 05:29 Not Reportable 01/15/19 05:29 Not Reportable 01/15/19 05:29 Not Reportable 01/15/19 05:29 Not Reportable 01/15/19 05:29 Not Reportable 01/15/19 05:29 Not Reportable 01/15/19 05:29 Not Reportable 01/15/19 05:29 Not Reportable 01/15/19 05:29 Not Reportable 01/15/19 05:29 Not Reportable 01/15/19 05:29 Not Reportable 01/15/19 05:29 Not Reportable 01/15/19 05:29 Not Reportable 01/15/19 05:29 Not Reportable 01/15/19 05:29 Acanthocytes (Spur) Not Reportable 01/15/19 05:29 Rouleaux Not Reportable 01/15/19 05:29 Not Reportable 01/15/19 05:29 Not Reportable 01/15/19 05:29 Not Reportable 01/15/19 05:29 Not Reportable 01/15/19 05:29 Hem Pathologist Commnt No 01/15/19 05:29 PT 15.3 Sec. (12.2-14.9) H 01/11/19 20:33 INR 1.24 (0.87-1.13) H 01/11/19 20:33 APTT 22.4 Sec. (24.2-36.6) L 01/11/19 20:33 17.8 Sec. (15.1-19.6) 01/11/19 20:33 VBG pH 7.401 (7.320-7.420) 01/11/19 22:02 Sodium 134 mmol/L (137-145) L 01/15/19 05:29 Potassium 3.8 mmol/L (3.6-5.0) 01/15/19 05:29 Chloride 104.5 mmol/L (98-107) 01/15/19 05:29 Carbon Dioxide 18 mmol/L (22-30) L 01/15/19 05:29 15 mmol/L 01/15/19 05:29 BUN 9 mg/dL (9-20) 01/15/19 05:29 0.8 mg/dL (0.8-1.5) 01/15/19 05:29 Estimated GFR > 60 ml/min 01/15/19 05:29 11 % 01/15/19 05:29 Glucose 65 mg/dL (75-100) L 01/15/19 05:29 POC Glucose 153 (70-105) H 01/15/19 16:14 15.2 % (4-6) H 01/14/19 05:07 Lactic Acid 1.80 mmol/L (0.7-2.0) 01/11/19 22:02 Calcium 8.1 mg/dL (8.4-10.2) L 01/15/19 05:29 Phosphorus 3.40 mg/dL (2.5-4.5) 01/11/19 20:33 Magnesium 1.80 mg/dL (1.7-2.3) 01/13/19 05:46 0.30 mg/dL (0.1-1.2) 01/13/19 05:46 AST 6 units/L (5-40) 01/13/19 05:46 ALT < 5 units/L (7-56) L 01/13/19 05:46 77 units/L (35-129) 01/13/19 05:46 34.0 umol/L (25-60) 01/12/19 16:57 33 units/L (55-170) L 01/12/19 12:04 CK-MB (CK-2) < 1.0 ng/mL (0.0-4.0) 01/12/19 12:04 CK-MB (CK-2) Rel Index 3.0 (0-4) 01/12/19 12:04 0.012 ng/mL (0.00-0.029) 01/12/19 12:04 5.5 g/dL (6.3-8.2) L 01/13/19 05:46 2.1 g/dL (3.9-5) L 01/13/19 05:46 0.6 % 01/13/19 05:46 0.059 g/L (0.200-0.400) L 01/14/19 05:07 Triglycerides 301 mg/dL (2-149) H 01/11/19 20:33 Cholesterol 137 mg/dL (50-199) 01/11/19 20:33 85 mg/dL (50-130) 01/11/19 20:33 25 mg/dL (40-59) L 01/11/19 20:33 5.48 % 01/11/19 20:33 Vitamin B12 357.4 pg/mL (211-911) 01/12/19 16:57 7.96 ng/mL (7.3-26.0) 01/12/19 16:57 TSH 1.160 mlU/mL (0.270-4.200) 01/12/19 16:57 Free T4 0.98 ng/dL (0.76-1.46) 01/12/19 16:57 Active Medications - Current Medications Current Medications: Generic Name Dose Route Start Last Admin Trade Name Freq PRN Reason Stop Dose Admin Acetaminophen 650 mg 01/12/19 00:10 01/14/19 06:06 Tylenol PO 650 mg Q4H PRN Administration Fever >101 Aspirin 81 mg 01/13/19 10:00 01/15/19 10:00 Baby Aspirin PO Not Given QDAY MOOSE Atorvastatin Calcium 20 mg 01/12/19 22:00 01/14/19 22:47 Lipitor PO 20 mg QHS MOOSE Administration Dextrose 0 ml 01/11/19 21:19 D50w (25gm) Syringe IV PRN PRN Hypoglycemia Diphenhydramine HCl 25 mg 01/14/19 00:52 01/14/19 01:08 Benadryl PO 25 mg QHS PRN Administration Sleep Heparin Sodium (Porcine) 5,000 unit 01/12/19 10:00 01/15/19 10:00 Heparin SUB-Q Not Given Q12HR MOOSE Cefepime HCl 1 gm in 100 mls @ 200 mls/hr 01/12/19 06:00 01/15/19 13:56 Maxipime/Ns 1 Gm/100 Ml IV 200 mls/hr Q8HR MOOSE Administration Protocol Vancomycin HCl 1 gm in 250 mls @ 166.667 mls/hr 01/13/19 10:00 01/15/19 09:05 Vancomycin/Ns 1 Gm/250 Ml IV 166.667 mls/hr Q12HR MOOSE Administration Insulin Human Isoph/Insulin Regular 24 unit 01/14/19 17:00 01/15/19 07:30 Humulin 70/30 SUB-Q 24 unit BIDDIAB MOOSE Administration Insulin Human Lispro 0 unit 01/12/19 16:30 01/15/19 11:37 Humalog SUB-Q Not Given ACHS [facility] Protocol Metoprolol Tartrate 25 mg 01/13/19 22:00 01/15/19 10:00 Lopressor PO Not Given BID [facility] Oxycodone/Acetaminophen 1 tab 01/14/19 10:53 01/15/19 13:56 Percocet 5/325 PO 1 tab Q6H PRN Administration Pain, Moderate (4-6) Vitamin A/Vitamin D 1 applic 01/13/19 13:00 01/15/19 10:00 Ad Ointment TP Not Given QDAY [facility] Nutrition/Malnutrition Assess - Dietary Evaluation Nutrition/Malnutrition Findings: Nutrition Notes Start: 01/12/19 10:44 Freq: Status: Active Protocol: Document 01/14/19 15:55 RM (Rec: 01/14/19 16:05 RM [id number]) Nutrition Notes Initial or Follow up Reassessment Current Diagnosis Decubitus(Pressure Ulcer), Diabetes,Hypertension Other Pertinent Diagnosis cellulitis, DKA, DM foot wound Current Diet Consistent CHO w/Glucerna BID Labs/Tests A1c 15.2 Pertinent Medications Reviewed Height 5 ft 10 in Weight 87.4 kg [place] Body Weight (kg) 75.45 BMI 27.6 Subjective/Other Information Pt stated that [employer] [employer] his appetite was good. Stated that his appetite is good now and that he eats all of his meals. No temporal or orbital wasting . Pt did not seem focused on DM diet education d/t being distracted by wanting to visit with brother in hallway. Pt took handout. Percent of energy/protein needs met: 100%/100% Burn Absent Trauma Absent #1 Nutrition Diagnosis Increased nutrient needs ( specify in comment below) Diagnosis Progress(for reassessment Continues documentation) Is patient on ventilator? No Is Patient Ambulatory and/or Out of Bed No REE-([facility]-confined to bed) 688 Calculation Used for Recommendations [facility] Additional Notes Protein needs are 87-105g (1-1 .2g/kg) Fluid needs are 1ml/kcal Nutrition Intervention Change Diet Order: Cardiac/Consistent CHO Add Supplement/Snack (indicate name/kcal Darryl BID. D/C Glucerna. /protein ) Provides kCal: 190 Provides Protein (gm) 5 Education Handouts Provided Carbohydrate counting for people with diabetes Goal #1 Continue to meet at least 75% of kcal and protein needs Goal #2 Wound healing Anticipated Discharge Needs: Cardiac/consistent CHO Follow-Up By: 01/17/19 Additional Comments Follow for PO and Darryl intakes
[2019-01-16] MEDS: BENADRYL PO PRN (00:23)
[2019-01-16] MEDS: TYLENOL PO PRN (02:13)
[2019-01-16] MEDS: MAXIPIME/NS 1 GM/100 ML 1 GM/100 ML BAG IV SCH (05:45)
[2019-01-16] MEDS: HumaLOG SUB-Q SCH (07:12)
[2019-01-16] MEDS: VANCOMYCIN/NS 1 GM/250 ML 1 GM/250 ML BAG IV SCH (09:12)
[2019-01-16] MEDS: AD OINTMENT TP SCH (09:22)
[2019-01-16] MEDS: BABY ASPIRIN PO SCH (09:22)
[2019-01-16] MEDS: HEPARIN SUB-Q SCH (09:22)
[2019-01-16] MEDS: LOPRESSOR PO SCH (09:26)
--- NOTE | 2019-01-16 09:26 | Progress Note ---
Assessment and Plan Assessment and plan: --Bilateral ankle and foot cellulitis/diabetic foot infection Continue wound care, IV antibiotics, elevate the limb Vascular/surgery following, Foot x-rays; no evidence of osteomyelitis --Enterococcus wound cultures; continue Vanco cefepime, ID consult --Peripheral Vascular disease: On aspirin and statin, Vascular following Left anterior tibial artery intermittent occlusions on CTA Vascular recommend revascularization, Pt wants to defer until he is discharged and f/u OP --Non-ST elevation OR; nonspecific elevation of cardiac enzymes Continue current cardiac medications, follow echocardiogram, cardiology if needed --Possible acute CVA;slurred speech and left-sided weakness;improved not a candidate for TPA,aspirin and statin ,Neuro evaluated Patient refused MRI studies recommended by neurology --Hyperosmolar nonketotic hyperglycemia; present on admission s/p insulin drip, blood sugars well controlled Accu-Chek sliding scale coverage, long-acting 7030 insulin, ADA diet 07/2018 HbA1c is 10.0, diabetic education, nutrition and education --Insulin-dependent diabetes mellitus; well controlled Accu-Chek sliding scale coverage, Novolin 70/30, 24 units twice a day --Hyponatremia; present on admission, resolved probably pseudohyponatremia, Secondary to hyperglycemia, --History of hypertension; blood pressures well controlled Continue current management, PRN hydralazine --Dyslipidemia; Statin --Severe Malnutrition/nutrition consult, supportive care --DVT prophylaxis; Lovenox --Full code; Consults and recommendations noted and appreciated Monitor closely and adjust the management as needed Disposition; follow ID evaluation and recommendations Discharge and medically stable, outpatient wound care Hospitalist Physical - Constitutional Vitals: Temp Pulse Resp BP Pulse Ox 98.9 F 90 18 92/57 95 01/16/19 07:04 01/16/19 07:04 01/16/19 07:04 01/16/19 07:04 01/16/19 07:04 General appearance: Present: no acute distress, well-nourished Results - Labs CBC & Chem 7: 01/15/19 05:29 01/15/19 05:29 Labs: Laboratory Last Values WBC 10.0 K/mm3 (4.5-11.0) 01/15/19 05:29 RBC 3.95 M/mm3 (3.65-5.03) 01/15/19 05:29 Hgb 11.1 gm/dl (11.8-15.2) L 01/15/19 05:29 Hct 32.7 % (35.5-45.6) L 01/15/19 05:29 MCV 83 fl (84-94) L 01/15/19 05:29 MCH 28 pg (28-32) 01/15/19 05:29 MCHC 34 % (32-34) 01/15/19 05:29 RDW 16.1 % (13.2-15.2) H 01/15/19 05:29 Plt Count 267 K/mm3 (140-440) 01/15/19 05:29 [place] % (Auto) 5.0 % (0.0-7.3) 01/15/19 05:29 Eos % (Auto) 3.0 % (0.0-4.3) 01/15/19 05:29 [place] # 0.5 K/mm3 (0.0-0.8) 01/15/19 05:29 Eos # 0.3 K/mm3 (0.0-0.4) 01/15/19 05:29 Baso # 0.1 K/mm3 (0.0-0.1) 01/15/19 05:29 Add Manual Diff Complete 01/15/19 05:29 Total Counted 100 01/15/19 05:29 Seg Neutrophils % 75.8 % (40.0-70.0) H 01/15/19 05:29 Seg Neuts % (Manual) 87.0 % (40.0-70.0) H 01/15/19 05:29 0 % 01/15/19 05:29 5.0 % (13.4-35.0) L 01/15/19 05:29 Reactive Lymphs % (Man) 0 % 01/15/19 05:29 5.0 % (0.0-7.3) 01/15/19 05:29 1.0 % (0.0-4.3) 01/15/19 05:29 0 % (0.0-1.8) 01/15/19 05:29 2.0 % 01/15/19 05:29 0 % 01/15/19 05:29 0 % 01/15/19 05:29 0 % 01/15/19 05:29 Nucleated RBC % Not Reportable 01/15/19 05:29 Seg Neutrophils # 7.7 K/mm3 (1.8-7.7) 01/15/19 05:29 Seg Neutrophils # Man 8.7 K/mm3 (1.8-7.7) H 01/15/19 05:29 Band Neutrophils # 0.0 K/mm3 01/15/19 05:29 0.5 K/mm3 (1.2-5.4) L 01/15/19 05:29 Abs React Lymphs (Man) 0.0 K/mm3 01/15/19 05:29 0.5 K/mm3 (0.0-0.8) 01/15/19 05:29 0.1 K/mm3 (0.0-0.4) 01/15/19 05:29 0.0 K/mm3 (0.0-0.1) 01/15/19 05:29 0.2 K/mm3 01/15/19 05:29 0.0 K/mm3 01/15/19 05:29 0.0 K/mm3 01/15/19 05:29 Blast Cells # 0.0 K/mm3 01/15/19 05:29 WBC Morphology Not Reportable 01/15/19 05:29 Hypersegmented Neuts Not Reportable 01/15/19 05:29 Hyposegmented Neuts Not Reportable 01/15/19 05:29 Hypogranular Neuts Not Reportable 01/15/19 05:29 Not Reportable 01/15/19 05:29 Not Reportable 01/15/19 05:29 Not Reportable 01/15/19 05:29 Not Reportable 01/15/19 05:29 Not Reportable 01/15/19 05:29 Not Reportable 01/15/19 05:29 Consistent w auto 01/15/19 05:29 Not Reportable 01/15/19 05:29 Plt Clumps, EDTA Not Reportable 01/15/19 05:29 Not Reportable 01/15/19 05:29 Not Reportable 01/15/19 05:29 Not Reportable 01/15/19 05:29 Plt Morphology Comment Not Reportable 01/15/19 05:29 RBC Morphology Normal 01/15/19 05:29 Dimorphic RBCs Not Reportable 01/15/19 05:29 Not Reportable 01/15/19 05:29 Not Reportable 01/15/19 05:29 Not Reportable 01/15/19 05:29 Not Reportable 01/15/19 05:29 Not Reportable 01/15/19 05:29 Not Reportable 01/15/19 05:29 Not Reportable 01/15/19 05:29 Not Reportable 01/15/19 05:29 Not Reportable 01/15/19 05:29 Not Reportable 01/15/19 05:29 Not Reportable 01/15/19 05:29 Not Reportable 01/15/19 05:29 Not Reportable 01/15/19 05:29 Not Reportable 01/15/19 05:29 Not Reportable 01/15/19 05:29 Not Reportable 01/15/19 05:29 Not Reportable 01/15/19 05:29 Not Reportable 01/15/19 05:29 Not Reportable 01/15/19 05:29 Acanthocytes (Spur) Not Reportable 01/15/19 05:29 Rouleaux Not Reportable 01/15/19 05:29 Not Reportable 01/15/19 05:29 Not Reportable 01/15/19 05:29 Not Reportable 01/15/19 05:29 Not Reportable 01/15/19 05:29 Hem Pathologist Commnt No 01/15/19 05:29 PT 15.3 Sec. (12.2-14.9) H 01/11/19 20:33 INR 1.24 (0.87-1.13) H 01/11/19 20:33 APTT 22.4 Sec. (24.2-36.6) L 01/11/19 20:33 17.8 Sec. (15.1-19.6) 01/11/19 20:33 VBG pH 7.401 (7.320-7.420) 01/11/19 22:02 Sodium 134 mmol/L (137-145) L 01/15/19 05:29 Potassium 3.8 mmol/L (3.6-5.0) 01/15/19 05:29 Chloride 104.5 mmol/L (98-107) 01/15/19 05:29 Carbon Dioxide 18 mmol/L (22-30) L 01/15/19 05:29 15 mmol/L 01/15/19 05:29 BUN 9 mg/dL (9-20) 01/15/19 05:29 0.8 mg/dL (0.8-1.5) 01/15/19 05:29 Estimated GFR > 60 ml/min 01/15/19 05:29 11 % 01/15/19 05:29 Glucose 65 mg/dL (75-100) L 01/15/19 05:29 POC Glucose 114 (70-105) H 01/16/19 07:10 15.2 % (4-6) H 01/14/19 05:07 Lactic Acid 1.80 mmol/L (0.7-2.0) 01/11/19 22:02 Calcium 8.1 mg/dL (8.4-10.2) L 01/15/19 05:29 Phosphorus 3.40 mg/dL (2.5-4.5) 01/11/19 20:33 Magnesium 1.80 mg/dL (1.7-2.3) 01/13/19 05:46 0.30 mg/dL (0.1-1.2) 01/13/19 05:46 AST 6 units/L (5-40) 01/13/19 05:46 ALT < 5 units/L (7-56) L 01/13/19 05:46 77 units/L (35-129) 01/13/19 05:46 34.0 umol/L (25-60) 01/12/19 16:57 33 units/L (55-170) L 01/12/19 12:04 CK-MB (CK-2) < 1.0 ng/mL (0.0-4.0) 01/12/19 12:04 CK-MB (CK-2) Rel Index 3.0 (0-4) 01/12/19 12:04 0.012 ng/mL (0.00-0.029) 01/12/19 12:04 5.5 g/dL (6.3-8.2) L 01/13/19 05:46 2.1 g/dL (3.9-5) L 01/13/19 05:46 0.6 % 01/13/19 05:46 0.059 g/L (0.200-0.400) L 01/14/19 05:07 Triglycerides 301 mg/dL (2-149) H 01/11/19 20:33 Cholesterol 137 mg/dL (50-199) 01/11/19 20:33 85 mg/dL (50-130) 01/11/19 20:33 25 mg/dL (40-59) L 01/11/19 20:33 5.48 % 01/11/19 20:33 Vitamin B12 357.4 pg/mL (211-911) 01/12/19 16:57 7.96 ng/mL (7.3-26.0) 01/12/19 16:57 TSH 1.160 mlU/mL (0.270-4.200) 01/12/19 16:57 Free T4 0.98 ng/dL (0.76-1.46) 01/12/19 16:57 Random Vancomycin 17.1 ug/mL (0-40.0) 01/15/19 20:11 Active Medications - Current Medications Current Medications: Generic Name Dose Route Start Last Admin Trade Name Freq PRN Reason Stop Dose Admin Acetaminophen 650 mg 01/12/19 00:10 01/16/19 02:13 Tylenol PO 650 mg Q4H PRN Administration Fever >101 Aspirin 81 mg 01/13/19 10:00 01/15/19 10:00 Baby Aspirin PO Not Given QDAY [facility] Atorvastatin Calcium 20 mg 01/12/19 22:00 01/15/19 21:54 Lipitor PO 20 mg QHS MOOSE Administration Dextrose 0 ml 01/11/19 21:19 D50w (25gm) Syringe IV PRN PRN Hypoglycemia Diphenhydramine HCl 25 mg 01/14/19 00:52 01/16/19 00:23 Benadryl PO 25 mg QHS PRN Administration Sleep Heparin Sodium (Porcine) 5,000 unit 01/12/19 10:00 01/15/19 21:58 Heparin SUB-Q 5,000 unit Q12HR MOOSE Administration Cefepime HCl 1 gm in 100 mls @ 200 mls/hr 01/12/19 06:00 01/16/19 05:45 Maxipime/Ns 1 Gm/100 Ml IV 200 mls/hr Q8HR MOOSE Administration Protocol Vancomycin HCl 1 gm in 250 mls @ 166.667 mls/hr 01/13/19 10:00 01/16/19 09:12 Vancomycin/Ns 1 Gm/250 Ml IV 166.667 mls/hr Q12HR MOOSE Administration Insulin Human Isoph/Insulin Regular 24 unit 01/14/19 17:00 01/16/19 07:50 Humulin 70/30 SUB-Q 24 unit BIDDIAB MOOSE Administration Insulin Human Lispro 0 unit 01/12/19 16:30 01/16/19 07:12 Humalog SUB-Q Not Given ACHS [facility] Protocol Metoprolol Tartrate 25 mg 01/13/19 22:00 01/15/19 21:55 Lopressor PO 25 mg BID MOOSE Administration Oxycodone/Acetaminophen 1 tab 01/14/19 10:53 01/15/19 20:14 Percocet 5/325 PO 1 tab Q6H PRN Administration Pain, Moderate (4-6) Vitamin A/Vitamin D 1 applic 01/13/19 13:00 01/15/19 10:00 Ad Ointment TP Not Given QDAY [facility] Nutrition/Malnutrition Assess - Dietary Evaluation Nutrition/Malnutrition Findings: Nutrition Notes Start: 01/12/19 10:44 Freq: Status: Active Protocol: Document 01/14/19 15:55 RM (Rec: 01/14/19 16:05 RM [id number]) Nutrition Notes Initial or Follow up Reassessment Current Diagnosis Decubitus(Pressure Ulcer), Diabetes,Hypertension Other Pertinent Diagnosis cellulitis, DKA, DM foot wound Current Diet Consistent CHO w/Glucerna BID Labs/Tests A1c 15.2 Pertinent Medications Reviewed Height 5 ft 10 in Weight 87.4 kg [place] Body Weight (kg) 75.45 BMI 27.6 Subjective/Other Information Pt stated that [employer] his appetite was good. Stated that his appetite is good now and that he eats all of his meals. No temporal or orbital wasting . Pt did not seem focused on DM diet education d/t being distracted by wanting to visit with brother in hallway. Pt took handout. Percent of energy/protein needs met: 100%/100% Burn Absent Trauma Absent #1 Nutrition Diagnosis Increased nutrient needs ( specify in comment below) Diagnosis Progress(for reassessment Continues documentation) Is patient on ventilator? No Is Patient Ambulatory and/or Out of Bed No REE-([facility]-confined to bed) 688 Calculation Used for Recommendations [facility] Additional Notes Protein needs are 87-105g (1-1 .2g/kg) Fluid needs are 1ml/kcal Nutrition Intervention Change Diet Order: Cardiac/Consistent CHO Add Supplement/Snack (indicate name/kcal Darryl BID. D/C Glucerna. /protein ) Provides kCal: 190 Provides Protein (gm) 5 Education Handouts Provided Carbohydrate counting for people with diabetes Goal #1 Continue to meet at least 75% of kcal and protein needs Goal #2 Wound healing Anticipated Discharge Needs: Cardiac/consistent CHO Follow-Up By: 01/17/19 Additional Comments Follow for PO and Darryl intakes
[2019-01-16 09:34] VITALS: BP 106/63
--- NOTE | 2019-01-16 11:18 | Discharge Summary ---
Providers - Providers Date of Admission: 01/11/19 23:59 Date of discharge: 01/16/19 Attending physician: NOVA RODRIGUEZ 01/12/19 06:00 Consult to Physician [CONS] Routine Comment: Consulting Provider: ANGELES ANGELA Physician Instructions: Reason For Exam: slurred speech with flatening of nasolabial fold Consult to Wound/ET Nurse [CONS] Routine Reason For Exam: wound eval Speech Therapy Eval for [place] Valve [CONS] Routine Reason For Exam: slurred speech 01/12/19 06:04 Consult to Physician [CONS] Routine Comment: Consulting Provider: SUMMER MARQUEZ Physician Instructions: Reason For Exam: ELEVATED TROPONIN LEVEL 01/12/19 15:01 Consult to Physician [CONS] Urgent Comment: called office/ chari Consulting Provider: ROWENA POE Physician Instructions: Reason For Exam: evaluate right foot 01/12/19 15:10 Consult to Physician [CONS] Urgent Comment: Consulting Provider: ANGELES CHRISTENSEN Physician Instructions: Reason For Exam: evaluate lower extremities 01/12/19 16:34 Occupational Therapy Evaluate and Treat [CONS] Urgent Comment: Reason For Exam: General Weakness Physical Therapy Evaluation and Treat [CONS] Urgent Comment: Reason For Exam: General Weakness 01/13/19 12:51 Consult to Dietitian/Nutrition [CONS] Routine Physician Instructions: Reason For Exam: Reason for Consult: malnutrition, open wounds 01/15/19 17:27 Consult to Physician [CONS] Routine Comment: called answering service/ chari Consulting Provider: GAUTAM LACEY Physician Instructions: Reason For Exam: Diabetic wound cult +ve Enterococcus Primary care physician: KARENA ALDRIDGE Hospitalization Condition: Poor Hospital course: Discharge Diagnosis: --Bilateral ankle and foot cellulitis/diabetic foot infection Continue wound care, IV antibiotics, elevate the limb Vascular/surgery following, Foot x-rays; no evidence of osteomyelitis --Enterococcus wound cultures; continue Vanco cefepime, ID consult --Peripheral Vascular disease: On aspirin and statin, Vascular following Left anterior tibial artery intermittent occlusions on CTA Vascular recommend revascularization, Pt wants to defer until he is discharged and f/u OP --Non-ST elevation IN; nonspecific elevation of cardiac enzymes Continue current cardiac medications, follow echocardiogram, cardiology if needed --Possible acute CVA;slurred speech and left-sided weakness;improved not a candidate for TPA,aspirin and statin ,Neuro evaluated Patient refused MRI studies recommended by neurology --Hyperosmolar nonketotic hyperglycemia; present on admission s/p insulin drip, blood sugars well controlled Accu-Chek sliding scale coverage, long-acting 7030 insulin, ADA diet 07/2018 HbA1c is 10.0, diabetic education, nutrition and education --Insulin-dependent diabetes mellitus; well controlled Accu-Chek sliding scale coverage, Novolin 70/30, 24 units twice a day --Hyponatremia; present on admission, resolved probably pseudohyponatremia, Secondary to hyperglycemia, --History of hypertension; blood pressures well controlled Continue current management, PRN hydralazine --Dyslipidemia; Statin --Severe Malnutrition/nutrition consult, supportive care --DVT prophylaxis; Lovenox --Full code; Disposition: DC-07 LEFT AGAINST MED ADVICE Time spent for discharge: 32 min Exam - Constitutional Vitals: Temp Pulse Resp BP Pulse Ox 98.9 F 103 H 18 106/63 95 01/16/19 07:04 01/16/19 10:00 01/16/19 10:00 01/16/19 09:26 01/16/19 10:00 Plan Follow up with: KARENA ALDRIDGE MD [Primary Care Provider] - 7 Days LISANDRO ALEGRIA MD [Staff Physician] - 7 Days Prescriptions: Amoxicillin/Potassium Clav [Augmentin 875-125 Tablet] 1 each PO BID #20 tablet
--- NOTE | 2019-01-16 11:51 | Consultation ---
History of Present Illness - Reason for Consult Consult date: 01/16/19 - History of Present Illness 68 yo M PMhx DM2, HTN initially admitted with AMS. He lives alone at home but has a ampoule washing machine operator routinely check on him. The ampoule washing machine operator noted on day of admission he was altered with lethargy, and that his foot wound looked bad, with oozing and redness surrounding. He denies any fevers, sweats, chills, or other infective symptoms. He has been seen in the past by multiple [place] doctors, including my colleague Dr. Ma, though from ampoule washing machine operator/family history more recently he was seen by someone in [place] and followed at their office. He is unclear as to what antibiotics he has been treated with in the past, however he does note a history of having a PICC line in and receiving IV antibiotics. Pr esently, he denies any pain in his feet and is alert and oriented. He reportedly would like to leave [place], however his family has concerns about his ability to care for himself at home and to self-administer IV antibiotics. He denies any new symptoms since being admitted. He is currently afebrile, however has a Tmax during this admission to 102.8. His WBC was 13 but now improved to 11. Wound cultures from [facility] foot wound have grown a cid-susceptible Enterococcus faecalis. He denies any penicillin allergies. He is currently receiving vancomycin and cefepime. Blood cultures thus far negative. Past History Past Medical History: diabetes, hypertension, other (? muscular dystrophy ) Past Surgical History: No surgical history Social history: Lives alone Family history: diabetes, hypertension Medications and Allergies Allergies Allergy/AdvReac Type Severity Reaction Status Date / Time codeine Allergy Shortness Verified 01/11/19 20:03 of Breath levofloxacin [From Levaquin] AdvReac Anaphylaxis Verified 01/11/19 20:03 Home Medications Medication Instructions Recorded Confirmed Last Taken Type Pregabalin [Lyrica] 300 mg PO BID 07/24/18 01/11/19 Unknown History Insulin Glargine [Lantus VIAL] 40 units SQ QHS 01/11/19 01/11/19 Unknown History Lotensin Hct 20-12.5 mg Tablet 1 tab PO DAILY 01/11/19 01/11/19 Unknown History Amoxicillin/Potassium Clav 1 each PO BID #20 tablet 01/16/19 Unknown Rx [Augmentin 875-125 Tablet] Active Meds: Active Medications Acetaminophen (Tylenol) 650 mg PO Q4H PRN PRN Reason: Fever >101 Last Admin: 01/16/19 02:13 Dose: 650 mg Documented by: Aspirin (Baby Aspirin) 81 mg PO QDAY [facility] Last Admin: 01/16/19 09:22 Dose: 81 mg Documented by: Atorvastatin Calcium (Lipitor) 20 mg PO QHS [facility] Last Admin: 01/15/19 21:54 Dose: 20 mg Documented by: Dextrose (D50w (25gm) Syringe) 0 ml IV PRN PRN PRN Reason: Hypoglycemia Diphenhydramine HCl (Benadryl) 25 mg PO QHS PRN PRN Reason: Sleep Last Admin: 01/16/19 00:23 Dose: 25 mg Documented by: Heparin Sodium (Porcine) (Heparin) 5,000 unit SUB-Q Q12HR [facility] Last Admin: 01/16/19 09:22 Dose: 5,000 unit Documented by: Cefepime HCl (Maxipime/Ns 1 Gm/100 Ml) 1 gm in 100 mls @ 200 mls/hr IV Q8HR [facility]; Protocol Last Admin: 01/16/19 05:45 Dose: 200 mls/hr Documented by: Vancomycin HCl (Vancomycin/Ns 1 Gm/250 Ml) 1 gm in 250 mls @ 166.667 mls/hr IV Q12HR [facility] Last Admin: 01/16/19 09:12 Dose: 166.667 mls/hr Documented by: Insulin Human Isoph/Insulin Regular (Humulin 70/30) 24 unit SUB-Q BIDDIAB [facility] Last Admin: 01/16/19 07:50 Dose: 24 unit Documented by: Insulin Human Lispro (Humalog) 0 unit SUB-Q ACHS [facility]; Protocol Last Admin: 01/16/19 07:12 Dose: Not Given Documented by: Metoprolol Tartrate (Lopressor) 25 mg PO BID [facility] Last Admin: 01/16/19 09:26 Dose: 25 mg Documented by: Oxycodone/Acetaminophen (Percocet 5/325) 1 tab PO Q6H PRN PRN Reason: Pain, Moderate (4-6) Last Admin: 01/15/19 20:14 Dose: 1 tab Documented by: Vitamin A/Vitamin D (Ad Ointment) 1 applic TP QDAY [facility]OOSE Last Admin: 01/16/19 09:22 Dose: 1 applic Documented by: Review of Systems Constitutional: no weight loss, no fever, no chills, no sweats Ears, nose, mouth and throat: no sinus pain, no dysphagia, no sore throat Cardiovascular: no chest pain, no palpitations, no rapid/irregular heart beat, no edema Respiratory: no cough, no shortness of breath, no dyspnea on exertion Gastrointestinal: no abdominal pain, no nausea, no vomiting, no diarrhea Genitourinary Male: no dysuria, no hematuria, no flank pain, no discharge Musculoskeletal: no low back pain, no shooting leg pain, no leg numbness/tingling Integumentary: redness, sores (feet) Neurological: weakness, confusion, no numbness Endocrine: no cold intolerance, no heat intolerance, no polyphagia, no excessive thirst Hematologic/Lymphatic: no easy bruising, no easy bleeding, no lymphadenopathy Physical Examination - Physical Exam Narrative exam: Constitutional: Alert, cooperative. No acute distress. Obese. Head, Ears, Nose: Normocephalic, atraumatic. External ears, nose normal Eyes: Conjunctivae/corneas clear. No icterus. No ptosis. Neck: Supple, no meningeal signs Oral: dentition fair, no thrush Cardiovascular: S1, S2 normal. Respiratory: Good air entry, clear to auscultation bilaterally GI: Soft, non-tender; bowel sounds normal. No peritoneal signs Musculoskeletal: R foot with wound medial aspect of great toe, dorsum of foot. Skin: No rash or abscess Hem/Lymphatic: No palpable cervical or supraclavicular nodes. No lymphangitis Psych: Mood ok. Affect normal Neurological: Awake, alert, oriented to place and person. No gross abnormality - Constitutional Vitals: Vital Signs Temp Pulse Resp BP Pulse Ox 98.9 F 103 H 18 106/63 95 01/16/19 07:04 01/16/19 10:00 01/16/19 10:00 01/16/19 09:26 01/16/19 10:00 Temperature -Last 24 Hours Temperature 98.9 F Temperature 98.5 F Temperature 101.3 F Temperature 98.5 F Temperature 100.0 F Temperature 99.8 F Results - Labs CBC & Chem 7: 01/15/19 05:29 01/15/19 05:29 Labs: Abnormal lab results 01/15/19 01/16/19 Range/Units 16:14 07:10 POC Glucose 153 H 114 H (70-105) Assessment and Plan Cultures: BCx: NGTD Wound Cx: Enterococcus faecalis - cid sensitive A/P: 68 yo M PMHx DM2, HTN, foot ulcers admitted with am infected foot wound and AMS 1. Infected diabetic foot wound - Cultures with cid-sensitive Enterococcus as the only thing growing. At this point while inpatient I would stop the vanc and cefepime and change to amp/sulbactam in order to cover anaerobes. If he is amenable to staying inpatient I would order an MRI of the R foot (appears to be worse) as I have a high suspicion for osteomyelitis in the toe, or would order as outpatient to be followed up in our office. If he leaves I would discharge on PO Augmentin 875/125mg BID. He should follow up in our clinic. 2. AMS - now resolved 3. DM2 4. HTN 5. PVD 6. HLD Recs: While inpatient stop cefepime and vancomycin Start amp/sulbactam 1.5g q6h Inpatient MRI of R foot, or if discharged/AMA please order as outpatient If discharged/AMA prior to inpatient workup please send on amp/clavulanate 875/125mg PO BID for 2 weeks Will schedule follow up in our clinic with his preferred provider, Dr. Ma. Thank you for the consult, we will continue to follow along. MD Anyi [facility] ([facility] C: [phone] O: [phone] F: [phone]
--- NOTE | 2019-01-16 14:26 | Vascular Lab Report ---
ELADIO EVALUATION HISTORY: Lower extremity pain. Evaluate for peripheral arterial disease. Sores on bilateral toes/feet for several months. COMPARISON: none TECHNIQUE: Lower extremity segmental arterial doppler pressure and PVR analysis were obtained at [facility] lower extremity levels bilaterally. FINDINGS: Normal arterial waveforms are seen throughout both lower extremities. RIGHT: Brachial artery peak-systolic pressure: 107 mmHg Posterior tibialis: 96 mmHg Dorsalis pedis: 116 mmHg ELADIO: 1.08 LEFT: Brachial artery peak-systolic pressure: 107 mmHg Posterior tibialis: 115 mmHg noncompressible. Dorsalis pedis: 255 mmHg noncompressible. ELADIO: Could not be calculated because the lower extremity vessels were noncompressible. TBI's could not be generated due to sores on the bilateral toes. IMPRESSION: 1. No sonographically significant arterial gradient is seen within either lower extremity. Signer Name: Cheo Steward Jr, MD Signed: 01/16/2019 2:21 PM Workstation Name: [id number]
[2019-01-17 11:52] LABS: Vitamin D, 25-OH, D2 <4 ng/mL
== END 2019-01-16 11:50 | disposition left against medical advice (07) | DRG 64 ==
LOC: ED 19:57 → CC1 23:59 → 2B-ACE 01-12 17:47
PROVIDERS: ADMIT Internal Medicine; ATTEND Internal Medicine
DX: I63.9 Cerebral infarction, unspecified (principal); E11.00 Type 2 diabetes mellitus with hyperosmolarity without nonketotic hyperglycemic-hyperosmolar coma (NKHHC); I21.4 Non-ST elevation (NSTEMI) myocardial infarction; E43 Unspecified severe protein-calorie malnutrition; G93.41 Metabolic encephalopathy; L03.115 Cellulitis of right lower limb; L03.116 Cellulitis of left lower limb; G81.94 Hemiplegia, unspecified affecting left nondominant side; E87.1 Hypo-osmolality and hyponatremia; I42.9 Cardiomyopathy, unspecified; R65.10 Systemic inflammatory response syndrome (SIRS) of non-infectious origin without acute organ dysfunction; E11.51 Type 2 diabetes mellitus with diabetic peripheral angiopathy without gangrene; R47.81 Slurred speech; I10 Essential (primary) hypertension; E78.5 Hyperlipidemia, unspecified; I77.1 Stricture of artery; Z60.2 Problems related to living alone; E86.0 Dehydration; R00.0 Tachycardia, unspecified; E11.42 Type 2 diabetes mellitus with diabetic polyneuropathy; R47.1 Dysarthria and anarthria; E11.621 Type 2 diabetes mellitus with foot ulcer; S91.101A Unspecified open wound of right great toe without damage to nail, initial encounter; B02.9 Zoster without complications; Z79.4 Long term (current) use of insulin; Z88.1 Allergy status to other antibiotic agents; Z88.5 Allergy status to narcotic agent; Z79.899 Other long term (current) drug therapy; Y93.89 Activity, other specified; Y92.89 Other specified places as the place of occurrence of the external cause; Y99.8 Other external cause status
CPT/HCPCS: 36415; 70450; 71045; 75635; 80048; 80053; 80061; 80202; 82140; 82306; 82550; 82553; 82607; 82747; 82805; 82962; 83036; 83735; 84100; 84134; 84439; 84443; 84450; 84460; 84480; 84484; 85007; 85025; 85610; 85670; 85730; 87040; 87076; 87116; 87186; 93005; 93010; 93306; 93880; 93922; 93925; 93970; G0378; A6250; A9270-GY; J0692; J1644; J1815; J1885; J3370; J3480; J7030; J7040; J7050; Q9967

== ENCOUNTER 2019-01-17 19:29 | Emergency (ER) | payer MEDICARE ==
[2019-01-17 20:20] LABS: Hematocrit 30.9 % (35.5-45.6); Hemoglobin 10.3 gm/dl (11.8-15.2); Mean Corpuscular HGB Conc 33 % (32-34); Mean Corpuscular Volume 84 fl (84-94); Platelet Count 252 K/mm3 (140-440); Red Cell Distribution Width 16.3 % (13.2-15.2)
--- NOTE | 2019-01-17 20:23 | Emergency Department Report ---
ED General Adult HPI - General Chief complaint: Nausea/Vomiting/Diarrhea Stated complaint: GENERAL ILLINESS Time Seen by Provider: 01/17/19 20:07 Source: patient, EMS Mode of arrival: Stretcher Limitations: No Limitations - History of Present Illness Initial comments: Mr. Ellis is a 68 yo male with hx of DM, PVD, who presents with generalized malaise. Hsi foot "locked up". He states that he just feels bad. MIld cough. Has had redness, ulcers on feet for 3-4 months. Mild discomfort at both feet. +diarrhea -: Gradual, days(s) (1) Severity scale (0 -10): 9 Consistency: constant Improves with: none Worsens with: none Associated Symptoms: malaise - Related Data Home Medications Medication Instructions Recorded Confirmed Last Taken Pregabalin [Lyrica] 300 mg PO BID 07/24/18 01/11/19 Unknown Insulin Glargine [Lantus VIAL] 40 units SQ QHS 01/11/19 01/11/19 Unknown Lotensin Hct 20-12.5 mg Tablet 1 tab PO DAILY 01/11/19 01/11/19 Unknown Previous Rx's Medication Instructions Recorded Last Taken Type Amoxicillin/Potassium Clav 1 each PO BID #20 tablet 01/16/19 Unknown Rx [Augmentin 875-125 Tablet] Allergies Allergy/AdvReac Type Severity Reaction Status Date / Time codeine Allergy Shortness Verified 01/11/19 20:03 of Breath levofloxacin [From Levaquin] AdvReac Anaphylaxis Verified 01/11/19 20:03 ED Review of Systems ROS: Stated complaint: GENERAL ILLINESS Other details as noted in HPI Comment: All other systems reviewed and negative Constitutional: malaise Respiratory: cough Skin: lesions ED Past Medical Hx - Past Medical History Previous Medical History?: Yes Hx Hypertension: Yes Hx Diabetes: Yes Additional medical history: PVD - Surgical History Past Surgical History?: Yes Additional Surgical History: [id number] disc surgery in 1988 - Social History Smoking Status: Never Smoker - Medications Home Medications: Home Medications Medication Instructions Recorded Confirmed Last Taken Type Pregabalin [Lyrica] 300 mg PO BID 07/24/18 01/11/19 Unknown History Insulin Glargine [Lantus VIAL] 40 units SQ QHS 01/11/19 01/11/19 Unknown History Lotensin Hct 20-12.5 mg Tablet 1 tab PO DAILY 01/11/19 01/11/19 Unknown History Amoxicillin/Potassium Clav 1 each PO BID #20 tablet 01/16/19 Unknown Rx [Augmentin 875-125 Tablet] ED Physical Exam - General Limitations: No Limitations General appearance: alert, in no apparent distress - Head Head exam: Present: atraumatic, normocephalic - Eye Eye exam: Present: normal appearance - ENT ENT exam: Present: mucous membranes moist - Neck Neck exam: Present: normal inspection, full ROM - Respiratory Respiratory exam: Present: normal lung sounds bilaterally. Absent: respiratory distress, wheezes, rales, rhonchi, stridor - Cardiovascular Cardiovascular Exam: Present: regular rate, normal rhythm, normal heart sounds. Absent: rubs, gallop - GI/Abdominal GI/Abdominal exam: Present: soft, normal bowel sounds. Absent: distended, tenderness, guarding, rebound - Rectal Rectal exam: Present: deferred - Extremities Exam Extremities exam: Present: other (brown material on feet, edematous toes, erythematous feet with ulcers bilaterally) - Back Exam Back exam: Present: normal inspection - Neurological Exam Neurological exam: Present: alert, oriented X3 - Psychiatric Psychiatric exam: Present: normal affect, normal mood - Skin Skin exam: Present: warm. Absent: rash ED Course Vital Signs 01/17/19 01/17/19 19:42 19:45 Temperature 99.1 F 98.8 F Pulse Rate 82 Respiratory 19 Rate Blood Pressure 106/60 [Right] O2 Sat by Pulse 100 Oximetry ED Medical Decision Making - Lab Data Result diagrams: 01/17/19 19:56 01/17/19 19:56 - Radiology Data Radiology results: report reviewed distal toe associated skin changes of acute infection destruction indicating of osteomyelitis Chest radiograph: No acute process - Medical Decision Making Mr. Yun was admitted and left AGAINST MEDICAL ADVICE. He was admitted for infected foot and altered mental status. Culture showedenterococcus, infectious disease consultation concerned osteomyelitis, According to ID consultation, Unasyn recommended. This antibiotic initiated in the ED. Discharge home to follow up with Augmentin after consultation with hospitalist on-call. Critical care attestation.: If time is entered above; I have spent that time in minutes in the direct care of this critically ill patient, excluding procedure time. ED Disposition Clinical Impression: Diabetic foot infection, Cellulitis Disposition: DC-01 TO HOME OR SELFCARE Is pt being admited?: No Does the pt Need Aspirin: No Additional Instructions: Please see your infectious disease physician Dr. Ma. Continue Augmentin. Referrals: LISANDRO AELGRIA MD [Staff Physician] - 3-5 Days
[2019-01-17 20:43] LABS: Alanine Aminotransferase 14 units/L (7-56); Albumin 2.6 g/dL (3.9-5); BUN/Creatinine Ratio 7; Blood Urea Nitrogen 6 mg/dL (9-20); Calcium 8.1 mg/dL (8.4-10.2); Hemolysis Index 2
[2019-01-17 21:24] LABS: Basophils % (Manual) 0 % (0.0-1.8); Total Cells Counted 100
[2019-01-17 21:25] LABS: RBC Morphology Normal
[2019-01-17] MEDS ORDERED: UNASYN/NS 1.5 GM/50 ML 1.5 GM/50 ML BAG IV ONE (21:31)
--- NOTE | 2019-01-17 21:33 | XRay Report ---
RIGHT FOOT, 3 VIEWS 01/17/2019 INDICATION / CLINICAL INFORMATION: foot infection. COMPARISON: None available. FINDINGS: Cortical destruction of the tuft of the distal phalanx of great toe with associated skin changes sugg esting acute infection/osteomyelitis. No evidence of fracture or dislocation. Signer Name: Nikko Styles MD Signed: 01/17/2019 9:29 PM Workstation Name: [email or web address]
--- NOTE | 2019-01-17 21:34 | XRay Report ---
CHEST 1 VIEW INDICATION / CLINICAL INFORMATION: cough. COMPARISON: None available. FINDINGS: SUPPORT DEVICES: None. HEART / MEDIASTINUM: No significant abnormality. LUNGS / PLEURA: No significant pulmonary or pleural abnormality. No pneumothorax. ADDITIONAL FINDINGS: No significant additional findings. IMPRESSION: 1. No acute findings. Signer Name: Nikko Styles MD Signed: 01/17/2019 9:30 PM Workstation Name: [id number]
[2019-01-18 00:53] VITALS: BP 119/67
[2019-01-18] MEDS ORDERED: TYLENOL ONE (12:04)
[2019-01-18] MEDS ORDERED: TYLENOL PO ONE (12:05)
== END 2019-01-18 12:30 | disposition home or self-care (01) ==
LOC: ED 19:29
DX: E11.621 Type 2 diabetes mellitus with foot ulcer (principal); L03.116 Cellulitis of left lower limb; L03.115 Cellulitis of right lower limb; I73.9 Peripheral vascular disease, unspecified; I10 Essential (primary) hypertension; Z79.899 Other long term (current) drug therapy; Z88.5 Allergy status to narcotic agent; Z88.8 Allergy status to other drugs, medicaments and biological substances
CPT/HCPCS: 36415; 71045; 73620; 80053; 85007; 85025; 96365; 99284; J0295

== ENCOUNTER 2019-01-19 09:55 | Outpatient (CLI) | payer MEDICARE ==
[2019-01-19] MEDS ORDERED: XYLOCAINE TOPICAL 4% TP ONE (09:58)
[2019-01-20] MEDS ORDERED: AD OINTMENT TP SCH (10:00)
== END 2019-01-19 09:56 | disposition home or self-care (01) ==
LOC: WOUND 09:55
PROVIDERS: ATTEND Surgery
DX: E11.621 Type 2 diabetes mellitus with foot ulcer (principal); L97.412 Non-pressure chronic ulcer of right heel and midfoot with fat layer exposed; L84 Corns and callosities; I10 Essential (primary) hypertension; F41.9 Anxiety disorder, unspecified; Z79.4 Long term (current) use of insulin
CPT/HCPCS: 11042; G0463; 99215

== ENCOUNTER 2019-07-20 10:14 | Inpatient (IN) | payer MEDICARE ==
[2019-07-20] MEDS ORDERED: DEXTROSE 50% IN WATER (25GM) 50 ML SYRINGE IV PRN (11:00)
[2019-07-20] MEDS: INSULIN LISPRO 100 UNIT/ML SUB-Q SCH ×3 (12:56→23:09)
[2019-07-20 13:28] LABS: Basophils % (Auto) 0.6 % (0.0-1.8); Eosinophils # (Auto) 0.4 K/mm3 (0.0-0.4); Eosinophils % (Auto) 5.7 % (0.0-4.3); Hemoglobin 12.3 gm/dl (11.8-15.2); Lymphocytes # (Auto) 1.5 K/mm3 (1.2-5.4); Lymphocytes % (Auto) 21.1 % (13.4-35.0); Mean Corpuscular HGB Conc 33 % (32-34); Mean Corpuscular Volume 85 fl (84-94); Monocytes # (Auto) 0.4 K/mm3 (0.0-0.8); Monocytes % (Auto) 5.9 % (0.0-7.3); Platelet Count 207 K/mm3 (140-440); Red Blood Count 4.33 M/mm3 (3.65-5.03)
[2019-07-20 13:51] LABS: BUN/Creatinine Ratio 14; Blood Urea Nitrogen 13 mg/dL (9-20); Calcium 9.4 mg/dL (8.4-10.2); Hemolysis Index 2
--- NOTE | 2019-07-20 15:31 | History and Physical Report ---
History of Present Illness Date of examination: 07/20/19 Date of admission: 07/20/19 11:13 Chief complaint: b/l LE pain and swelling History of present illness: This is a 69 y/o male with h/o diabetes, hypertension presented with redness swelling and pain of bilateral lower extremity. Patient states that the symptom has been going on for a month but for last week it is getting worse. Patient also complains of difficulty walking. He does not have any oozing or discharge from his lower extremities. He went to his primary care physician office and he noted to have fever and lower extremity cellulitis. Patient was called for direct admission for further evaluation and management. His lab work-up is pending. Patient is admitted for further management. Past medical History: h/o insulin-dependent diabetes mellitus type 2, hypertension hyperlipidemia Past surgical History: none Social History: Lives alone, denies any smoking, drinking and elicit drug abuse. Family History: Significant for diabetes Review of System: Constitutional: + fever, + chills, no weight loss Ears, eyes, nose, mouth and throat: no nasal congestion, no nasal discharge, no sinus pressure, no vision change, no red eye. Neck: No neck pain or rigidity. Cardiovascular: No chest pain, no orthopnea, no palpitations, no leg swelling Respiratory: No shortness of breath, no cough, no congestion, no wheezing Gastrointestinal: no abdominal pain, no nausea, no vomiting Genitourinary : no dysuria, no hematuria Musculoskeletal: no joint swelling or muscle ache Integumentary: + Extensive bilateral lower extremities swelling pain and redness Neurological: no parathesias, no numbness, no tingling Endocrine: no cold or heat intolerance, no polyuria or polydipsia Hematologic/Lymphatic: no easy bruising, no easy bleeding, no gland swelling Allergic/Immunologic: no urticaria, no angioedema. Past History Past Medical History: diabetes, hypertension, hyperlipidemia Past Surgical History: No surgical history Social history: other (occational marijuana). denies: smoking, alcohol abuse, prescription drug abuse Family history: other (father has h/o ALS ) Medications and Allergies Allergies Allergy/AdvReac Type Severity Reaction Status Date / Time codeine Allergy Shortness Verified 01/11/19 20:03 of Breath levofloxacin [From Levaquin] AdvReac Anaphylaxis Verified 01/11/19 20:03 Home Medications Medication Instructions Recorded Confirmed Last Taken Type Pregabalin [Lyrica] 300 mg PO BID 07/24/18 07/21/19 Unknown History Insulin Glargine [Lantus VIAL] 40 units SQ QHS 01/11/19 07/21/19 Unknown History Lotensin Hct 20-12.5 mg Tablet 1 tab PO DAILY 01/11/19 07/21/19 Unknown History Active Meds: Active Medications Dextrose (D50w (25gm) Syringe) 50 ml IV Q30MIN PRN; Protocol PRN Reason: Hypoglycemia Ceftriaxone Sodium (Rocephin/Ns 1 Gm/50 Ml) 1 gm in 50 mls @ 100 mls/hr IV Q12HR MOOSE; Protocol Insulin Human Lispro (Humalog) 0 unit SUB-Q ACHS MOOSE; Protocol Last Admin: 07/20/19 12:56 Dose: 4 unit Documented by: Exam - Physical Exam Narrative exam: GENERAL: Elderly white male lying on bed appeared to be in no discomfort. HEENT: Normocephalic. Atraumatic. No conjunctival congestion or icterus. Patient has moist mucous membranes. NECK: Supple. Trachea midline. CHEST/LUNGS: Clear to auscultated bilaterally, breathing nonlabored. No wheezes crackles or rhonchi. HEART/CARDIOVASCULAR: Regular in rate and rhythm. S1 and S2 positive. ABDOMEN: Abdomen is soft, nontender. Patient has normal bowel sounds. SKIN: There is no rash. Warm and dry. NEURO: No focal motor deficit. Follows command. MUSCULOSKELETAL: No joint effusion or tenderness. EXTRIMITY: + Extensive bilateral lower extremities swelling tenderness and erythrema from toes up to knees PSYCH: Cooperative. - Constitutional Vitals: Temp Pulse Resp BP Pulse Ox 99.0 F 99 H 18 119/78 96 07/20/19 12:24 07/20/19 12:24 07/20/19 12:24 07/20/19 12:24 07/20/19 12:24 Results - Labs CBC & Chem 7: 07/21/19 11:21 07/21/19 11:21 Labs: Abnormal lab results 07/20/19 07/20/19 07/20/19 Range/Units 12:28 12:57 12:57 Eos % (Auto) 5.7 H (0.0-4.3) % Glucose 349 H (75-100) mg/dL POC Glucose 325 H (70-105) Assessment and Plan b/l LE cellulites with presumed sepsis -We will get CBC BMP, blood culture -We will place the patient on IV antibiotics -We will monitor vitals DM type 2 uncontrolled -We will place the patient on ADA diet, sliding scale of insulin and home regimen of long-acting insulin dose HLD, will continue home dose of statin HTN, will resume his home medications, monitor BP DVT prophylaxis, will put him on Lovenox
[2019-07-20] MEDS ORDERED: BENAZEPRIL PO SCH (15:45)
[2019-07-20] MEDS ORDERED: HYDROCHLOROTHIAZIDE PO SCH (15:45)
[2019-07-20] MEDS: LISINOPRIL 20 MG TAB PO SCH (18:24)
[2019-07-20] MEDS: cefTRIAXone/NS 1 GM/50 ML 1 GM/50 ML BAG IV SCH ×2 (18:24→23:09)
[2019-07-20] MEDS: hydroCHLOROthiazide 12.5 MG CAP PO SCH (18:25)
[2019-07-20] MEDS ORDERED: NON-FORMULARY EACH (Pregabalin [Lyrica] 300 MG) PO SCH (22:00)
[2019-07-20] MEDS: ENOXAPARIN 40 MG/0.4 ML INJ SUB-Q SCH (23:01)
[2019-07-20] MEDS: PREGABALIN 75 MG CAP PO SCH (23:01)
[2019-07-20] MEDS: INSULIN GLARGINE 100 UNITS/ML SUB-Q SCH (23:06)
[2019-07-21] MEDS: diphenhydrAMINE 25 MG CAP PO PRN (00:17)
[2019-07-21] MEDS: INSULIN LISPRO 100 UNIT/ML SUB-Q SCH ×4 (09:54→21:54)
[2019-07-21] MEDS: PREGABALIN 75 MG CAP PO SCH ×2 (09:55→21:36)
[2019-07-21] MEDS: hydroCHLOROthiazide 12.5 MG CAP PO SCH (09:57)
[2019-07-21] MEDS: LISINOPRIL 20 MG TAB PO SCH (09:58)
[2019-07-21] MEDS: cefTRIAXone/NS 1 GM/50 ML 1 GM/50 ML BAG IV SCH ×2 (10:17→21:37)
[2019-07-21] MEDS ORDERED: SODIUM CHLORIDE 0.9% 500 ML 500 ML IV ONE (10:52)
[2019-07-21] MEDS ORDERED: VANCOMYCIN 1,750 MG in SODIUM CHLORIDE 0.9% 500 ML 500 ML IV ONE (11:00)
[2019-07-21] MEDS ORDERED: ONDANSETRON 4 MG/2 ML INJ IV PRN (11:15)
[2019-07-21 11:36] LABS: Hematocrit 36.2 % (35.5-45.6); Hemoglobin 12.3 gm/dl (11.8-15.2); Mean Corpuscular HGB Conc 34 % (32-34); Mean Corpuscular Volume 84 fl (84-94); Platelet Count 204 K/mm3 (140-440); Red Blood Count 4.29 M/mm3 (3.65-5.03); Red Cell Distribution Width 14.9 % (13.2-15.2)
[2019-07-21 11:59] LABS: BUN/Creatinine Ratio 9; Blood Urea Nitrogen 11 mg/dL (9-20); Calcium 8.7 mg/dL (8.4-10.2); Hemolysis Index 13
[2019-07-21] MEDS: ACETAMINOPHEN 325 MG TAB PO PRN ×2 (12:18→18:38)
--- NOTE | 2019-07-21 14:38 | Progress Note ---
Assessment and Plan b/l LE cellulites with sepsis -Patient continues to have fever, blood culture pending -Continue Rocephin, will also add vancomycin -Continue to monitor vitals Hypotension, could be from sepsis versus volume depletion -Continue IV fluid for now, hold all BP meds DM type 2 uncontrolled -on ADA diet, sliding scale of insulin and home regimen of long-acting insulin dose -A1c 13.8 Nausea vomiting, continue Zofran as needed HLD, on statin HTN, monitor BP DVT prophylaxis, will put him on Lovenox Subjective Date of service: 07/21/19 Interval history: Patient seen and examined. Medical records and medication list reviewed. No acute event overnight noted by the RN. Patient continued to spike fever since morning, had an episode of vomiting He now appears very lethargic, blood pressure at low 90s Did not tolerate breakfast this morning very well Patient brother at bedside updated Objective - Exam Narrative Exam: GENERAL: Elderly white male lying on bed appeared to be very lethargic. HEENT: Normocephalic. Atraumatic. No conjunctival congestion or icterus. Patient has moist mucous membranes. NECK: Supple. Trachea midline. CHEST/LUNGS: Clear to auscultated bilaterally, breathing nonlabored. No wheezes crackles or rhonchi. HEART/CARDIOVASCULAR: Regular in rate and rhythm. S1 and S2 positive. ABDOMEN: Abdomen is soft, nontender. Patient has normal bowel sounds. SKIN: There is no rash. Warm and dry. NEURO: No focal motor deficit. MUSCULOSKELETAL: No joint effusion or tenderness. EXTRIMITY: + Extensive bilateral lower extremities swelling tenderness and erythrema from toes up to knees PSYCH: Cooperative. - Constitutional Vitals: Vital Signs - 12hr 07/21/19 07/21/19 07/21/19 05:25 09:58 11:48 Temperature 102.9 F H 101.3 F H Pulse Rate 128 H 125 H 116 H Respiratory 20 22 Rate Blood Pressure 184/94 96/56 87/50 O2 Sat by Pulse 90 92 Oximetry 07/21/19 14:14 Temperature 100.6 F H Pulse Rate 113 H Respiratory 22 Rate Blood Pressure 131/78 O2 Sat by Pulse 93 Oximetry - Labs CBC & Chem 7: 07/21/19 11:21 07/21/19 11:21 Labs: Abnormal lab results 07/20/19 07/20/19 07/20/19 Range/Units 12:57 16:53 21:52 Carbon Dioxide (22-30) mmol/L Glucose (75-100) mg/dL POC Glucose 348 H 328 H (70-105) Hemoglobin A1c 13.8 H (4-6) % 07/21/19 07/21/19 07/21/19 Range/Units 08:22 11:21 12:01 Carbon Dioxide 21 L (22-30) mmol/L Glucose 272 H (75-100) mg/dL POC Glucose 219 H 241 H (70-105) Hemoglobin A1c (4-6) %
[2019-07-21] MEDS ORDERED: [UNRECOGNIZED DRUG - OTHER] TP SCH (15:00)
--- NOTE | 2019-07-21 16:42 | Vascular Lab Report ---
DUPLEX DOPPLER LOWER EXTREMITY VEINS, BILATERAL INDICATION: swelling. TECHNIQUE: Duplex doppler imaging was performed through the veins of both lower extremities using venous roni william and other maneuvers. COMPARISON: None available. FINDINGS: Right Common femoral vein: Negative. Right Superficial femoral vein: Negative. Right Popliteal vein: Negative. Right Calf veins: Negative. Left Common femoral vein: Negative. Left Superficial femoral vein: Negative. Left Popliteal vein: Negative. Left Calf veins: Negative. Additional findings: None. IMPRESSION: Negative for DVT. Signer Name: Juni Schofield MD Signed: 07/21/2019 4:37 PM Workstation Name: [id number]
[2019-07-21] MEDS ORDERED: HYDROCORTISONE 1% CREAM 28.4GM TP PRN (18:25)
[2019-07-21] MEDS: SODIUM CHLORIDE 0.9% 1000 ML 1,000 ML IV SCH (18:37)
[2019-07-21] MEDS: ENOXAPARIN 40 MG/0.4 ML INJ SUB-Q SCH (21:36)
[2019-07-21] MEDS: INSULIN GLARGINE 100 UNITS/ML SUB-Q SCH (21:36)
[2019-07-21] MEDS: VANCOMYCIN/NS 1 GM/250 ML 1 GM/250 ML BAG IV SCH (23:34)
[2019-07-22] MEDS: ACETAMINOPHEN 325 MG TAB PO PRN ×2 (01:08→12:27)
[2019-07-22] MEDS ORDERED: SODIUM CHLORIDE 0.9% 500 ML 500 ML IV ONE (01:22)
[2019-07-22] MEDS: INSULIN LISPRO 100 UNIT/ML SUB-Q SCH ×4 (09:21→22:03)
[2019-07-22] MEDS: PREGABALIN 75 MG CAP PO SCH ×2 (09:25→21:20)
[2019-07-22] MEDS: cefTRIAXone/NS 1 GM/50 ML 1 GM/50 ML BAG IV SCH ×2 (09:26→21:19)
[2019-07-22] MEDS: SODIUM CHLORIDE 0.9% 1000 ML 1,000 ML IV SCH (12:15)
[2019-07-22] MEDS: VANCOMYCIN/NS 1 GM/250 ML 1 GM/250 ML BAG IV SCH (12:18)
--- NOTE | 2019-07-22 13:33 | Progress Note ---
Assessment and Plan b/l LE cellulites with sepsis -Patient continues to have high grade fever, blood culture neGATIVE - NEGATIVE LE DOPPLER, will order LE CT -Continue Rocephin AND vancomycin -Continue to monitor vitals, consult ID Hypotension, could be from sepsis versus volume depletion -Continue IV fluid for now, hold all BP meds DM type 2 uncontrolled -on ADA diet, sliding scale of insulin and home regimen of long-acting insulin dose -A1c 13.8 Nausea vomiting, continue Zofran as needed HLD, on statin HTN, monitor BP DVT prophylaxis, on Lovenox Disposition: need inpt stay for sepsis with high fever and hypotension Subjective Date of service: 07/22/19 Interval history: Patient seen and examined. Medical records and medication list reviewed. No acute event overnight noted by the RN. Patient continued to spike high fever, blood pressure remained low no vomiting today, communicates better today discussed plan of care with RN Objective - Exam Narrative Exam: GENERAL: Elderly white male lying on bed appeared in no distress but looks sick. HEENT: Normocephalic. Atraumatic. No conjunctival congestion or icterus. Patient has moist mucous membranes. NECK: Supple. Trachea midline. CHEST/LUNGS: Clear to auscultated bilaterally, breathing nonlabored. No wheezes crackles or rhonchi. HEART/CARDIOVASCULAR: Regular in rate and rhythm. S1 and S2 positive. ABDOMEN: Abdomen is soft, nontender. Patient has normal bowel sounds. SKIN: There is no rash. Warm and dry. NEURO: No focal motor deficit. MUSCULOSKELETAL: No joint effusion or tenderness. EXTRIMITY: + Extensive bilateral lower extremities swelling tenderness and erythrema from toes up to knees PSYCH: Cooperative. - Constitutional Vitals: Vital Signs - 12hr 07/22/19 07/22/19 07/22/19 02:08 03:14 03:16 Temperature 100.7 F H Pulse Rate 115 H Respiratory 22 22 Rate Blood Pressure 110/62 O2 Sat by Pulse 90 Oximetry - Labs CBC & Chem 7: 07/21/19 11:21 07/23/19 08:55 Labs: Abnormal lab results 07/21/19 07/21/19 07/22/19 Range/Units 17:29 21:19 04:43 POC Glucose 204 H 237 H 215 H (70-105) 07/22/19 07/22/19 Range/Units 08:21 12:36 POC Glucose 170 H 237 H (70-105)
--- NOTE | 2019-07-22 14:20 | XRay Report ---
CHEST 1 VIEW INDICATION / CLINICAL INFORMATION: fever. COMPARISON: None available. FINDINGS: SUPPORT DEVICES: None. HEART / MEDIASTINUM: No significant abnormality. LUNGS / PLEURA: No significant pulmonary or pleural abnormality. No pneumothorax. ADDITIONAL FINDINGS: No significant additional findings. IMPRESSION: 1. No acute findings. Signer Name: Nikko Styles MD Signed: 07/22/2019 2:15 PM Workstation Name: [id number]
[2019-07-22] MEDS: ENOXAPARIN 40 MG/0.4 ML INJ SUB-Q SCH (21:20)
[2019-07-22] MEDS: INSULIN GLARGINE 100 UNITS/ML SUB-Q SCH (22:03)
[2019-07-23] MEDS: VANCOMYCIN/NS 1 GM/250 ML 1 GM/250 ML BAG IV SCH ×2 (00:12→15:18)
[2019-07-23 00:38] LABS: Bacteria,Urine 1+ /HPF (Negative); Bilirubin,Urine NEG (Negative); Blood,Urine SM (Negative); Color,Urine Amber (Yellow); Mucus,Urine FEW /HPF; Urobilinogen,Urine < 2.0 mg/dL (<2.0)
[2019-07-23] MEDS: SODIUM CHLORIDE 0.9% 1000 ML 1,000 ML IV SCH ×2 (02:48→16:27)
[2019-07-23] MEDS: PREGABALIN 75 MG CAP PO SCH ×2 (07:12→13:16)
[2019-07-23] MEDS ORDERED: PREGABALIN 75 MG CAP PO SCH (11:27)
--- NOTE | 2019-07-23 11:27 | Consultation ---
History of Present Illness - Reason for Consult Consult date: 07/23/19 pascual leg cellulitis Requesting physician: JEAN MANDUJANO - History of Present Illness 68 y/o male with history of HTN, DM,? muscular dystrophy, psych disorder, chronic leg edema, previous bilateral cellulitis, PVD w/o occlusive disease, well known to our service during previous admission in January 2019 for bilateral cellulitis with presumed right great toe osteomyelitis, wound culture grew Katherine taylor, patient left AMA; admitted on 07/20/2019 due to a-week history of worsening bilateral leg edema, erythema, itching with severe scratching morel, unable to walk. In the ED, temp 99, HR 99, R 18, BP 119/78, O2 96. WBC 7.9. Creat 0.6. UA neg. Blood culture 07/20/2019 neg. CXR neg. ID consulted for bilateral cellulitis. Review of Systems: unable to obtain Past History Past Medical History: diabetes, hypertension, hyperlipidemia Past Surgical History: No surgical history Social history: other (occational marijuana). denies: smoking, alcohol abuse, prescription drug abuse Family history: other (father has h/o ALS ) Medications and Allergies Allergies Allergy/AdvReac Type Severity Reaction Status Date / Time codeine Allergy Shortness Verified 01/11/19 20:03 of Breath levofloxacin [From Levaquin] AdvReac Anaphylaxis Verified 01/11/19 20:03 Home Medications Medication Instructions Recorded Confirmed Last Taken Type Pregabalin [Lyrica] 300 mg PO BID 07/24/18 07/21/19 Unknown History Insulin Glargine [Lantus VIAL] 40 units SQ QHS 01/11/19 07/21/19 Unknown History Lotensin Hct 20-12.5 mg Tablet 1 tab PO DAILY 01/11/19 07/21/19 Unknown History Active Meds: Active Medications Acetaminophen (Tylenol) 650 mg PO Q4H PRN PRN Reason: Pain MILD(1-3)/Fever >100.5/CRESPO Last Admin: 07/22/19 12:27 Dose: 650 mg Documented by: Dextrose (D50w (25gm) Syringe) 50 ml IV Q30MIN PRN; Protocol PRN Reason: Hypoglycemia Diphenhydramine HCl (Benadryl) 25 mg PO QHS PRN PRN Reason: Itching Last Admin: 07/21/19 00:17 Dose: 25 mg Documented by: Enoxaparin Sodium (Enoxaparin) 40 mg SUB-Q QDAY@2200 MOOSE Last Admin: 07/22/19 21:20 Dose: 40 mg Documented by: Hydrocortisone Acetate (Hydrocortisone Cr) 1 applic TP Q8H PRN PRN Reason: Skin Irritation Ceftriaxone Sodium (Rocephin/Ns 1 Gm/50 Ml) 1 gm in 50 mls @ 100 mls/hr IV Q12HR MOOSE; Protocol Last Admin: 07/22/19 21:19 Dose: 100 mls/hr Documented by: Vancomycin HCl (Vancomycin/Ns 1 Gm/250 Ml) 1 gm in 250 mls @ 166.667 mls/hr IV Q12H MOOSE; Protocol Last Admin: 07/23/19 00:12 Dose: 166.667 mls/hr Documented by: Sodium Chloride (Nacl 0.9% 1000 Ml) 1,000 mls @ 100 mls/hr IV DIRECT MOOSE Last Admin: 07/23/19 02:48 Dose: 100 mls/hr Documented by: Insulin Glargine (Lantus) 40 units SUB-Q QHS MOOSE Last Admin: 07/22/19 22:03 Dose: 40 units Documented by: Insulin Human Lispro (Humalog) 0 unit SUB-Q ACHS [facility]; Protocol Last Admin: 07/22/19 22:03 Dose: 3 unit Documented by: Ondansetron HCl (Zofran) 4 mg IV Q8H PRN PRN Reason: N/V unrelieved by Reglan Pregabalin (Pregabalin) 300 mg PO BID [facility] Last Admin: 07/23/19 07:12 Dose: Not Given Documented by: Physical Examination - Physical Exam Narrative exam: General appearance: Alert in NAD Eyes: anicteric sclerae, moist conjunctivae; no lid-lag; PERRLA HENT: Atraumatic; oropharynx clear with moist mucous membranes and no mucosal ulcerations/no oral thrush; normal hard and soft palate. Lungs: CTA, with normal respiratory effort and no intercostal retractions CV: RRR no murmur Abdomen: Soft, non-tender; no masses or hepatosplenomegaly Extremities: +pascual marked leg edema, erythema and scratching morel Skin: No rash. Psych: Appropriate affect, alert and oriented to person, place and time. Neuro: alert and oriented x 2. Moving all extermities - Constitutional Vitals: Vital Signs Temp Pulse Resp BP Pulse Ox 98.8 F 101 H 24 95/48 89 07/23/19 05:50 07/23/19 05:50 07/23/19 05:50 07/23/19 05:50 07/23/19 05:50 Temperature -Last 24 Hours Temperature 98.8 F Temperature 100.0 F Temperature 101.7 F Temperature 103.0 F Results - Labs CBC & Chem 7: 07/21/19 11:21 07/23/19 08:55 Labs: Abnormal lab results 07/22/19 07/22/19 07/22/19 Range/Units 08:21 12:36 17:48 Chloride (98-107) mmol/L Carbon Dioxide (22-30) mmol/L Creatinine (0.8-1.5) mg/dL Glucose (75-100) mg/dL POC Glucose 170 H 237 H 291 H (70-105) Calcium (8.4-10.2) mg/dL Urine WBC (Auto) (0.0-6.0) /HPF 07/22/19 07/22/19 07/23/19 Range/Units 21:46 Unknown 07:59 Chloride (98-107) mmol/L Carbon Dioxide (22-30) mmol/L Creatinine (0.8-1.5) mg/dL Glucose (75-100) mg/dL POC Glucose 277 H 108 H (70-105) Calcium (8.4-10.2) mg/dL Urine WBC (Auto) 8.0 H (0.0-6.0) /HPF 07/23/19 Range/Units 08:55 Chloride 107.8 H (98-107) mmol/L Carbon Dioxide 17 L (22-30) mmol/L Creatinine 1.8 H (0.8-1.5) mg/dL Glucose 178 H (75-100) mg/dL POC Glucose (70-105) Calcium 8.0 L (8.4-10.2) mg/dL Urine WBC (Auto) (0.0-6.0) /HPF Assessment and Plan Cultures: blood cx 07/20/2019 no growth Assessment: 68 y/o male with history of HTN, DM,? muscular dystrophy, psych disorder, chronic leg edema, previous bilateral cellulitis, PVD w/o occlusive disease, well known to our service during previous admission in January 2019 for bilateral cellulitis with presumed right great toe osteomyelitis; admitted on 07/20/2019 due to a-week history of worsening bilateral leg edema, erythema, itching with anastasiya re scratching morel: #Sepsis: present on admission with low grade fever, tachycardia,now with high fever; source unclear, likely bilateral legs cellulitis, should r/o influenza/ asp pna, HAP. UA neg. Blood culture 07/20/2019 neg. CXR neg. #Bilateral legs cellulitis: CT shows soft tissue edema no collections #Previous ? right great toe osteomyelitis: not treated, previous admission in January 2019 for bilateral cellulitis with presumed right great toe osteomyelitis, wound culture grew E faecalis, patient left AMA #Uncontrolled diabetes Recommendations: obtain CXR PA/lat repeat blood culture start clindamycin 900 mg IV q 8 hours x 48 hour start cefepime 2g IV q 12 hour continue vancomycin with PK consult wound care consult start tamiflu XR right pascual feet crp if elevated consider MRI feet leg elevation anticipate to d/c on dalvance 1,000 mg IV x 1 then 500 mg IV weekly x 4 dose if right great toe osteomyelitis is found, if not only 2 doses (1,000 mg IV x 1 followed by 500 mg IV a week later) for cellulitis. Order sent to [facility] sample case Will follow. Jaclyn Martin MD Infectious Diseases [facility] M [phone] O [phone]
[2019-07-23] MEDS: INSULIN LISPRO 100 UNIT/ML SUB-Q SCH ×4 (11:29→23:16)
--- NOTE | 2019-07-23 12:10 | Progress Note ---
Assessment and Plan b/l LE cellulites with sepsis -Patient continues to have high grade fever, blood culture neGATIVE - NEGATIVE LE DOPPLER, will order LE CT -Continue Rocephin AND vancomycin -Continue to monitor vitals, consult ID /Previous ? right great toe osteomyelitis: not treated, previous admission in January 2019 for bilateral cellulitis with presumed right great toe osteomyelitis, wound culture grew E faecalis, patient left AMA. will follow ID recommendation. CT LE ordered MELYSSA, likely ATN - renal function getting worse even pt on iv fluid - could be from severe sepsis and hypertension - will monitor, renally dose meds, nephrology consult Hypotension, could be from sepsis versus volume depletion -Continue IV fluid for now, hold all BP meds DM type 2 uncontrolled -on ADA diet, sliding scale of insulin and home regimen of long-acting insulin dose -A1c 13.8 Nausea vomiting, continue Zofran as needed HLD, on statin HTN, monitor BP DVT prophylaxis, on Lovenox Disposition: need inpt stay for sepsis with high fever and hypotension Subjective Date of service: 07/23/19 Interval history: Patient seen and examined. Medical records and medication list reviewed. No acute event overnight noted by the RN. Patient continued to spike high fever, blood pressure remained low no vomiting today, communicates better but appears very weak discussed plan of care with RN and brother at bedside Objective - Exam Narrative Exam: GENERAL: Elderly white male lying on bed appeared in no distress but looks sick. HEENT: Normocephalic. Atraumatic. No conjunctival congestion or icterus. Patient has moist mucous membranes. NECK: Supple. Trachea midline. CHEST/LUNGS: Clear to auscultated bilaterally, breathing nonlabored. No wheezes crackles or rhonchi. HEART/CARDIOVASCULAR: Regular in rate and rhythm. S1 and S2 positive. ABDOMEN: Abdomen is soft, nontender. Patient has normal bowel sounds. SKIN: There is no rash. Warm and dry. NEURO: No focal motor deficit. MUSCULOSKELETAL: No joint effusion or tenderness. EXTRIMITY: + Extensive bilateral lower extremities swelling tenderness and erythrema from toes up to knees PSYCH: Cooperative. - Constitutional Vitals: Vital Signs - 12hr 07/23/19 05:50 Temperature 98.8 F Pulse Rate 101 H Respiratory 24 Rate Blood Pressure 95/48 O2 Sat by Pulse 89 Oximetry - Labs CBC & Chem 7: 07/24/19 10:36 07/24/19 07:36 Labs: Abnormal lab results 07/22/19 07/22/19 07/22/19 Range/Units 08:21 12:36 17:48 Chloride (98-107) mmol/L Carbon Dioxide (22-30) mmol/L Creatinine (0.8-1.5) mg/dL Glucose (75-100) mg/dL POC Glucose 170 H 237 H 291 H (70-105) Calcium (8.4-10.2) mg/dL Urine WBC (Auto) (0.0-6.0) /HPF 07/22/19 07/22/19 07/23/19 Range/Units 21:46 Unknown 07:59 Chloride (98-107) mmol/L Carbon Dioxide (22-30) mmol/L Creatinine (0.8-1.5) mg/dL Glucose (75-100) mg/dL POC Glucose 277 H 108 H (70-105) Calcium (8.4-10.2) mg/dL Urine WBC (Auto) 8.0 H (0.0-6.0) /HPF 07/23/19 Range/Units 08:55 Chloride 107.8 H (98-107) mmol/L Carbon Dioxide 17 L (22-30) mmol/L Creatinine 1.8 H (0.8-1.5) mg/dL Glucose 178 H (75-100) mg/dL POC Glucose (70-105) Calcium 8.0 L (8.4-10.2) mg/dL Urine WBC (Auto) (0.0-6.0) /HPF
[2019-07-23] MEDS: cefTRIAXone/NS 1 GM/50 ML 1 GM/50 ML BAG IV SCH (12:58)
[2019-07-23] MEDS: PREGABALIN 25 MG CAP PO SCH ×2 (13:00→22:57)
--- NOTE | 2019-07-23 13:08 | Cat Scan Report ---
CT lower extremity RT wo con, CT lower extremity LT wo con INDICATION: Cellulitis. TECHNIQUE: All CT scans at this location are performed using the following dose modulation technique: Automated exposure control. CONTRAST: None. COMPARISON: None available. FINDINGS: Imaging of both lower extremities was performed. There is mild soft tissue inflammation gre atest at the calves right greater than left. Negative for localized fluid collection. The underlying bones are unremarkable. Vascular calcification and a moderate size fat-containing left inguinal hernia are noted. IMPRESSION: 1. Negative for fluid collection or bony destruction. 2. Probable soft tissue cellulitis. 3. Atherosclerotic vascular disease. 4. Moderate size fat-containing left inguinal hernia. Signer Name: Juni Schofield MD Signed: 07/23/2019 1:04 PM Workstation Name: [id number]
[2019-07-23] MEDS: ACETAMINOPHEN 325 MG TAB PO PRN (13:14)
[2019-07-23] MEDS ORDERED: VANCOMYCIN PHARMACY TO DOSE IV SCH (16:00)
[2019-07-23] MEDS ORDERED: VANCOMYCIN/NS 1 GM/250 ML 1 GM/250 ML BAG IV ONE (16:00)
[2019-07-23] MEDS: diphenhydrAMINE 25 MG CAP PO PRN (20:11)
[2019-07-23] MEDS ORDERED: OSELTAMIVIR 75 MG CAP PO SCH (22:00)
[2019-07-23] MEDS: ENOXAPARIN 40 MG/0.4 ML INJ SUB-Q SCH (22:19)
[2019-07-23] MEDS: CEFEPIME/NS 2 GM/100 ML 2 GM/100 ML BAG IV SCH (22:55)
[2019-07-23] MEDS: OSELTAMIVIR PHOSPHATE 30 MG/5 ML ORALSYR PO SCH (22:56)
[2019-07-23] MEDS: INSULIN GLARGINE 100 UNITS/ML SUB-Q SCH (22:58)
[2019-07-23] MEDS: CLINDAMYCIN 600 MG/50 mL 600 MG/50 ML BAG IV SCH (23:09)
--- NOTE | 2019-07-23 23:11 | XRay Report ---
CHEST 1 VIEW 07/23/2019 10:52 PM INDICATION / CLINICAL INFORMATION: Evaluate for aspiration pneumonia. COMPARISON: One view of the chest from 07/22/2019. FINDINGS: SUPPORT DEVICES: None. HEART / MEDIASTINUM: Stable. LUNGS / PLEURA: Low lung volumes are noted with increased bilateral pulmonary opacities. No significa nt pleural effusion. No pneumothorax. ADDITIONAL FINDINGS: No significant additional findings. IMPRESSION: Increased bilateral pulmonary opacities could represent evolving pneumonia or atelectasis. Signer Name: Fam Smith MD Signed: 07/23/2019 11:07 PM Workstation Name: [id number]
--- NOTE | 2019-07-23 23:14 | XRay Report ---
BILATERAL FEET 2 VIEWS INDICATION / CLINICAL INFORMATION: Possible osteomyelitis of the toes. COMPARISON: None available. FINDINGS: This examination is incomplete due to the patient not cooperating with the technologist. BONES and JOINT(S): No acute fracture or subluxation. There is mild osteoarthritis along the left mid foot with an inferior calcaneal enthesophyte. No significant arthritis of the right foot is seen. No suspicious destructive bony changes. SOFT TISSUES: There is a possible ulceration along the distal and dorsal aspect of one of the left to es seen on the lateral view and not clearly visualized on the AP view. No other wounds are identified . ADDITIONAL FINDINGS: None. IMPRESSION: 1. Possible left toe wound as above. Please correlate with the clinical findings. No radiographic juan dence of osteomyelitis. 2. Additional findings as above. Signer Name: Fam Smith MD Signed: 07/23/2019 11:10 PM Workstation Name: [id number]
[2019-07-24] MEDS: ACETAMINOPHEN 325 MG TAB PO PRN ×2 (01:09→09:14)
[2019-07-24] MEDS: SODIUM CHLORIDE 0.9% 1000 ML 1,000 ML IV SCH (05:42)
[2019-07-24] MEDS: CLINDAMYCIN 600 MG/50 mL 600 MG/50 ML BAG IV SCH ×3 (05:42→21:45)
[2019-07-24] MEDS: INSULIN LISPRO 100 UNIT/ML SUB-Q SCH ×4 (07:30→22:08)
[2019-07-24] MEDS: OSELTAMIVIR PHOSPHATE 30 MG/5 ML ORALSYR PO SCH (09:15)
[2019-07-24] MEDS: CEFEPIME/NS 2 GM/100 ML 2 GM/100 ML BAG IV SCH ×2 (09:15→22:02)
[2019-07-24] MEDS ORDERED: VANCOMYCIN 1,250 MG in SODIUM CHLORIDE 0.9% 250ML 250 ML IV SCH (10:00)
[2019-07-24] MEDS: PREGABALIN 25 MG CAP PO SCH ×2 (10:00→23:23)
[2019-07-24 10:48] LABS: Hemoglobin 10.7 gm/dl (11.8-15.2); Mean Corpuscular HGB Conc 33 % (32-34); Mean Corpuscular Volume 87 fl (84-94); Platelet Count 148 K/mm3 (140-440); Red Blood Count 3.79 M/mm3 (3.65-5.03); Red Cell Distribution Width 15.8 % (13.2-15.2)
[2019-07-24 10:58] LABS: Calcium 7.4 mg/dL (8.4-10.2)
--- NOTE | 2019-07-24 12:29 | Consultation ---
History of Present Illness - Reason for Consult Consult date: 07/24/19 acute renal failure - History of Present Illness The patient is a 68 YO male with history significant for HTN, DM, chronic leg edema, previous bilateral leg cellulitis and PVD w/o occlusive disease who was admitted on 07/20/2019 due to a week history of worsening bilateral leg edema, erythema, itching with severe scratching morel and unable to walk. Patient was a very poor historian. Labs significant for Creat 1.8. Nephrology was consulted for further evaluation. Past History Past Medical History: diabetes, hypertension, hyperlipidemia Past Surgical History: No surgical history Social history: other (occational marijuana). denies: smoking, alcohol abuse, prescription drug abuse Family history: other (father has h/o ALS ) Medications and Allergies Allergies Allergy/AdvReac Type Severity Reaction Status Date / Time codeine Allergy Shortness Verified 01/11/19 20:03 of Breath levofloxacin [From Levaquin] AdvReac Anaphylaxis Verified 01/11/19 20:03 Home Medications Medication Instructions Recorded Confirmed Last Taken Type Pregabalin [Lyrica] 300 mg PO BID 07/24/18 07/21/19 Unknown History Insulin Glargine [Lantus VIAL] 40 units SQ QHS 01/11/19 07/21/19 Unknown History Lotensin Hct 20-12.5 mg Tablet 1 tab PO DAILY 01/11/19 07/21/19 Unknown History Active Meds: Active Medications Acetaminophen (Tylenol) 650 mg PO Q4H PRN PRN Reason: Pain MILD(1-3)/Fever >100.5/CRESPO Last Admin: 07/24/19 09:14 Dose: 650 mg Documented by: Dextrose (D50w (25gm) Syringe) 50 ml IV Q30MIN PRN; Protocol PRN Reason: Hypoglycemia Diphenhydramine HCl (Benadryl) 25 mg PO QHS PRN PRN Reason: Itching Last Admin: 07/23/19 20:11 Dose: 25 mg Documented by: Heparin Sodium (Porcine) (Heparin) 5,000 unit SUB-Q Q12HR MOOSE Hydrocortisone Acetate (Hydrocortisone Cr) 1 applic TP Q8H PRN PRN Reason: Skin Irritation Sodium Chloride (Nacl 0.9% 1000 Ml) 1,000 mls @ 100 mls/hr IV DIRECT MOOSE Last Admin: 07/24/19 05:42 Dose: 100 mls/hr Documented by: Clindamycin HCl (Cleocin 600 Mg/50 Ml) 600 mg in 50 mls @ 100 mls/hr IV Q8HR [facility]; Protocol Stop: 07/25/19 14:29 Last Admin: 07/24/19 05:42 Dose: 100 mls/hr Documented by: Cefepime HCl (Cefepime/Ns 2 Gm/100 Ml) 2 gm in 100 mls @ 200 mls/hr IV Q12HR [facility]; Protocol Last Admin: 07/24/19 09:15 Dose: 200 mls/hr Documented by: Vancomycin HCl 1,250 mg/ (Sodium Chloride) 275 mls @ 166.667 mls/hr IV Q24HR [facility] Last Admin: 07/24/19 09:26 Dose: 166.667 mls/hr Documented by: Insulin Glargine (Lantus) 40 units SUB-Q QHS [facility] Last Admin: 07/23/19 22:58 Dose: 40 units Documented by: Insulin Human Lispro (Humalog) 0 unit SUB-Q ACHS [facility]; Protocol Last Admin: 07/24/19 07:30 Dose: 1 unit Documented by: Ondansetron HCl (Zofran) 4 mg IV Q8H PRN PRN Reason: N/V unrelieved by Emilee Oseltamivir Phosphate (Tamiflu) 30 mg PO BID [facility] Stop: 07/28/19 10:01 Last Admin: 07/24/19 09:15 Dose: 30 mg Documented by: Pregabalin (Pregabalin) 100 mg PO BID [facility] Last Admin: 07/24/19 10:00 Dose: 100 mg Documented by: Review of Systems ROS unobtainable: due to mental status (aminta historian.) Exam - Vital Signs Vital signs: Vital Signs Temp Pulse Resp BP Pulse Ox 99.0 F 99 H 18 119/78 96 07/20/19 12:24 07/20/19 12:24 07/20/19 12:24 07/20/19 12:24 07/20/19 12:24 - General Appearance General appearance: well-developed, well-nourished, appears stated age, other (no distress) EENT: ATNC, PERRL, hearing intact, vision intact Neck: Present: neck supple, trachea midline Respiratory: Clear to Ascultation Heart: regular, S1S2, no murmurs Gastrointestinal: Present: normoactive bowel sounds. Absent: tenderness, dist ended Integumentary: erythema (both legs), other (multiple scratch morel over both LEs noted) Neurologic: alert and oriented x3, other (able to move extremities) Musculoskeletal: Present: other (trace LE edema noted) Psychiatric: cooperative Results - Lab Results 07/24/19 10:36 07/24/19 07:36 Most recent lab results Calcium 7.4 mg/dL (8.4-10.2) L 07/24/19 07:36 Assessment and Plan 1. Acute kidney injury: Likely vasomotor MELYSSA in the setting of sepsis. Urine studies and Renal US ordered. Monitor renal function. Avoid nephrotoxic agents. Meds dosage based on GFR. 2. FEN: Metabolic acidosis, monitor. Replete K. Monitor lytes. 3. Sepsis: Secondary to LE cellulitis. Followed by ID. 4. Hypotension: Continue IV fluids. Monitor BP. 5. DM type 2.
[2019-07-24] MEDS ORDERED: LORazepam 2 MG/ML VIAL IV SCH (13:00)
--- NOTE | 2019-07-24 13:16 | Progress Note ---
Assessment and Plan Cultures: blood cx 07/20/2019 no growth blood Cx pending Flu: negative Assessment: 68 y/o male with history of HTN, DM,? muscular dystrophy, psych disorder, chronic leg edema, previous bilateral cellulitis, PVD w/o occlusive disease, well known to our service during previous admission in January 2019 for bilateral cellulitis with presumed right great toe osteomyelitis; admitted on 07/20/2019 due to a-week history of worsening bilateral leg edema, erythema, itching with severe scratching morel: #Sepsis: present on admission with low grade fever, tachycardia,now with high fever; source unclear, likely bilateral legs cellulitis, Flu negative, CXR with possible evolving PNA. #Bilateral legs cellulitis: CT shows soft tissue edema no collections #Previous ? right great toe osteomyelitis: not treated, previous admission in January 2019 for bilateral cellulitis with presumed right great toe osteomyelitis, wound culture grew E faecalis, patient left AMA #Uncontrolled diabetes Recommendations: Continue clindamycin 900 mg IV q 8 hours x 48 hour (2 of 6 bags completed) Continue cefepime 2g IV q 12 hour continue vancomycin with PK consult wound care consult stopped tamiflu MRI bilateral feet leg elevation anticipate to d/c on dalvance 1,000 mg IV x 1 then 500 mg IV weekly x 4 dose if right great toe osteomyelitis is found, if not only 2 doses (1,000 mg IV x 1 followed by 500 mg IV a week later) for cellulitis. Order sent to [facility] case manager -approved, will update with duration pending MRI of feet to r/o osteomyelitis. Will follow. Iva Beaulieu MD [facility] M: [phone] O: [phone] F: [phone] Subjective Date of service: 07/24/19 Interval history: Febrile to 100.6, normal white count. No new complaints Objective - Exam Narrative Exam: General appearance: Alert in NAD Eyes: anicteric sclerae, moist conjunctivae; no lid-lag; HENT: Atraumatic; oropharynx clear with moist mucous membranes and no mucosal ulcerations/no oral thrush; normal hard and soft palate. Lungs: CTA, with normal respiratory effort and no intercostal retractions CV: RRR no murmur Abdomen: Soft, non-tender; no masses or hepatosplenomegaly Extremities: +pascual marked leg edema, erythema and scratching morel Skin: No rash. Psych: Appropriate affect, alert and oriented to person, place and time. Neuro: alert and oriented x 2. Moving all extermities - Constitutional Vitals: Vital Signs Temp Pulse Resp BP Pulse Ox 98.5 F 85 22 83/55 97 07/24/19 11:53 07/24/19 11:53 07/24/19 11:53 07/24/19 11:53 07/24/19 11:53 Temperature -Last 24 Hours Temperature 98.5 F Temperature 97.8 F Temperature 100.6 F Temperature 97.9 F Temperature 97.9 F - Labs CBC & Chem 7: 07/24/19 10:36 07/24/19 07:36 Labs: Abnormal lab results 07/23/19 07/23/19 07/23/19 Range/Units 17:07 21:27 23:04 Hgb (11.8-15.2) gm/dl Hct (35.5-45.6) % RDW (13.2-15.2) % Potassium (3.6-5.0) mmol/L Chloride (98-107) mmol/L Carbon Dioxide (22-30) mmol/L BUN (9-20) mg/dL Glucose (75-100) mg/dL POC Glucose 157 H 185 H (70-105) Calcium (8.4-10.2) mg/dL C-Reactive Protein 13.00 H (0.00-1.30) mg/dL 07/24/19 07/24/19 07/24/19 Range/Units 07:36 07:41 10:36 Hgb 10.7 L (11.8-15.2) gm/dl Hct 33.0 L (35.5-45.6) % RDW 15.8 H (13.2-15.2) % Potassium 3.3 L (3.6-5.0) mmol/L Chloride 109.3 H (98-107) mmol/L Carbon Dioxide 15 L (22-30) mmol/L BUN 21 H (9-20) mg/dL Glucose 136 H (75-100) mg/dL POC Glucose 158 H (70-105) Calcium 7.4 L (8.4-10.2) mg/dL C-Reactive Protein (0.00-1.30) mg/dL
--- NOTE | 2019-07-24 14:09 | Progress Note ---
Assessment and Plan b/l LE cellulites with sepsis - Patient continues to have fever, blood culture neGATIVE - NEGATIVE LE DOPPLER, LE CT showed cellulitis no fluid collection -Continue cefepime, clindamycin AND vancomycin -Continue to monitor vitals, ID following Febriloe illness, due to sepsis, cont abx Previous ? right great toe osteomyelitis: - not treated, previous admission in January 2019 for bilateral cellulitis with presumed right great toe osteomyelitis, wound culture grew E faecalis, patient left AMA. CT LE showed no abscess, MRI of right foot showed no osteo - will cont MELYSSA, likely ATN - improving slowly - renal function got worse even pt on iv fluid - could be from severe sepsis and hypertension - cont to monitor, renally dose meds, nephrology consult hypokalemia, cont to replete, check mg Hypotension, could be from sepsis versus volume depletion -Continue IV fluid for now, hold all BP meds DM type 2 uncontrolled -on ADA diet, sliding scale of insulin and home regimen of long-acting insulin dose -A1c 13.8 Nausea vomiting, continue Zofran as needed HLD, on statin HTN, monitor BP DVT prophylaxis, on Lovenox Disposition: need inpt stay for sepsis with high fever, hypotension, electrolyte imbalance Subjective Interval history: Patient seen and examined. Medical records and medication list reviewed. No acute event overnight noted by the RN. tolerating diet better, communicates better but appears very weak discussed plan of care with RN and brother at bedside Patient continued to spike fever but low grade today, blood pressure remained low Objective - Exam Narrative Exam: GENERAL: Elderly white male lying on bed appeared in no distress but looks sick. HEENT: Normocephalic. Atraumatic. No conjunctival congestion or icterus. Patient has moist mucous membranes. NECK: Supple. Trachea midline. CHEST/LUNGS: Clear to auscultated bilaterally, breathing nonlabored. No wheezes crackles or rhonchi. HEART/CARDIOVASCULAR: Regular in rate and rhythm. S1 and S2 positive. ABDOMEN: Abdomen is soft, nontender. Patient has normal bowel sounds. SKIN: There is no rash. Warm and dry. NEURO: No focal motor deficit. MUSCULOSKELETAL: No joint effusion or tenderness. EXTRIMITY: + Extensive bilateral lower extremities swelling tenderness and erythrema from toes up to knees PSYCH: Cooperative. - Constitutional Vitals: Vital Signs - 12hr 07/24/19 07/24/19 04:57 11:53 Temperature 97.8 F 98.5 F Pulse Rate 84 85 Respiratory 20 22 Rate Blood Pressure 93/57 83/55 O2 Sat by Pulse 96 97 Oximetry - Labs CBC & Chem 7: 07/24/19 10:36 07/25/19 14:12 Labs: Abnormal lab results 07/23/19 07/23/19 07/23/19 Range/Units 17:07 21:27 23:04 Hgb (11.8-15.2) gm/dl Hct (35.5-45.6) % RDW (13.2-15.2) % Potassium (3.6-5.0) mmol/L Chloride (98-107) mmol/L Carbon Dioxide (22-30) mmol/L BUN (9-20) mg/dL Glucose (75-100) mg/dL POC Glucose 157 H 185 H (70-105) Calcium (8.4-10.2) mg/dL C-Reactive Protein 13.00 H (0.00-1.30) mg/dL 07/24/19 07/24/19 07/24/19 Range/Units 07:36 07:41 10:36 Hgb 10.7 L (11.8-15.2) gm/dl Hct 33.0 L (35.5-45.6) % RDW 15.8 H (13.2-15.2) % Potassium 3.3 L (3.6-5.0) mmol/L Chloride 109.3 H (98-107) mmol/L Carbon Dioxide 15 L (22-30) mmol/L BUN 21 H (9-20) mg/dL Glucose 136 H (75-100) mg/dL POC Glucose 158 H (70-105) Calcium 7.4 L (8.4-10.2) mg/dL C-Reactive Protein (0.00-1.30) mg/dL
[2019-07-24] MEDS ORDERED: POTASSIUM CHLORIDE ER 20 MEQ TAB PO SCH (14:30)
[2019-07-24 16:16] LABS: Creatinine,Urine 101.7 mg/dL (0.1-20.0)
--- NOTE | 2019-07-24 16:43 | Magnetic Resonance Report ---
MRI forefoot without contrast INDICATION: right toe osteo. COMPARISON: Bilateral foot radiographs from yesterday FINDINGS: The exam is limited by lack of fat suppression in the toes and also motion. Despite this l imitation, no gross bone destruction or large soft tissue defect is identified. There is generalized soft tissue swelling about the forefoot along the dorsal soft tissues and the plantar soft tissues as well as the deep musculature. There are degenerative changes which are greatest at the great MTP monique nt, as well. IMPRESSION: Limited exam as above with generalized soft tissue swelling but no gross evidence of ost eomyelitis. Signer Name: Ck Camargo MD Signed: 07/24/2019 4:38 PM Workstation Name: [id number]
[2019-07-24] MEDS: HEPARIN 5,000 UNIT/1 ML VIAL SUB-Q SCH (21:46)
[2019-07-24] MEDS: diphenhydrAMINE 25 MG CAP PO PRN (21:46)
[2019-07-24] MEDS: INSULIN GLARGINE 100 UNITS/ML SUB-Q SCH (22:02)
[2019-07-25] MEDS: SODIUM CHLORIDE 0.9% 1000 ML 1,000 ML IV SCH ×2 (03:14→18:55)
[2019-07-25] MEDS: CLINDAMYCIN 600 MG/50 mL 600 MG/50 ML BAG IV SCH ×2 (05:15→14:38)
[2019-07-25 05:16] LABS: Calcium 7.6 mg/dL (8.4-10.2)
[2019-07-25] MEDS ORDERED: MAGNESIUM SULFATE IV ONE (05:56)
[2019-07-25] MEDS ORDERED: SODIUM CHLORIDE 0.9% IV ONE (05:56)
[2019-07-25] MEDS ORDERED: POTASSIUM CHLORIDE IV ONE (05:56)
[2019-07-25] MEDS ORDERED: POTASSIUM CHLORIDE 10 MEQ 10 MEQ/100 ML BAG IV ONE (05:58)
[2019-07-25] MEDS ORDERED: POTASSIUM CHLORIDE 20 MEQ PACKET FEEDTUBE ONE (06:01)
--- NOTE | 2019-07-25 06:01 | Event Note ---
Date: 07/25/19 potassium 2.7 this am (trending down from 3.3 on 07/24/2019). Ordered potassium replacement. Magnesium 1.6 this am ordered replacement.
[2019-07-25] MEDS: VANCOMYCIN 1,250 MG in SODIUM CHLORIDE 0.9% 250ML 250 ML IV SCH (06:33)
[2019-07-25] MEDS: INSULIN LISPRO 100 UNIT/ML SUB-Q SCH ×4 (07:59→22:05)
--- NOTE | 2019-07-25 09:10 | Ultrasound Report ---
RENAL ULTRASOUND HISTORY: Acute renal failure. Congenital absence of the right kidney. COMPARISON: None. TECHNIQUE: Multiple real-time ultrasonographic grayscale images were obtained of the kidneys and urin meng bladder. FINDINGS: Left kidney: The renal areas are mildly prominent. No hydronephrosis. Kidney measures 15.4 cm. Urinary bladder: No significant abnormality. Additional findings: None. IMPRESSION: 1. No hydronephrosis. 2. Congenital absence of the right kidney and compensatory hypertrophy of the left kidney. 3. Left medical renal disease with mild prominence of the renal pyramids. Signer Name: Teddy Matos MD Signed: 07/25/2019 9:06 AM Workstation Name: [id number]
[2019-07-25] MEDS: HEPARIN 5,000 UNIT/1 ML VIAL SUB-Q SCH ×2 (09:47→21:49)
[2019-07-25] MEDS: PREGABALIN 75 MG CAP PO SCH ×2 (09:50→21:48)
[2019-07-25] MEDS: CEFEPIME/NS 2 GM/100 ML 2 GM/100 ML BAG IV SCH ×2 (09:51→21:49)
[2019-07-25] MEDS: PREGABALIN 25 MG CAP PO SCH ×2 (09:56→21:49)
[2019-07-25] MEDS ORDERED: PHOS-NAK POWDER PACKET PO NR (10:00)
--- NOTE | 2019-07-25 10:48 | Progress Note ---
Assessment and Plan 1. Acute kidney injury: Likely vasomotor MELYSSA in the setting of sepsis. Renal US negative for hydro but shows congenital absence of right kidney and compensatory hypertrophy of left kidney. Monitor renal function. Avoid nephrotoxic agents. Meds dosage based on GFR. 2. FEN: Metabolic acidosis, monitor. Hypokalemia, 2.7 today, replete and monitor. Hypomagnesemia, 1.6 today, replete and monitor. Monitor lytes. 3. Sepsis: Secondary to LE cellulitis. Followed by ID. 4. Hypotension: Continue IV fluids. Monitor BP. 5. DM type 2. Subjective Date of service: 07/25/19 Interval history: Patient was seen and examined at the bedside. No family members present. Patient had no new complaints today. Objective - Exam Narrative Exam: General appearance: well-developed, well-nourished, appears stated age, other (no distress) EENT: ATNC, PERRL, hearing intact, vision intact Neck: Present: neck supple, trachea midline Respiratory: Clear to Ascultation Heart: regular, S1S2, no murmurs Gastrointestinal: Present: normoactive bowel sounds. Absent: tenderness, distended Integumentary: erythema (both legs), other (multiple scratch morel over both LEs noted) Neurologic: alert and oriented x3, other (able to move extremities) Musculoskeletal: Present: other (trace LE edema noted) Psychiatric: cooperative, alert - Vital Signs Vital signs: Vital Signs - 12hr 07/25/19 04:57 Temperature 100.0 F H Pulse Rate 88 Respiratory 16 Rate Blood Pressure 95/54 O2 Sat by Pulse 94 Oximetry - Lab 07/24/19 10:36 07/25/19 04:39 Most recent lab results Calcium 7.6 mg/dL (8.4-10.2) L 07/25/19 04:39 Phosphorus 2.30 mg/dL (2.5-4.5) L 07/25/19 04:39 Magnesium 1.60 mg/dL (1.7-2.3) L 07/25/19 04:39 Urine Creatinine 101.7 mg/dL (0.1-20.0) H 07/24/19 16:00 Urine Sodium 77 mmol/L 07/24/19 16:00 Medications & Allergies - Medications Allergies/Adverse Reactions: Allergies codeine Allergy (Verified 01/11/19 20:03) Shortness of Breath levofloxacin [From Levaquin] Adverse Reaction (Verified 01/11/19 20:03) Anaphylaxis Home Medications: Home Medications Medication Instructions Recorded Confirmed Last Taken Type Pregabalin [Lyrica] 300 mg PO BID 07/24/18 07/21/19 Unknown History Insulin Glargine [Lantus VIAL] 40 units SQ QHS 01/11/19 07/21/19 Unknown History Lotensin Hct 20-12.5 mg Tablet 1 tab PO DAILY 01/11/19 07/21/19 Unknown History Active Medications: Generic Name Dose Route Start Last Admin Trade Name Freq PRN Reason Stop Dose Admin Acetaminophen 650 mg 07/21/19 11:55 07/24/19 09:14 Tylenol PO 650 mg Q4H PRN Administration Pain MILD(1-3)/Fever >100.5/CRESPO Dextrose 50 ml 07/20/19 11:00 D50w (25gm) Syringe IV Q30MIN PRN Hypoglycemia Protocol Diphenhydramine HCl 25 mg 07/20/19 23:30 07/24/19 21:46 Benadryl PO 25 mg QHS PRN Administration Itching Heparin Sodium (Porcine) 5,000 unit 07/24/19 22:00 07/25/19 09:47 Heparin SUB-Q 5,000 unit Q12HR MOOSE Administration Hydrocortisone Acetate 1 applic 07/21/19 18:25 Hydrocortisone Cr TP Q8H PRN Skin Irritation Sodium Chloride 1,000 mls @ 100 mls/hr 07/21/19 12:00 07/25/19 03:14 Nacl 0.9% 1000 Ml IV 100 mls/hr DIRECT MOOSE Administration Clindamycin HCl 600 mg in 50 mls @ 100 mls/hr 07/23/19 22:00 07/25/19 05:15 Cleocin 600 Mg/50 Ml IV 07/25/19 14:29 100 mls/hr Q8HR MOOSE Administration Protocol Cefepime HCl 2 gm in 100 mls @ 200 mls/hr 07/23/19 22:00 07/25/19 09:51 Cefepime/Ns 2 Gm/100 Ml IV 200 mls/hr Q12HR MOOSE Administration Protocol Vancomycin HCl 1,250 mg/ 275 mls @ 166.667 mls/hr 07/25/19 06:00 07/25/19 06:33 Sodium Chloride IV 166.667 mls/hr Q18H MOOSE Administration Potassium Chloride 10 meq in 100 mls @ 100 mls/hr 07/25/19 10:00 Kcl 10meq/100ml IV 07/25/19 12:59 Q1H MOOSE Insulin Glargine 40 units 07/20/19 22:00 07/24/19 22:02 Lantus SUB-Q 40 units QHS MOOSE Administration Insulin Human Lispro 0 unit 07/20/19 11:30 07/25/19 07:59 Humalog SUB-Q Not Given ACHS [facility] Protocol Ondansetron HCl 4 mg 07/21/19 11:15 Zofran IV Q8H PRN N/V unrelieved by Emilee Potassium Phos/Sodium Phos 3 each 07/25/19 10:00 Phos-Nak PO 07/25/19 14:00 ONCE NR Pregabalin 25 mg 07/25/19 10:00 07/25/19 09:56 Pregabalin PO 25 mg BID MOOSE Administration Pregabalin 75 mg 07/25/19 10:00 07/25/19 09:50 Pregabalin PO 75 mg BID MOOSE Administration
[2019-07-25] MEDS: POTASSIUM CHLORIDE 10 MEQ 10 MEQ/100 ML BAG IV SCH ×3 (12:46→15:50)
--- NOTE | 2019-07-25 13:20 | Progress Note ---
Assessment and Plan Cultures: blood cx 07/20/2019 no growth blood Cx pending Flu: negative Assessment: 68 y/o male with history of HTN, DM,? muscular dystrophy, psych disorder, chronic leg edema, previous bilateral cellulitis, PVD w/o occlusive disease, well known to our service during previous admission in January 2019 for bilateral cellulitis with presumed right great toe osteomyelitis; admitted on 07/20/2019 due to a-week history of worsening bilateral leg edema, erythema, itching with severe scratching morel: #Sepsis: present on admission with low grade fever, tachycardia,now with high fever; source unclear, likely bilateral legs cellulitis, Flu negative, CXR with possible evolving PNA. #Bilateral legs cellulitis: CT shows soft tissue edema no collections #Previous ? right great toe osteomyelitis: not treated, previous admission in January 2019 for bilateral cellulitis with presumed right great toe osteomyelitis, wound culture grew E faecalis, patient left AMA #Uncontrolled diabetes Recommendations: Continue clindamycin 900 mg IV q 8 hours x 48 hour (stop date in place) Continue cefepime 2g IV q 12 hour continue vancomycin with PK consult wound care consult leg elevation anticipate to d/c on dalvance 2 doses (1,000 mg IV x 1 followed by 500 mg IV a week later) for cellulitis. Order sent to correctional case records supervisor -approved, will have medication shipped to office. Please let me know when discharging so appointment can be made for infusion. Will follow. Iva Beaulieu MD [facility] ([facility] M: [phone] O: [phone] F: [phone] Subjective Date of service: 07/25/19 Interval history: Afebrile, normal white count. No new complaints. Imaging personally reviewed: MRI: No evidence of osteomyelitis. Objective - Exam Narrative Exam: General appearance: Alert in NAD Eyes: anicteric sclerae, moist conjunctivae; no lid-lag; HENT: Atraumatic; oropharynx clear with moist mucous membranes Lungs: CTA, with normal respiratory effort and no intercostal retractions CV: RRR no murmur Abdomen: Soft, non-tender; no masses or hepatosplenomegaly Extremities: +pascual marked leg edema, erythema and scratching morel Skin: No rash. Psych: Appropriate affect, alert and oriented to person, place and time. Neuro: alert and oriented x 2. Moving all extermities - Constitutional Vitals: Vital Signs Temp Pulse Resp BP Pulse Ox 98.5 F 76 18 108/66 96 07/25/19 12:05 07/25/19 12:05 07/25/19 12:05 07/25/19 12:05 07/25/19 12:05 Temperature -Last 24 Hours Temperature 98.5 F Temperature 100.0 F Temperature 97.6 F Temperature 98.5 F - Labs CBC & Chem 7: 07/24/19 10:36 07/25/19 04:39 Labs: Abnormal lab results 07/22/19 07/24/19 07/24/19 Range/Units 16:00 16:00 16:32 Potassium (3.6-5.0) mmol/L Chloride (98-107) mmol/L Carbon Dioxide (22-30) mmol/L POC Glucose 121 H (70-105) Calcium (8.4-10.2) mg/dL Phosphorus (2.5-4.5) mg/dL Magnesium (1.7-2.3) mg/dL Urine WBC (Auto) 8.0 H (0.0-6.0) /HPF Urine Creatinine 101.7 H (0.1-20.0) mg/dL 07/24/19 07/25/19 07/25/19 Range/Units 21:02 04:39 11:23 Potassium 2.7 L* (3.6-5.0) mmol/L Chloride 111.3 H (98-107) mmol/L Carbon Dioxide 18 L (22-30) mmol/L POC Glucose 153 H 174 H (70-105) Calcium 7.6 L (8.4-10.2) mg/dL Phosphorus 2.30 L (2.5-4.5) mg/dL Magnesium 1.60 L (1.7-2.3) mg/dL Urine WBC (Auto) (0.0-6.0) /HPF Urine Creatinine (0.1-20.0) mg/dL
[2019-07-25 14:50] LABS: Calcium 7.6 mg/dL (8.4-10.2)
--- NOTE | 2019-07-25 15:23 | Progress Note ---
Assessment and Plan b/l LE cellulites with sepsis - Patient continues to have fever, blood culture neGATIVE - NEGATIVE LE DOPPLER, LE CT showed cellulitis no fluid collection -Continue cefepime, clindamycin AND vancomycin -Continue to monitor vitals, ID following Febrile illness, due to sepsis, cont abx Previous ? right great toe osteomyelitis: - not treated, previous admission in January 2019 for bilateral cellulitis with presumed right great toe osteomyelitis, wound culture grew E faecalis, patient left AMA. CT LE showed no abscess, MRI of right foot showed no osteo - will cont MELYSSA, likely ATN - improving slowly - renal function got worse even pt on iv fluid - could be from severe sepsis and hypertension - cont to monitor, renally dose meds, nephrology consult hypokalemia, 2.7 this am, cont to replete, hypomagnesemia, replete Hypotension, could be from sepsis versus volume depletion -Continue IV fluid for now, hold all BP meds DM type 2 uncontrolled -on ADA diet, sliding scale of insulin and home regimen of long-acting insulin dose -A1c 13.8 Nausea vomiting, continue Zofran as needed HLD, on statin HTN, monitor BP DVT prophylaxis, on Lovenox Disposition: need inpt stay for sepsis with high fever, hypotension, electrolyte imbalance. Possible d/c tomorrow if electrolytes, Cr improves and BP stable Subjective Date of service: 07/25/19 Interval history: Patient seen and examined. Medical records and medication list reviewed. No acute event overnight noted by the RN. discussed plan of care with RN and brother at bedside temperature trending down, blood pressure remained low Objective - Exam Narrative Exam: GENERAL: Elderly white male lying on bed appeared in no distress but looks sick. HEENT: Normocephalic. Atraumatic. No conjunctival congestion or icterus. Patient has moist mucous membranes. NECK: Supple. Trachea midline. CHEST/LUNGS: Clear to auscultated bilaterally, breathing nonlabored. No wheezes crackles or rhonchi. HEART/CARDIOVASCULAR: Regular in rate and rhythm. S1 and S2 positive. ABDOMEN: Abdomen is soft, nontender. Patient has normal bowel sounds. SKIN: There is no rash. Warm and dry. NEURO: No focal motor deficit. MUSCULOSKELETAL: No joint effusion or tenderness. EXTRIMITY: + Extensive bilateral lower extremities swelling tenderness and erythrema from toes up to knees PSYCH: Cooperative. - Constitutional Vitals: Vital Signs - 12hr 07/25/19 07/25/19 04:57 12:05 Temperature 100.0 F H 98.5 F Pulse Rate 88 76 Respiratory 16 18 Rate Blood Pressure 95/54 108/66 O2 Sat by Pulse 94 96 Oximetry - Labs CBC & Chem 7: 07/24/19 10:36 07/25/19 14:12 Labs: Abnormal lab results 07/22/19 07/24/19 07/24/19 Range/Units 16:00 16:00 16:32 Potassium (3.6-5.0) mmol/L Chloride (98-107) mmol/L Carbon Dioxide (22-30) mmol/L Glucose (75-100) mg/dL POC Glucose 121 H (70-105) Calcium (8.4-10.2) mg/dL Phosphorus (2.5-4.5) mg/dL Magnesium (1.7-2.3) mg/dL Urine WBC (Auto) 8.0 H (0.0-6.0) /HPF Urine Creatinine 101.7 H (0.1-20.0) mg/dL 07/24/19 07/25/19 07/25/19 Range/Units 21:02 04:39 11:23 Potassium 2.7 L* (3.6-5.0) mmol/L Chloride 111.3 H (98-107) mmol/L Carbon Dioxide 18 L (22-30) mmol/L Glucose (75-100) mg/dL POC Glucose 153 H 174 H (70-105) Calcium 7.6 L (8.4-10.2) mg/dL Phosphorus 2.30 L (2.5-4.5) mg/dL Magnesium 1.60 L (1.7-2.3) mg/dL Urine WBC (Auto) (0.0-6.0) /HPF Urine Creatinine (0.1-20.0) mg/dL 07/25/19 Range/Units 14:12 Potassium 3.1 L (3.6-5.0) mmol/L Chloride 110.9 H (98-107) mmol/L Carbon Dioxide 18 L (22-30) mmol/L Glucose 142 H (75-100) mg/dL POC Glucose (70-105) Calcium 7.6 L (8.4-10.2) mg/dL Phosphorus (2.5-4.5) mg/dL Magnesium (1.7-2.3) mg/dL Urine WBC (Auto) (0.0-6.0) /HPF Urine Creatinine (0.1-20.0) mg/dL
[2019-07-25] MEDS ORDERED: MAGNESIUM SULFATE 1 GM in SODIUM CHLORIDE 0.9% 50 ML IV ONE (16:00)
[2019-07-25] MEDS: diphenhydrAMINE 25 MG CAP PO PRN (21:54)
[2019-07-25] MEDS: ACETAMINOPHEN 325 MG TAB PO PRN (21:54)
[2019-07-25] MEDS: INSULIN GLARGINE 100 UNITS/ML SUB-Q SCH (22:06)
[2019-07-26] MEDS: VANCOMYCIN 1,250 MG in SODIUM CHLORIDE 0.9% 250ML 250 ML IV SCH ×2 (04:50→05:35)
[2019-07-26] MEDS: INSULIN LISPRO 100 UNIT/ML SUB-Q SCH ×2 (08:26→12:00)
[2019-07-26 08:40] LABS: Hemoglobin 10.5 gm/dl (11.8-15.2)
[2019-07-26 09:01] LABS: Calcium 7.6 mg/dL (8.4-10.2)
[2019-07-26] MEDS: CEFEPIME/NS 2 GM/100 ML 2 GM/100 ML BAG IV SCH (09:31)
[2019-07-26] MEDS: PREGABALIN 25 MG CAP PO SCH (09:34)
[2019-07-26] MEDS: PREGABALIN 75 MG CAP PO SCH (09:34)
[2019-07-26] MEDS: HEPARIN 5,000 UNIT/1 ML VIAL SUB-Q SCH (09:35)
[2019-07-26] MEDS: SODIUM CHLORIDE 0.9% 1000 ML 1,000 ML IV SCH (09:40)
[2019-07-26] MEDS ORDERED: MAGNESIUM OXIDE 400 MG TAB PO SCH (10:00)
[2019-07-26] MEDS ORDERED: POTASSIUM CHLORIDE ER 20 MEQ TAB PO SCH (10:00)
[2019-07-26] MEDS: POTASSIUM CHLORIDE 10 MEQ 10 MEQ/100 ML BAG IV SCH ×2 (10:07→11:23)
[2019-07-26] MEDS ORDERED: PHOS-NAK POWDER PACKET PO NR (11:00)
[2019-07-26 12:17] VITALS: BP 100/64
--- NOTE | 2019-07-26 12:45 | Discharge Summary ---
Providers - Providers Date of Admission: 07/21/19 14:28 Date of discharge: 07/26/19 Attending physician: JEAN MANDUJANO 07/20/19 15:33 Consult to Wound/ET Nurse [CONS] Routine Reason For Exam: wound eval 07/20/19 15:43 Physical Therapy Evaluation and Treat [CONS] Routine Comment: Reason For Exam: placement 07/20/19 21:04 Consult to Wound/ET Nurse [CONS] Routine Reason For Exam: wound eval 07/22/19 13:30 Consult to Physician [CONS] Routine Comment: Consulting Provider: GAUTAM LACEY Physician Instructions: Reason For Exam: persistent fever 07/23/19 12:10 Physical Therapy Evaluation and Treat [CONS] Routine Comment: Reason For Exam: placement 07/23/19 21:42 Consult to Case Management [CONS] Stat Services Needed at Discharge: Other Notified:: classification clerk Additional Physician Instructions: [facility] Bilateral legs cellulitis/presumed right foot osteomyelitis Infuse: dalvance 1,000 mg IV x 1 then 500 mg IV weekly x 4 doses if right great toe osteomyelitis is found, if not only 2 doses for cellulitis. Labs: CBC, CRP, AST, ALT, creat weekly Send labs to [phone] 07/24/19 10:17 Consult to Physician [CONS] Routine Comment: Consulting Provider: ROBINSON LANCE Physician Instructions: Reason For Exam: MELYSSA Primary care physician: SUMA MALAVE Hospitalization Hospital course: This is a 69 y/o male with h/o diabetes, hypertension presented with redness swelling and pain of bilateral lower extremity. Patient states that the symptom has been going on for a month but for last week it is getting worse. Patient also complains of difficulty walking. He does not have any oozing or discharge from his lower extremities. He went to his primary care physician office and he noted to have fever and lower extremity cellulitis. Patient was called for direct admission for further evaluation and management. His lab work-up is pending. Patient is admitted for further management. Discharge Diagnosis and Mx: b/l LE cellulites with sepsis - Patient continues to have fever, blood culture neGATIVE - NEGATIVE LE DOPPLER, LE CT showed cellulitis no fluid collection -placed on cefepime, clindamycin AND vancomycin -Id recommended : d/c on dalvance 2 doses (1,000 mg IV x 1 followed by 500 mg IV a week later) for cellulitis. will complete at ID office Febrile illness, due to sepsis, cont abx Previous ? right great toe osteomyelitis: - not treated, previous admission in January 2019 for bilateral cellulitis with presumed right great toe osteomyelitis, wound culture grew E faecalis, patient left AMA. CT LE showed no abscess, MRI of right foot showed no osteo - will cont MELYSSA, likely ATN - improving slowly - renal function got worse even pt on iv fluid - could be from severe sepsis and hypertension - cont to monitor, renally dose meds, nephrology consult hypokalemia, 2.7 this am, cont to replete, hypomagnesemia, replete Hypotension, could be from sepsis versus volume depletion -Continue IV fluid for now, hold all BP meds DM type 2 uncontrolled -on ADA diet, sliding scale of insulin and home regimen of long-acting insulin dose -A1c 13.8 Nausea vomiting, continue Zofran as needed HLD, on statin HTN, monitor BP DVT prophylaxis, on Lovenox Disposition: home with Physical exam GENERAL: Elderly white male lying on bed appeared in no distress but looks sick. HEENT: Normocephalic. Atraumatic. No conjunctival congestion or icterus. Patient has moist mucous membranes. NECK: Supple. Trachea midline. CHEST/LUNGS: Clear to auscultated bilaterally, breathing nonlabored. No wheezes crackles or rhonchi. HEART/CARDIOVASCULAR: Regular in rate and rhythm. S1 and S2 positive. ABDOMEN: Abdomen is soft, nontender. Patient has normal bowel sounds. SKIN: There is no rash. Warm and dry. NEURO: No focal motor deficit. MUSCULOSKELETAL: No joint effusion or tenderness. EXTRIMITY: + Extensive bilateral lower extremities swelling tenderness and erythrema from toes up to knees PSYCH: Cooperative. Disposition: DC-30 STILL A PATIENT Time spent for discharge: 34 minutes Core Measure Documentation - Palliative Care Palliative Care/ Comfort Measures: Not Applicable - Core Measures Any of the following diagnoses?: none Exam - Constitutional Vitals: Temp Pulse Resp BP Pulse Ox 98.9 F 84 18 100/64 95 07/26/19 11:53 07/26/19 11:53 07/26/19 11:53 07/26/19 11:53 07/26/19 11:53 Plan Activity: advance as tolerated Weight Bearing Status: Weight Bear as Tolerated Diet: diabetic Special Instructions: record blood sugar diary Additional Instructions: Need to complete dalvance 2 doses (1,000 mg IV x 1 followed by 500 mg IV a week later) for cellulitis. will complete at ID office Follow up with: SUMA MALAVE MD [Primary Care Provider] - 7 Days Prescriptions: Potassium Chloride [K-Dur] 40 meq PO QDAY #7 tablet Magnesium Oxide [Mag-Ox] 400 mg PO QDAY #7 tablet Pregabalin 75 mg PO BID #60 capsule
--- NOTE | 2019-07-26 14:00 | Progress Note ---
Assessment and Plan 1. Acute kidney injury: Likely vasomotor MELYSSA in the setting of sepsis. Renal US negative for hydro but shows congenital absence of right kidney and compensatory hypertrophy of left kidney. Monitor renal function. Avoid nephrotoxic agents. Meds dosage based on GFR. 2. FEN: Metabolic acidosis, monitor. Hypokalemia, improved, 3.1 today, replete and monitor. Hypomagnesemia, improved, 1.9 today, continue PO mag oxide and monitor. Monitor lytes. 3. Sepsis: Secondary to LE cellulitis. Followed by ID. 4. Hypotension: Continue IV fluids. Monitor BP. 5. DM type 2. Subjective Date of service: 07/26/19 Interval history: Patient was seen and examined at the bedside. No family members present. Patient had no new complaints today but expressed that he wants to go home. Objective - Exam Narrative Exam: General appearance: well-developed, well-nourished, appears stated age, other (no distress) EENT: ATNC, PERRL, hearing intact, vision intact Neck: Present: neck supple, trachea midline Respiratory: Clear to Ascultation Heart: regular, S1S2, no murmurs Gastrointestinal: Present: normoactive bowel sounds. Absent: tenderness, distended Integumentary: erythema (both legs), other (multiple scratch morel over both LEs noted) Neurologic: alert and oriented x3, other (able to move extremities) Musculoskeletal: Present: other (trace LE edema noted) Psychiatric: cooperative, alert - Vital Signs Vital signs: Vital Signs - 12hr 07/26/19 07/26/19 05:09 11:53 Temperature 97.5 F L 98.9 F Pulse Rate 71 84 Respiratory 18 18 Rate Blood Pressure 116/55 100/64 O2 Sat by Pulse 94 95 Oximetry - Lab 07/26/19 08:01 07/26/19 07:56 Most recent lab results Calcium 7.6 mg/dL (8.4-10.2) L 07/26/19 07:56 Phosphorus 2.30 mg/dL (2.5-4.5) L 07/26/19 07:56 Magnesium 1.90 mg/dL (1.7-2.3) 07/26/19 07:56 Urine Creatinine 101.7 mg/dL (0.1-20.0) H 07/24/19 16:00 Urine Sodium 77 mmol/L 07/24/19 16:00 Medications & Allergies - Medications Allergies/Adverse Reactions: Allergies codeine Allergy (Verified 01/11/19 20:03) Shortness of Breath levofloxacin [From Levaquin] Adverse Reaction (Verified 01/11/19 20:03) Anaphylaxis Home Medications: Home Medications Medication Instructions Recorded Confirmed Last Taken Type Insulin Glargine [Lantus VIAL] 40 units SQ QHS 01/11/19 07/21/19 Unknown History Magnesium Oxide [Mag-Ox] 400 mg PO QDAY #7 tablet 07/26/19 Unknown Rx Potassium Chloride [K-Dur] 40 meq PO QDAY #7 tablet 07/26/19 Unknown Rx Pregabalin 75 mg PO BID #60 capsule 07/26/19 Unknown Rx Active Medications: Generic Name Dose Route Start Last Admin Trade Name Freq PRN Reason Stop Dose Admin Acetaminophen 650 mg 07/21/19 11:55 07/25/19 21:54 Tylenol PO 650 mg Q4H PRN Administration Pain MILD(1-3)/Fever >100.5/CRESPO Dextrose 50 ml 07/20/19 11:00 D50w (25gm) Syringe IV Q30MIN PRN Hypoglycemia Protocol Diphenhydramine HCl 25 mg 07/20/19 23:30 07/25/19 21:54 Benadryl PO 25 mg QHS PRN Administration Itching Heparin Sodium (Porcine) 5,000 unit 07/24/19 22:00 07/26/19 09:35 Heparin SUB-Q 5,000 unit Q12HR MOOSE Administration Hydrocortisone Acetate 1 applic 07/21/19 18:25 Hydrocortisone Cr TP Q8H PRN Skin Irritation Sodium Chloride 1,000 mls @ 100 mls/hr 07/21/19 12:00 07/26/19 09:40 Nacl 0.9% 1000 Ml IV 100 mls/hr DIRECT MOOSE Administration Cefepime HCl 2 gm in 100 mls @ 200 mls/hr 07/23/19 22:00 07/26/19 09:31 Cefepime/Ns 2 Gm/100 Ml IV 200 mls/hr Q12HR MOOSE Administration Protocol Vancomycin HCl 1,250 mg/ 275 mls @ 166.667 mls/hr 07/27/19 00:00 Sodium Chloride IV Q18H [facility] Insulin Glargine 40 units 07/20/19 22:00 07/25/19 22:06 Lantus SUB-Q 40 units QHS MOOSE Administration Insulin Human Lispro 0 unit 07/20/19 11:30 07/26/19 12:00 Humalog SUB-Q 1 unit ACHS MOOSE Administration Protocol Magnesium Oxide 400 mg 07/26/19 10:00 07/26/19 09:35 Mag-Ox PO 400 mg QDAY MOOSE Administration Ondansetron HCl 4 mg 07/21/19 11:15 Zofran IV Q8H PRN N/V unrelieved by Emilee Potassium Chloride 40 meq 07/26/19 10:00 07/26/19 09:34 K-Dur PO 40 meq QDAY MOOSE Administration Potassium Phos/Sodium Phos 2 each 07/26/19 11:00 07/26/19 12:02 Phos-Nak PO 07/26/19 16:00 2 each ONCE NR Administration Pregabalin 25 mg 07/25/19 10:00 07/26/19 09:34 Pregabalin PO 25 mg BID MOOSE Administration Pregabalin 75 mg 07/25/19 10:00 07/26/19 09:34 Pregabalin PO 75 mg BID MOOSE Administration
--- NOTE | 2019-07-26 15:43 | Progress Note ---
Assessment and Plan Cultures: blood cx 07/20/2019 no growth blood Cx pending Flu: negative Assessment: 68 y/o male with history of HTN, DM,? muscular dystrophy, psych disorder, chronic leg edema, previous bilateral cellulitis, PVD w/o occlusive disease, well known to our service during previous admission in January 2019 for bilateral cellulitis with presumed right great toe osteomyelitis; admitted on 07/20/2019 due to a-week history of worsening bilateral leg edema, erythema, itching with severe scratching morel: #Sepsis: present on admission with low grade fever, tachycardia,now with high fever; source unclear, likely bilateral legs cellulitis, Flu negative, CXR with possible evolving PNA. #Bilateral legs cellulitis: CT shows soft tissue edema no collections #Previous ? right great toe osteomyelitis: not treated, previous admission in January 2019 for bilateral cellulitis with presumed right great toe osteomyelitis, wound culture grew E faecalis, patient left AMA #Uncontrolled diabetes Recommendations: Continue cefepime 2g IV q 12 hour continue vancomycin with PK consult wound care consult leg elevation anticipate to d/c on dalvance 2 doses (1,000 mg IV x 1 followed by 500 mg IV a week later) for cellulitis. Order sent to adult protective caseworker -appointment for Wednesday for first infusion. Will be receiving full course of antibiotics for cellulitis with the infusions. Will follow. Iva Beaulieu MD [facility] ([facility] M: [phone] O: [phone] F: [phone] Subjective Date of service: 07/26/19 Interval history: Afebrile, no new issues. For discharge today. Patient is recalcitrant. Family will bring him to infusion appointments. Objective - Exam Narrative Exam: General appearance: Alert in NAD Eyes: anicteric sclerae, moist conjunctivae; no lid-lag; Lungs: CTA, with normal respiratory effort and no intercostal retractions CV: RRR no murmur Abdomen: Soft, non-tender; no masses or hepatosplenomegaly Extremities: +pascual marked leg edema, erythema and scratching morel Skin: No rash. Psych: Appropriate affect, alert and oriented to person, place and time. Neuro: alert and oriented x 2. Moving all extermities - Constitutional Vitals: Vital Signs Temp Pulse Resp BP Pulse Ox 98.9 F 84 18 100/64 95 02/12/20 11:53 07/26/19 11:53 07/26/19 11:53 07/26/19 11:53 07/26/19 11:53 Temperature -Last 24 Hours Temperature 98.9 F Temperature 97.5 F Temperature 98.7 F Temperature 100.1 F - Labs CBC & Chem 7: 07/26/19 08:01 07/26/19 07:56 Labs: Abnormal lab results 07/25/19 07/25/19 07/26/19 Range/Units 16:36 22:06 07:47 Hgb (11.8-15.2) gm/dl Hct (35.5-45.6) % Potassium (3.6-5.0) mmol/L Chloride (98-107) mmol/L Carbon Dioxide (22-30) mmol/L Glucose (75-100) mg/dL POC Glucose 148 H 245 H 156 H (70-105) Calcium (8.4-10.2) mg/dL Phosphorus (2.5-4.5) mg/dL 07/26/19 07/26/19 07/26/19 Range/Units 07:56 08:01 11:22 Hgb 10.5 L (11.8-15.2) gm/dl Hct 31.0 L (35.5-45.6) % Potassium 3.1 L (3.6-5.0) mmol/L Chloride 109.5 H (98-107) mmol/L Carbon Dioxide 17 L (22-30) mmol/L Glucose 139 H (75-100) mg/dL POC Glucose 198 H (70-105) Calcium 7.6 L (8.4-10.2) mg/dL Phosphorus 2.30 L (2.5-4.5) mg/dL
[2019-07-27] MEDS ORDERED: VANCOMYCIN 1,250 MG in SODIUM CHLORIDE 0.9% 250ML 250 ML IV SCH
== END 2019-07-26 15:45 | disposition home or self-care (01) | DRG 871 ==
LOC: 3A 10:14 → UNDOADMIN 10:14 → 3A 11:13 → INTOOBSV 11:13 → OBSVTOIN 07-21 14:28 → 3A 07-21 21:20
PROVIDERS: ADMIT Internal Medicine; ATTEND Internal Medicine
DX: A41.9 Sepsis, unspecified organism (principal); N17.0 Acute kidney failure with tubular necrosis; L03.116 Cellulitis of left lower limb; L03.115 Cellulitis of right lower limb; E87.2 Acidosis; I95.9 Hypotension, unspecified; I10 Essential (primary) hypertension; E78.5 Hyperlipidemia, unspecified; I73.9 Peripheral vascular disease, unspecified; L53.9 Erythematous condition, unspecified; E87.6 Hypokalemia; E83.42 Hypomagnesemia; N28.81 Hypertrophy of kidney; E86.9 Volume depletion, unspecified; F12.10 Cannabis abuse, uncomplicated; Z83.3 Family history of diabetes mellitus; Z88.1 Allergy status to other antibiotic agents; Z79.4 Long term (current) use of insulin; Z79.899 Other long term (current) drug therapy; Z88.8 Allergy status to other drugs, medicaments and biological substances
CPT/HCPCS: 36415; 71045; 76775; 80048; 80202; 81001; 82140; 82570; 82962; 83036; 83735; 84100; 84300; 85014; 85018; 85025; 85027; 86140; 87040; 87400; 93970; G0378; 87502; A6250; G0379; J0692; J0696; J1644; J1650; J1815; J2060; J3370; J3475; J3480; J7030; J7040; J7050